=== PATIENT | male | born 1930 | race Caucasian/White ===

== ENCOUNTER → 2016-07-26 | Outpatient (CLI) | payer MEDICARE, BC ==
--- NOTE | 2016-07-26 15:14 | US ---
EXAMINATION TYPE: US thyroid st tissue head/neck DATE OF EXAM: 07/26/2016 2:44 PM COMPARISON: US on PACS May 31, 2015. CLINICAL HISTORY: E04.1 Thyroid nodule. GLAND SIZE: Right Lobe: 4.0 x 1.3 x 1.9 cm Overall Parenchyma: heterogenous Left Lobe: 2.7 x 0.9 x 0.8 cm Overall Parenchyma: homogeneous Isthmus Thickness: 0.3 cm NODULES RIGHT: # of nodules measured on right: 1 1. 1.4 X 1.3 x 1.2 cm hypoechoic mixed nodule at the mid pole with poorly defined margins. This no dule is wider than tall and shows intranodular vascularity. Prior size: 1.3 x 0.9 x 1.0 cm LEFT: # of nodules measured on left: 0 ISTHMUS: # of nodules measured in the isthmus: 0 There is redemonstration of small sized left thyroid lobe. There is stable 1.3 cm solid and cystic no dule mid pole level right thyroid lobe. No new nodules are evident. IMPRESSION: Stable 1.3 cm mixed right thyroid nodule. No new nodules identified.
== END | disposition home or self-care (01) ==
LOC: RADUSWWP 14:18
PROVIDERS: ATTEND Family Medicine
DX: E04.1 Nontoxic single thyroid nodule (principal)
CPT/HCPCS: 76536

== ENCOUNTER 2016-08-12 19:57 | Emergency (ER) | payer MEDICARE, BC ==
[2016-08-12 20:23] VITALS: TEMP 97.4
--- NOTE | 2016-08-12 20:50 | ED ---
General Adult HPI - General Chief complaint: Neuro Symptoms/Deficit Stated complaint: Poss Stroke Time Seen by Provider: 08/12/16 20:14 Source: patient, family Mode of arrival: wheelchair Limitations: no limitations - History of Present Illness Initial comments: 86-year-old male presents with weakness. He is been weaker over the last 2 days he has been leaning to the left side today. No acute onset no difficulty with vision no double vision blurry vision no slurring his words no facial weakness no nausea vomiting chest pain. History of [id number] diabetes hypertension hyperlipidemia. No previous history of stroke. - Related Data Allergies Allergy/AdvReac Type Severity Reaction Status Date / Time No Known Allergies Allergy Verified 08/12/16 20:59 Review of Systems ROS Statement: Those systems with pertinent positive or pertinent negative responses have been documented in the HPI. ROS Other: All systems not noted in ROS Statement are negative. Constitutional: Denies: fever, chills Eyes: Denies: eye pain, eye discharge ENT: Denies: ear pain, throat pain Respiratory: Denies: cough Cardiovascular: Denies: chest pain Gastrointestinal: Denies: abdominal pain, nausea, vomiting, diarrhea Skin: Denies: rash Neurological: Denies: headache Psychiatric: Denies: anxiety, depression Hematological/Lymphatic: Denies: easy bleeding, easy bruising Past Medical History Past Medical History: Dementia, Diabetes Mellitus, Hyperlipidemia, Hypertension Additional Past Medical History / Comment(s): CLL History of Any Multi-Drug Resistant Organisms: None Reported Additional Past Surgical History / Comment(s): cataract Past Psychological History: No Psychological Hx Reported Smoking Status: Former smoker Past Alcohol Use History: None Reported Past Drug Use History: None Reported General Exam Limitations: no limitations General appearance: alert, in no apparent distress Head exam: Present: atraumatic Eye exam: Present: normal appearance, PERRL, EOMI ENT exam: Present: normal oropharynx, mucous membranes moist Neck exam: Present: normal inspection Respiratory exam: Present: normal lung sounds bilaterally Cardiovascular Exam: Present: regular rate, normal heart sounds GI/Abdominal exam: Present: soft. Absent: tenderness Extremities exam: Present: normal inspection Back exam: Present: normal inspection Neurological exam: Present: alert, oriented X3, CN II-XII intact, other ( Masklike facies somewhat slow in movement questions whether there is some Parkinson's. His stroke scale was 0). Absent: motor sensory deficit, reflexes normal Skin exam: Present: warm, dry Course Vital Signs 08/12/16 08/12/16 20:18 23:59 Temperature 97.4 F L Pulse Rate 64 61 Respiratory 18 18 Rate Blood Pressure 169/66 151/79 O2 Sat by Pulse 98 96 Oximetry Medical Decision Making - Lab Data Result diagrams: 08/12/16 21:10 08/12/16 21:10 Lab Results 08/12/16 08/12/16 08/12/16 Range/Units 20:33 21:10 21:10 WBC 24.9 H (3.8-10.6) k/uL RBC 3.15 L (4.30-5.90) m/uL Hgb 10.2 L (13.0-17.5) gm/dL Hct 30.8 L (39.0-53.0) % MCV 97.8 (80.0-100.0) fL MCH 32.5 (25.0-35.0) pg MCHC 33.3 (31.0-37.0) g/dL RDW 13.2 (11.5-15.5) % Plt Count 109 L (150-450) k/uL Neutrophils % (Manual) 19.0 % Lymphocytes % (Manual) 80.0 % Monocytes % (Manual) 1.0 % Neutrophils # (Manual) 4.7 (1.3-7.7) k/uL Lymphocytes # (Manual) 19.9 H (1.0-4.8) k/uL Monocytes # (Manual) 0.2 (0-1.0) k/uL Nucleated RBCs 0 (0-0) /100 WBC Manual Slide Review Performed RBC Morphology Normal PT 11.5 (9.0-12.0) sec INR 1.1 (<1.1) APTT 25.1 (22.0-30.0) sec Sodium 141 (137-145) mmol/L Potassium 4.6 (3.5-5.1) mmol/L Chloride 103 (98-107) mmol/L Carbon Dioxide 25 (22-30) mmol/L Anion Gap 13 mmol/L BUN 37 H (9-20) mg/dL Creatinine 1.10 (0.66-1.25) mg/dL Est GFR (MDRD) Af Amer >60 (>60 ml/min/1.73 sqM) Est GFR (MDRD) Non-Af >60 (>60 ml/min/1.73 sqM) Glucose 172 H (74-99) mg/dL Calcium 9.4 (8.4-10.2) mg/dL Total Bilirubin 1.1 (0.2-1.3) mg/dL AST 26 (17-59) U/L ALT 22 (21-72) U/L Alkaline Phosphatase 46 (38-126) U/L Total Creatine Kinase (55-170) U/L CK-MB (CK-2) (0.0-2.4) ng/mL CK-MB (CK-2) Rel Index Troponin I Total Protein 6.6 (6.3-8.2) g/dL Albumin 4.4 (3.5-5.0) g/dL 08/12/16 08/12/16 Range/Units 21:10 21:10 WBC (3.8-10.6) k/uL RBC (4.30-5.90) m/uL Hgb (13.0-17.5) gm/dL Hct (39.0-53.0) % MCV (80.0-100.0) fL MCH (25.0-35.0) pg MCHC (31.0-37.0) g/dL RDW (11.5-15.5) % Plt Count (150-450) k/uL Neutrophils % (Manual) % Lymphocytes % (Manual) % Monocytes % (Manual) % Neutrophils # (Manual) (1.3-7.7) k/uL Lymphocytes # (Manual) (1.0-4.8) k/uL Monocytes # (Manual) (0-1.0) k/uL Nucleated RBCs (0-0) /100 WBC Manual Slide Review RBC Morphology PT (9.0-12.0) sec INR (<1.1) APTT (22.0-30.0) sec Sodium (137-145) mmol/L Potassium (3.5-5.1) mmol/L Chloride (98-107) mmol/L Carbon Dioxide (22-30) mmol/L Anion Gap mmol/L BUN (9-20) mg/dL Creatinine (0.66-1.25) mg/dL Est GFR (MDRD) Af Amer (>60 ml/min/1.73 sqM) Est GFR (MDRD) Non-Af (>60 ml/min/1.73 sqM) Glucose (74-99) mg/dL Calcium (8.4-10.2) mg/dL Total Bilirubin (0.2-1.3) mg/dL AST (17-59) U/L ALT (21-72) U/L Alkaline Phosphatase (38-126) U/L Total Creatine Kinase 65 (55-170) U/L CK-MB (CK-2) 1.4 (0.0-2.4) ng/mL CK-MB (CK-2) Rel Index 2.2 Troponin I Cancelled <0.012 Total Protein (6.3-8.2) g/dL Albumin (3.5-5.0) g/dL - EKG Data -: EKG Interpreted by Me 08/12/16 20:51 EKG 08/12/20162005 ventricular rate 60 bpm, [place] interval 202 ms, QRS duration 86 ms, QT interval 388 ms normal sinus rhythm borderline first-degree heart block no significant ST-T change Disposition Clinical Impression: Parkinsonian features Disposition: HOME SELF-CARE Condition: Fair Instructions: Parkinson Disease (ED) Referrals: Nikki Cisse III, MD [Primary Care Provider] - 1-2 days
[2016-08-12 20:52] LABS: INR 1.1 (<1.1); Partial Thromboplastin Time 25.1 sec (22.0-30.0); Prothrombin Time 11.5 sec (9.0-12.0)
[2016-08-12 21:16] LABS: CHCM 32.9; HCT 30.8 % (39.0-53.0); HDW 2.46; HGB 10.2 gm/dL (13.0-17.5); MCH 32.5 pg (25.0-35.0); MCHC 33.3 g/dL (31.0-37.0); MCV 97.8 fL (80.0-100.0); Mean Platelet Volume 7.8; RBC 3.15 m/uL (4.30-5.90); RDW 13.2 % (11.5-15.5); WBC 24.9 k/uL (3.8-10.6); WBC (Perox) 24.93
[2016-08-12 21:23] LABS: Add Differential Manual Differential
[2016-08-12 21:31] LABS: Manual Review Performed; Nucleated Red Blood Cells 0 /100 WBC (0-0); RBC Morphology Normal; Total Cells Counted 200
[2016-08-12 21:45] LABS: Anion Gap 13 mmol/L; Calcium 9.4 mg/dL (8.4-10.2); Carbon Dioxide 25 mmol/L (22-30); Chloride 103 mmol/L (98-107); Glucose 172 mg/dL (74-99); Non-African American GFR(MDRD) >60 (>60 ml/min/1.73 sqM); Sodium 141 mmol/L (137-145); Total Bilirubin 1.1 mg/dL (0.2-1.3); Total Protein 6.6 g/dL (6.3-8.2)
[2016-08-12 21:46] LABS: Blood Urea Nitrogen 37 mg/dL (9-20); Potassium 4.6 mmol/L (3.5-5.1)
[2016-08-12 21:47] LABS: ALT 22 U/L (21-72); AST 26 U/L (17-59); Alkaline Phosphatase 46 U/L (38-126)
--- NOTE | 2016-08-12 21:53 | CT ---
EXAMINATION TYPE: CT brain wo con DATE OF EXAM: 08/12/2016 9:21 PM COMPARISON: NONE INDICATION: Neural deficits DLP: 1167.7 mGycm, Automated exposure control for dose reduction was used. CONTRAST: None CT of the brain is performed utilizing 3 mm thick sections through the posterior fossa and 3 mm thick sections through the remaining calvarium. Study is performed within 24 hours of arrival to the hosp ital. No abnormal hyperdensity is present to suggest an acute intracranial hemorrhage. No mass lesion is evident. No acute infarcts are evident. Periventricular white matter hypodensity is present compatible with mi crovascular ischemic change Ventricles and sulci are prominent for the patient age. Paranasal sinuses and mastoid air cells within the [id number] are clear. IMPRESSIONS: 1. Atrophy with periventricular white matter ischemic type changes.
--- NOTE | 2016-08-12 21:55 | XR ---
EXAMINATION TYPE: XR chest 2V DATE OF EXAM: 08/12/2016 9:17 PM COMPARISON: None INDICATION: Altered mental status TECHNIQUE: Single frontal view of the chest is obtained. FINDINGS: The heart size is normal. The pulmonary vasculature is normal. The lungs are clear. IMPRESSION: 1. No acute pulmonary process.
[2016-08-12 22:03] LABS: Creatine Kinase MB 1.4 ng/mL (0.0-2.4)
[2016-08-13 00:27] VITALS: BP 165/65; PULSE 62; RESP 16
== END 2016-08-13 01:06 | disposition home or self-care (01) ==
LOC: EC 19:57
DX: R53.1 Weakness (principal); Z87.891 Personal history of nicotine dependence
CPT/HCPCS: 36415; 70450; 71020; 80053; 82550; 82553; 84484; 85025; 85610; 85730; 93005; 99284

== ENCOUNTER → 2016-09-12 | Outpatient (CLI) | payer MEDICARE, BC ==
--- NOTE | 2016-09-12 11:51 | MR ---
MRI of the brain with and without contrast HISTORY: Abnormal gait. TECHNIQUE: T1-weighted sagittal, T2, FLAIR, and diffusion axial, postcontrast T1 axial and coronal views of the brain are submitted. CONTRAST: 15 mL MultiHance COMPARISON: CT brain 08/12/2016, MRI IACs 07/25/2012 FINDINGS: There is no evidence of acute ischemia. Abnormal signal within the juventino is suggestive of remote ischemic change with metallic artifact is see n. 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 There is generalized degenerative change of the greater central component. No enhancing mass. Changes of chronic mastoiditis and sinusitis noted. Craniocervical junction maintained. Sella turcica has a normal appearance. No evidence of cerebellopo ntine angle mass. WHITE MATTER: Confluent and numerous multifocal areas of abnormal white matter signal are not specific. IMPRESSION: 1. No definite acute ischemia. Area of high signal on diffusion within the juventino is felt more likely a rtifactual but should be correlated clinically. 2. Degenerative change with a much greater central component raises the possibility of normal pressur e hydrocephalus. 3. Nonspecific white matter changes most typical remote microvascular ischemia.
== END | disposition home or self-care (01) ==
LOC: RADMRIMAIN 10:51
PROVIDERS: ATTEND Family Medicine
DX: G31.9 Degenerative disease of nervous system, unspecified (principal); R90.82 White matter disease, unspecified
CPT/HCPCS: 70553; A9577

== ENCOUNTER 2017-05-10 19:59 | Inpatient (IN) | payer MEDICARE, BC ==
[2017-05-10 20:04] LABS: Glucose,Whole Blood 341 mg/dL (75-99)
[2017-05-10] MEDS ORDERED: SODIUM CHLORIDE 0.9% 1,000 ML IV ONE (20:15)
--- NOTE | 2017-05-10 20:19 | ED ---
General Adult HPI - General Chief complaint: Altered Mental Status Stated complaint: Altered Time Seen by Provider: 05/10/17 20:02 Source: patient, family, EMS, RN notes reviewed Mode of arrival: EMS Limitations: altered mental status - History of Present Illness Initial comments: Patient is a pleasant 87-year-old male presenting to the emergency department with change in mental status. Patient has had a rapid decline in the mental status over the past 2 months. Patient has been evaluated for Parkinson's. Patient has had some rigidity of his hands and wrists. Patient is having difficulty performing activities of daily living. Patient is having difficulty with walking especially the last 2 days. Family is concerned for possible infection. No reported isolated area of weakness. Patient has had some leg swelling. 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 Patient states he did previously have discomfort with that however that has improved. Patient is a poor historian and majority of history comes from family. - Related Data Home Medications Medication Instructions Recorded Confirmed Atorvastatin [Lipitor] 20 mg PO DAILY 05/10/17 05/10/17 Finasteride [Proscar] 5 mg PO DAILY 05/10/17 05/10/17 Furosemide [Lasix] 20 mg PO Q48H 05/10/17 05/10/17 Lisinopril [Prinivil] 10 mg PO DAILY 05/10/17 05/10/17 Potassium Chloride ER [K-Dur 10] 10 meq PO Q48H 05/10/17 05/10/17 glipiZIDE [Glucotrol] 10 mg PO AC-BRKFST 05/10/17 05/10/17 Allergies Allergy/AdvReac Type Severity Reaction Status Date / Time No Known Allergies Allergy Verified 05/10/17 20:26 Review of Systems ROS Statement: Those systems with pertinent positive or pertinent negative responses have been documented in the HPI. ROS Other: All systems not noted in ROS Statement are negative. Constitutional: Denies: fever Eyes: Denies: eye pain ENT: Denies: ear pain Respiratory: Denies: cough Cardiovascular: Denies: chest pain Endocrine: Denies: fatigue Gastrointestinal: Denies: abdominal pain Genitourinary: Denies: dysuria Musculoskeletal: Denies: back pain Skin: Denies: rash Neurological: Reports: weakness, confusion. Denies: headache Past Medical History Past Medical History: Dementia, Diabetes Mellitus, Hyperlipidemia, Hypertension Additional Past Medical History / Comment(s): CLL History of Any Multi-Drug Resistant Organisms: None Reported Additional Past Surgical History / Comment(s): cataract Past Psychological History: No Psychological Hx Reported Smoking Status: Former smoker Past Alcohol Use History: None Reported Past Drug Use History: None Reported General Exam Limitations: altered mental status General appearance: alert, in no apparent distress Head exam: Present: atraumatic Eye exam: Present: normal appearance, PERRL, other (Left eye unable to move laterally.) ENT exam: Present: normal oropharynx Neck exam: Present: normal inspection Respiratory exam: Present: normal lung sounds bilaterally Cardiovascular Exam: Present: regular rate, normal rhythm GI/Abdominal exam: Present: soft. Absent: tenderness Extremities exam: Present: pedal edema. Absent: calf tenderness Neurological exam: Present: alert, altered Expanded Patient oriented to: Present: person. Absent: place, time Cranial nerves: EOM's Intact: Abnormal Left (Left eye unable to move laterally) , Facial Sensation: Normal Sensory exam: Upper Extremity Light Touch: Normal, Lower Extremity Light Touch: Normal Motor strength exam: RUE: 5, LUE: 5, RLE: 5, LLE: 5 Eye Response: (4) open spontaneously Motor Response: (6) obeys commands Verbal Response: (4) confused conversation Psychiatric exam: Present: normal affect, normal mood Skin exam: Present: normal color Course Vital Signs 05/10/17 05/10/17 05/10/17 20:00 20:06 21:36 Temperature 98.4 F Pulse Rate 75 76 71 Respiratory 16 18 16 Rate Blood Pressure 142/63 114/54 O2 Sat by Pulse 97 97 98 Oximetry EKG Findings - EKG Comments: EKG Findings:: Sinus rhythm 77. PVC present. CO 168. QRS 88. QT 364. QTC 411. Normal axis. Normal QRS. No acute ST change. Medical Decision Making - Medical Decision Making Patient reevaluated and resting comfortably in bed. Family states patient does have a history of CLL. Case was discussed in detail with Dr. Manning, who will admit for Dr. Cisse. - Lab Data Result diagrams: 05/10/17 20:43 05/10/17 20:43 Lab Results 05/10/17 05/10/17 05/10/17 Range/Units 20:02 20:30 20:43 WBC (3.8-10.6) k/uL RBC (4.30-5.90) m/uL Hgb (13.0-17.5) gm/dL Hct (39.0-53.0) % MCV (80.0-100.0) fL MCH (25.0-35.0) pg MCHC (31.0-37.0) g/dL RDW (11.5-15.5) % Plt Count (150-450) k/uL Neutrophils % % Lymphocytes % % Monocytes % % Eosinophils % % Basophils % % Neutrophils # (1.3-7.7) k/uL Lymphocytes # (1.0-4.8) k/uL Monocytes # (0-1.0) k/uL Eosinophils # (0-0.7) k/uL Basophils # (0-0.2) k/uL Manual Slide Review Hypochromasia PT (9.0-12.0) sec INR (<1.2) APTT (22.0-30.0) sec Sodium 136 L (137-145) mmol/L Potassium 4.4 (3.5-5.1) mmol/L Chloride 98 (98-107) mmol/L Carbon Dioxide 31 H (22-30) mmol/L Anion Gap 7 mmol/L BUN 36 H (9-20) mg/dL Creatinine 1.00 (0.66-1.25) mg/dL Est GFR (MDRD) Af Amer >60 (>60 ml/min/1.73 sqM) Est GFR (MDRD) Non-Af >60 (>60 ml/min/1.73 sqM) Glucose 321 H (74-99) mg/dL POC Glucose (mg/dL) 341 H (75-99) mg/dL POC Glu Business Operations Director ID Marianne Zhong Calcium 8.8 (8.4-10.2) mg/dL Total Bilirubin 0.8 (0.2-1.3) mg/dL AST 11 L (17-59) U/L ALT 32 (21-72) U/L Alkaline Phosphatase 77 (38-126) U/L Total Creatine Kinase (55-170) U/L CK-MB (CK-2) (0.0-2.4) ng/mL CK-MB (CK-2) Rel Index Troponin I (0.000-0.034) ng/mL Total Protein 4.8 L (6.3-8.2) g/dL Albumin 2.5 L (3.5-5.0) g/dL Urine Color Yellow Urine Appearance Clear (Clear) Urine pH 5.0 (5.0-8.0) Ur Specific Gerry 1.011 (1.001-1.035) Urine Protein Negative (Negative) Urine Glucose (UA) 4+ H (Negative) Urine Ketones Negative (Negative) Urine Blood Trace H (Negative) Urine Nitrite Negative (Negative) Urine Bilirubin Negative (Negative) Urine Urobilinogen <2.0 (<2.0) mg/dL Ur Leukocyte Esterase Negative (Negative) Urine RBC 1 (0-5) /hpf Urine WBC <1 (0-5) /hpf Hyaline Casts 8 H (0-2) /lpf Urine Mucus Rare H (None) /hpf Acetone, Qual Negative (Negative) 05/10/17 05/10/17 05/10/17 Range/Units 20:43 20:43 20:43 WBC 19.8 H (3.8-10.6) k/uL RBC 2.60 L (4.30-5.90) m/uL Hgb 7.4 L (13.0-17.5) gm/dL Hct 23.9 L (39.0-53.0) % MCV 91.9 (80.0-100.0) fL MCH 28.5 (25.0-35.0) pg MCHC 31.0 (31.0-37.0) g/dL RDW 13.5 (11.5-15.5) % Plt Count 283 (150-450) k/uL Neutrophils % 26 % Lymphocytes % 70 % Monocytes % 1 % Eosinophils % 0 % Basophils % 1 % Neutrophils # 5.1 (1.3-7.7) k/uL Lymphocytes # 13.8 H (1.0-4.8) k/uL Monocytes # 0.2 (0-1.0) k/uL Eosinophils # 0.0 (0-0.7) k/uL Basophils # 0.2 (0-0.2) k/uL Manual Slide Review Performed Hypochromasia Marked PT 10.9 (9.0-12.0) sec INR 1.1 (<1.2) APTT 23.4 (22.0-30.0) sec Sodium (137-145) mmol/L Potassium (3.5-5.1) mmol/L Chloride (98-107) mmol/L Carbon Dioxide (22-30) mmol/L Anion Gap mmol/L BUN (9-20) mg/dL Creatinine (0.66-1.25) mg/dL Est GFR (MDRD) Af Amer (>60 ml/min/1.73 sqM) Est GFR (MDRD) Non-Af (>60 ml/min/1.73 sqM) Glucose (74-99) mg/dL POC Glucose (mg/dL) (75-99) mg/dL POC Glu Business Operations Director ID Calcium (8.4-10.2) mg/dL Total Bilirubin (0.2-1.3) mg/dL AST (17-59) U/L ALT (21-72) U/L Alkaline Phosphatase (38-126) U/L Total Creatine Kinase <20 L (55-170) U/L CK-MB (CK-2) 0.5 (0.0-2.4) ng/mL CK-MB (CK-2) Rel Index Troponin I <0.012 (0.000-0.034) ng/mL Total Protein (6.3-8.2) g/dL Albumin (3.5-5.0) g/dL Urine Color Urine Appearance (Clear) Urine pH (5.0-8.0) Ur Specific Gerry (1.001-1.035) Urine Protein (Negative) Urine Glucose (UA) (Negative) Urine Ketones (Negative) Urine Blood (Negative) Urine Nitrite (Negative) Urine Bilirubin (Negative) Urine Urobilinogen (<2.0) mg/dL Ur Leukocyte Esterase (Negative) Urine RBC (0-5) /hpf Urine WBC (0-5) /hpf Hyaline Casts (0-2) /lpf Urine Mucus (None) /hpf Acetone, Qual (Negative) - Radiology Data Radiology results: report reviewed (Computed tomography scan of the brain shows atrophy and normal pressure hydrocephalus. No acute abnormality.), image reviewed (Two-view chest x-ray shows no acute process.) Disposition Clinical Impression: Altered mental status Disposition: ADMITTED IP TO THIS [facility] Referrals: Nikki Cisse III, MD [Primary Care Provider] - 1-2 days Decision Time: 21:45
[2017-05-10 20:50] LABS: Appearance,Urine Clear (Clear); Bilirubin,Urine Negative (Negative); Blood,Urine Trace (Negative); Color,Urine Yellow; Glucose,Urine (UA) 4+ (Negative); Hyaline Casts,Urine 8 /lpf (0-2); Ketones,Urine Negative (Negative); Leukocyte Esterase,Urine Negative (Negative); Mucus,Urine Rare /hpf; Nitrite,Urine Negative (Negative); Protein,Urine Negative (Negative); RBC,Urine 1 /hpf (0-5); Specific Gravity,Urine 1.011 (1.001-1.035); Urobilinogen,Urine <2.0 mg/dL (<2.0); WBC,Urine <1 /hpf (0-5)
[2017-05-10 21:03] LABS: INR 1.1 (<1.2); Partial Thromboplastin Time 23.4 sec (22.0-30.0); Prothrombin Time 10.9 sec (9.0-12.0)
[2017-05-10 21:08] LABS: ALT 32 U/L (21-72); AST 11 U/L (17-59); Albumin 2.5 g/dL (3.5-5.0); Alkaline Phosphatase 77 U/L (38-126); Anion Gap 7 mmol/L; Blood Urea Nitrogen 36 mg/dL (9-20); Calcium 8.8 mg/dL (8.4-10.2); Carbon Dioxide 31 mmol/L (22-30); Chloride 98 mmol/L (98-107); Glucose 321 mg/dL (74-99); Potassium 4.4 mmol/L (3.5-5.1); Sodium 136 mmol/L (137-145); Total Bilirubin 0.8 mg/dL (0.2-1.3); Total Protein 4.8 g/dL (6.3-8.2)
[2017-05-10 21:11] LABS: Basophils # (A) 0.2 k/uL (0-0.2); Basophils % (A) 1 %; Eosinophils % (A) 0 %; HCT 23.9 % (39.0-53.0); HGB 7.4 gm/dL (13.0-17.5); Hypochromasia Marked; MCH 28.5 pg (25.0-35.0); MCV 91.9 fL (80.0-100.0); Mean Platelet Volume 7.7; Monocytes # (A) 0.2 k/uL (0-1.0); Monocytes % (A) 1 %; Neutrophils # (A) 5.1 k/uL (1.3-7.7); Neutrophils % (A) 26 %; Platelet Count 283 k/uL (150-450); RDW 13.5 % (11.5-15.5); WBC 19.8 k/uL (3.8-10.6)
[2017-05-10 21:13] LABS: Creatine Kinase <20 U/L (55-170); Lymphocytes # (A) 13.8 k/uL (1.0-4.8)
--- NOTE | 2017-05-10 21:18 | CT ---
EXAMINATION TYPE: CT brain wo con DATE OF EXAM: 05/10/2017 COMPARISON: NONE HISTORY: Altered mental status. CT DLP: 1058 mGycm Automated exposure control for dose reduction was used. FINDINGS: THERE IS CEREBRAL CORTICAL ATROPHY. THERE IS NO MASS EFFECT NOR MIDLINE SHIFT. THERE IS NO SIGN OF IN TRACRANIAL HEMORRHAGE. THERE IS ENLARGEMENT OF THE VENTRICLES. CALVARIUM IS INTACT. 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 No acute intracranial abnormality.
--- NOTE | 2017-05-10 21:20 | XR ---
EXAMINATION TYPE: XR chest 2V DATE OF EXAM: 05/10/2017 COMPARISON: 08/12/2016 HISTORY: Altered mental status. Chest pain TECHNIQUE: Frontal and lateral views of the chest are obtained. FINDINGS: There is no heart failure nor confluent pneumonic infiltrate. There is calcified granuloma ta in the mediastinum. There are chest leads. Bony thorax is intact. IMPRESSION: No active cardiopulmonary disease. No change. Normal heart.
[2017-05-10 21:27] LABS: Creatine Kinase MB 0.5 ng/mL (0.0-2.4); Troponin I <0.012 ng/mL (0.000-0.034)
[2017-05-10 21:29] LABS: Lymphocytes % (A) 70 %
--- NOTE | 2017-05-10 22:25 | XR ---
EXAMINATION TYPE: XR pelvis AP view DATE OF EXAM: 05/10/2017 COMPARISON: NONE HISTORY: Pain TECHNIQUE: Single view FINDINGS: Pelvic ring appears intact. Proximal femurs are intact. I see no fracture. Sacroiliac joint s appear normal. Hip joint spaces are normal for age. IMPRESSION: Negative pelvis x-ray exam.
[2017-05-10 23:19] LABS: Glucose,Whole Blood 339 mg/dL (75-99)
[2017-05-10] MEDS ORDERED: INSULIN ASPART 100 UNIT/ML 1 ML 10 ML VIAL SQ STA ×2 (23:20→23:22)
[2017-05-11] MEDS: SODIUM CHLORIDE 0.9% 1,000 ML IV SCH ×3 (00:41→14:31)
[2017-05-11 01:13] LABS: Glucose,Whole Blood 269 mg/dL (75-99)
[2017-05-11 05:41] LABS: Glucose,Whole Blood 114 mg/dL (75-99)
[2017-05-11 06:25] LABS: HCT 21.3 % (39.0-53.0); Hypochromasia Moderate; MCH 27.8 pg (25.0-35.0); MCHC 29.6 g/dL (31.0-37.0); MCV 93.7 fL (80.0-100.0); Mean Platelet Volume 7.4; Platelet Count 236 k/uL (150-450); RBC 2.28 m/uL (4.30-5.90); RDW 14.3 % (11.5-15.5); WBC 18.2 k/uL (3.8-10.6)
[2017-05-11] MEDS: INSULIN ASPART 100 UNIT/ML 1 ML 10 ML VIAL SQ SCH ×4 (06:30→21:33)
[2017-05-11 06:39] LABS: HGB 6.3 gm/dL (13.0-17.5)
[2017-05-11 06:40] LABS: Anion Gap 7 mmol/L; Blood Urea Nitrogen 33 mg/dL (9-20); Calcium 8.4 mg/dL (8.4-10.2); Carbon Dioxide 31 mmol/L (22-30); Chloride 102 mmol/L (98-107); Cholesterol <50 mg/dL (<200); Glucose 99 mg/dL (74-99); HDL Cholesterol 24 mg/dL (40-60); LDL Cholesterol,Calculated 18 mg/dL (0-99); Potassium 4.2 mmol/L (3.5-5.1); Sodium 140 mmol/L (137-145); Triglycerides 41 mg/dL (<150)
[2017-05-11] MEDS: glipiZIDE 10 MG TAB PO SCH (07:01)
[2017-05-11 07:26] LABS: Basophils # (M) 0.18 k/uL (0-0.2); Lymphocytes # (M) 12.19 k/uL (1.0-4.8); Monocytes # (M) 0.18 k/uL (0-1.0); Neutrophils # (M) 5.64 k/uL (1.3-7.7); Neutrophils % (M) 31 %; Nucleated Red Blood Cells 0 /100 WBC (0-0); Total Cells Counted 100
--- NOTE | 2017-05-11 08:07 | HP ---
HISTORY AND PHYSICAL CHIEF COMPLAINT: Change in mental status. HISTORY OF PRESENT ILLNESS: This 87-year-old gentleman with a past history of dementia, diabetes, hypertension, hyperlipidemia, chronic lymphedema, being followed by Dr. Cisse in the outpatient setting was admitted with change in mental status. After Thanksgiving the patient had a problem with the left testicular area with hydrosus and as well as which was aspirated by Dr. Isabel. The patient had problems with difficulty in ambulation and change in mental status and Parkinson's was suspected. The patient has also seen Dr. Art Huff in the outpatient setting. Currently for the last 2 days patient took a turn for the worse and the patient has minimal responsiveness and the patient taken to [facility] and admitted for further evaluation and treatment. White count is elevated. There is no history of any fever, rigors or chills. No history of any headache, loss of consciousness or seizures. The patient unable to give coherent history. Most of the history taken from my discussion with the ER physician as well as the family at the bedside and review of the chart. PAST MEDICAL HISTORY: History of dementia, diabetes, hypertension, hyperlipidemia, pneumonia, chronic lymphoid leukemia. MEDICATIONS: Prior to admission include: Medications are: 1. Prinivil 10 mg b.i.d. 2. Lasix 20 mg. 3. Proscar 5 mg daily. 4. Lipitor 20 mg daily. 5. Glucotrol 10 mg a.c. breakfast. 6. K-Dur 10 mEq q.48h hours. ALLERGIES: Allergies are none. Family history, social history and review of systems could not be taken at length. Otherwise because of the patient's change in mental status. Previous history of smoking per chart. PHYSICAL EXAM: Patient is stuporous, but arousable. Pulse 71, blood pressure 140/54, respirations 16, temperature 98.4, pulse ox 98% on 2 L. HEENT is conjunctivae normal. Oral mucosa dry. Neck is no jugular venous distention. No carotid bruit. No lymph node enlargement. Cardiovascular system: S1, S2 muffled. Respirations: Breath sounds diminished in the bases. No rhonchi and no crackles. ABDOMEN: Soft, obese, nontender. No mass palpable. Legs: Bilateral leg edema and excoriation also present. Nervous system: Higher functions as mentioned earlier. Otherwise minimal movements and increased tone and tremors also present. Gait: The patient is not able to ambulate. Skin: Diffuse rash present. Lymphatics: No lymph nodes palpable in the neck, axillae or groin. Joints: The patient has some arthralgia of the shoulder, distended knee on the right side. LAB: Investigations at this time shows WBC 19.2, hemoglobin 7.4, sodium 136, glucose 341 and 321. ASSESSMENT: 1. Change in mental status and weakness, rule out acute transient ischemic attack or stroke. 2. Rule out sepsis. 3. Increased WBC. 4. Anemia normocytic. 5. Hyponatremia. 6. Diabetes type 2. 7. Rule out Parkinson's. 8. Dementia. 9. Hyperlipidemia. 10.Hypertension. 11.History of chronic lymphoid leukemia. RECOMMENDATIONS AND DISCUSSION: This 87-year-old gentleman who presented with multiple complex medical issues, we will monitor the patient closely continue the current management and treatment. At this time I recommend broad-spectrum IV antibiotics. I would also recommend empiric antibiotics. Follow the cultures. Hematology, Oncology, Neurology consulted. We will hold off the empiric antibiotics at this time awaiting cultures. Full neurovascular workup is also being ordered including 2D echo and carotid Doppler. The prognosis extremely guarded because of multiple complex medical issues. Discussed with family who understands and agrees. Copy of dictation being forwarded to Dr. Cisse, who is the primary physician. Continue the IV fluids. DVT prophylaxis. See orders. We will hold diuretics for now. Further recommendations to follow. MMODL / IJN: [id number] / JEFERSON
--- NOTE | 2017-05-11 09:54 | US ---
EXAMINATION TYPE: US carotid duplex BILAT DATE OF EXAM: 05/11/2017 COMPARISON: NONE CLINICAL HISTORY: Stenosis. Altered mental status, exam done portable. EXAM MEASUREMENTS: RIGHT: Peak Systolic Velocity (PSV) cm/sec ----- Right CCA: 61.5 ----- Right ICA: 93.9 ----- Right ECA: 97.9 ICA/CCA ratio: 1.5 RIGHT: End Diastole cm/sec ----- Right CCA: 9.5 ----- Right ICA: 17.8 ----- Right ECA: 0.0 LEFT: Peak Systolic Velocity (PSV) cm/sec ----- Left CCA: 80.1 ----- Left ICA: 111.3 ----- Left ECA: 98.8 ICA/CCA ratio: 1.4 LEFT: End Diastole cm/sec ----- Left CCA: 10.5 ----- Left ICA: 20.9 ----- Left ECA: 0.0 VERTEBRALS (direction of flow): Right Vertebral: Antegrade Left Vertebral: Antegrade Rhythm: Arrhythmia Bilateral intimal thickening, minimal plaque bilateral bulb, no elevated velocities, no significant s tenosis. IMPRESSION: I DO NOT SEE EVIDENCE OF A HEMODYNAMICALLY SIGNIFICANT STENOSIS IN EITHER CAROTID SYSTEM. Criteria for Assigning % of Stenosis / Diameter reduction (Estimation based on the indirect measurements of the internal carotid artery velocities (ICA PSV). 1. Normal (no stenosis)=ICA PSV < 125 cm/s: ratio < 2.0: ICA EDV<40 cm/s. 2. Less than 50% stenosis=ICA PSV < 125 cm/s: ratio < 2.0: ICA EDV<40 cm/s. 3. 50 to 69% stenosis=ICA PSV of 125 to 230 cm/s: ration 2.0 ? 4.0: ICA EDV 40-100 cm/s. 4. Greater than 70% stenosis to near occlusion= ICA PSV > 230 cm/s: ratio > 4.0: ICA EDV > 100 cm/s. 5. Near occlusion= ICA PSV velocities may be low or undetectable: variable ratio and ICA EDV. 6. Total occlusion=unable to detect flow.
[2017-05-11] MEDS: LISINOPRIL 10 MG TAB PO SCH (09:58)
[2017-05-11] MEDS: HEPARIN SODIUM,PORCINE 5,000 UNIT/ML 1 ML VIAL SQ SCH ×2 (09:59→21:35)
[2017-05-11] MEDS: ATORVASTATIN 20 MG TAB PO SCH (09:59)
[2017-05-11] MEDS: FINASTERIDE 5 MG TAB PO SCH (09:59)
[2017-05-11] MEDS: POTASSIUM CHLORIDE ER 10 MEQ TAB.ER.PRT PO SCH (10:02)
[2017-05-11] MEDS: ACETAMINOPHEN TAB 325 MG TAB PO PRN (11:20)
[2017-05-11] MEDS: MULTIVITAMINS, THERA 1 EACH TAB PO SCH (11:20)
[2017-05-11] MEDS: FOLIC ACID 1 MG TAB PO SCH (11:20)
[2017-05-11] MEDS: THIAMINE 100 MG TAB PO SCH (11:20)
[2017-05-11 12:00] LABS: Glucose,Whole Blood 244 mg/dL (75-99)
[2017-05-11] MEDS ORDERED: FUROSEMIDE 10 MG/ML 2 ML VIAL IV STA (13:06)
[2017-05-11] MEDS ORDERED: TAMSULOSIN 0.4 MG CAP.ER.24H PO STA (13:58)
[2017-05-11 14:10] LABS: Hemoglobin A1C 10.5 % (4.0-6.0)
--- NOTE | 2017-05-11 14:49 | P.PN ---
Progress Note - Text Consult dictated Impression: 1- Severe anemia : Acute on chronic > ? blood loss, ? 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 R/O Hemolytic anemia 2- Progressive weakness 3- Parkinson disease 4- Moderate lower ext edema Recommendations: 1- Agree with supportive transfusion 2- Evaluate for Hemolytic process 3- No Rx of CLL at present D/W patient/daughter
--- NOTE | 2017-05-11 15:37 | ECHOF ---
Referral Reason:Thrombus MEASUREMENTS -------- HEIGHT: 188.0 cm WEIGHT: 61.7 kg BP: 139/64 IVSd: 1.0 cm (0.6 - 1.1) LVIDd: 5.1 cm (3.9 - 5.3) LVPWd: 1.0 cm (0.6 - 1.1) IVSs: 1.3 cm LVIDs: 3.2 cm LVPWs: 1.3 cm LAESV Index (A-L): 15.17 ml/m Ao Diam: 4.0 cm (2.0 - 3.7) AV Cusp: 2.4 cm (1.5 - 2.6) LA Diam: 2.9 cm (2.7 - 3.8) EPSS: 1.9 cm MV E Kit: 1.00 m/s MV DecT: 571 ms MV A Kit: 1.39 m/s MV E/A Ratio: 0.72 RAP: 5.00 mmHg RVSP: 31.79 mmHg MV EF SLOPE: 132.12 mm/s (70 - 150) MV EXCURSION: 2.05 cm (> 18.000) FINDINGS -------- Sinus rhythm. This was a technically adequate study. The left ventricular size is normal. Left ventricular wall thickness is normal. Overall left vent ricular systolic function is normal with, an EF between 55 - 60 %. The right ventricle is normal in size and function. Normal LA size by volume 22+/-6 ml/m2. The right atrium is normal in size. Aortic valve is trileaflet and is mildly thickened. The mitral valve leaflets are mildly thickened. There is trace to mild mitral regurgitation. Trace tricuspid regurgitation present. Right ventricular systolic pressure is normal at < 35 mmHg. There is no evidence of pulmonary hypertension. The pulmonic valve was not well visualized. The aortic root size is normal. Normal inferior vena cava with normal inspiratory collapse consistent with estimated right atrial pre ssure of 5 mmHg. There is no pericardial effusion. CONCLUSIONS -------- 1. Sinus rhythm. 2. This was a technically adequate study. 3. Left ventricular wall thickness is normal. 4. Normal LA size by volume 22+/-6 ml/m2. 5. Aortic valve is trileaflet and is mildly thickened. 6. The mitral valve leaflets are mildly thickened. 7. There is trace to mild mitral regurgitation. 8. Trace tricuspid regurgitation present. 9. Right ventricular systolic pressure is normal at < 35 mmHg. 10. The pulmonic valve was not well visualized. 11. The aortic root size is normal. 12. There is no pericardial effusion. FASHION INTERN: Yair Butler RDCS
[2017-05-11 17:05] LABS: Glucose,Whole Blood 140 mg/dL (75-99)
--- NOTE | 2017-05-11 18:23 | P.CNNES ---
History of Present Illness Consult date: 05/11/17 Reason for Consult: Patient with Parkinson's Disease and possible NPH. History of Present Illness: This patient is a 87-year-old right-handed white male who was admitted to Hospital with symptoms of worsening changes in mental status since of last year. Patient had been recently treated for a left testicular hydrocele. Following that his decline in mental status as well as ambulation worsened. He has been seen in the outpatient neurology clinic in December and March of last year and was recommended to consider treatment for mild Parkinson's disease. His daughter at that time did not wish to start him on any new medication. He has been showing increasing symptoms of weakness in his legs and difficulty with ambulation in the last week at home. His daughter with whom he lives has become primary caregiver for him as he requires almost 24 -hour care. The patient was brought in as he was having increasing weakness more recently over the last 2-3 days. He was showing a decline in his responsiveness at home. He was not eating well and there was concern that he may have a urinary tract infection especially since he showed a decline in mental status. Patient was brought into the emergency room and was seen in the ER by Dr. Correa. He was sent for a computed tomography scan of the brain for further evaluation of his recent falls. He also underwent plain x-ray of the pelvis which was negative for any fracture. CAT scan of the brain was reported by the radiologist as showing atrophy and normal pressure-type hydrocephalus. No other acute abnormality was detected. His CAT scan films were actually reviewed today by myself and compared to the previous CAT scan he had done on and there does not appear to be any major changes on this CAT scan as well. His findings do suggest ventriculomegaly but not typical findings for NPH. We did discuss this finding today with Dr. Manning his admitting physician. We will proceed with a lumbar puncture however to see if there is any improvement in his overall condition. We would also suggest that he begin treatment for mild parkinsonism with low-dose Sinemet. Physical therapy has been consulted and he may require subacute rehab placement as well. Today the patient is doing better in terms of his mental status. He is more alert this afternoon and is able to answer simple questions. We did discuss other options for evaluation of NPH including cisternogram in neurosurgical consult however his daughter Aniyah who is his power of deputy county attorney does not wish to proceed with that aggressive treatment until we see how he does with the planned procedures here. We will have physical therapy work with him to assess him for possible inpatient rehab placement. As noted this case was discussed at length with his daughter Aniyah who was at bedside. She is his power of deputy county attorney. His other daughter Alyssa is home he lives with and we have spoken to her in the past on some of his office visits. Aniyah will update her on our current treatment options and plans. The patient is much more awake and alert as compared to this morning. He is answering questions. He was seen by oncology today and there is no evidence of any concern regarding his history of CLL. We have discussed our recommendations for lumbar puncture and trial of low-dose Sinemet with his daughter Aniyah at bedside and she is in full agreement. Neurology is now been consulted for further evaluation and recommendations. Review of Systems Constitutional: Denies chills, Denies fever Eyes: denies blurred vision, denies pain Ears, nose, mouth and throat: Denies headache, Denies sore throat Cardiovascular: Denies chest pain, Denies shortness of breath Respiratory: Denies cough Gastrointestinal: Denies abdominal pain, Denies diarrhea, Denies nausea, Denies vomiting Musculoskeletal: Denies myalgias Integumentary: Denies pruritus, Denies rash Neurological: Reports aphasia, Reports change in mentation, Reports change in speech, Reports confusion, Reports gait dysfunction, Reports lack of coordination, Reports memory loss, Reports motor disturbance, Reports tremors, Denies numbness, Denies weakness Psychiatric: Denies anxiety, Denies depression Endocrine: Denies fatigue, Denies weight change Past Medical History Past Medical History: Coronary Artery Disease (CAD), Diabetes Mellitus, GERD/ Reflux, Hyperlipidemia, Hypertension, Osteoarthritis (OA), Prostate Disorder, Skin Disorder Additional Past Medical History / Comment(s): CLL, early stages of Parkinsons, basal cell carcinoma History of Any Multi-Drug Resistant Organisms: None Reported Past Surgical History: Appendectomy, Heart Catheterization With Stent Additional Past Surgical History / Comment(s): cataract Past Anesthesia/Blood Transfusion Reactions: No Reported Reaction Date of Last Stent Placement:: 1994 Past Psychological History: No Psychological Hx Reported, Anxiety Smoking Status: Never smoker Past Alcohol Use History: None Reported Past Drug Use History: None Reported - Past Family History Mother Family Medical History: CVA/TIA Additional Family Medical History / Comment(s): Parkinsons Father Family Medical History: Coronary Artery Disease (CAD) Medications and Allergies Home Medications Medication Instructions Recorded Confirmed Type Atorvastatin [Lipitor] 20 mg PO DAILY 05/10/17 05/10/17 History Finasteride [Proscar] 5 mg PO DAILY 05/10/17 05/10/17 History Furosemide [Lasix] 20 mg PO Q48H 05/10/17 05/10/17 History Lisinopril [Prinivil] 10 mg PO DAILY 05/10/17 05/10/17 History Potassium Chloride ER [K-Dur 10] 10 meq PO Q48H 05/10/17 05/10/17 History glipiZIDE [Glucotrol] 10 mg PO AC-BRKFST 05/10/17 05/10/17 History Allergies Allergy/AdvReac Type Severity Reaction Status Date / Time No Known Allergies Allergy Verified 05/10/17 20:26 Physical Examination - Vital Signs Vital Signs: Vital Signs Temp Pulse Pulse Resp BP BP BP 05/11/17 16:00 79 16 05/11/17 15:59 97.0 F L 79 16 137/63 05/11/17 13:48 97.1 F L 82 16 146/67 05/11/17 12:00 97.3 F L 72 16 138/64 05/11/17 11:25 98.8 F 80 18 120/55 05/11/17 10:55 97.2 F L 82 18 127/60 05/11/17 10:45 98.1 F 81 16 111/53 05/11/17 08:00 98.2 F 90 18 160/64 05/11/17 04:00 97.8 F 77 18 139/64 05/11/17 00:00 77 16 05/10/17 23:33 70 16 125/68 05/10/17 23:18 98.3 F 77 16 141/66 141/66 05/10/17 22:47 71 20 134/61 05/10/17 22:46 98 F 70 16 134/61 05/10/17 22:00 70 18 125/59 05/10/17 21:46 98.3 F 67 16 118/62 05/10/17 21:36 71 16 114/54 05/10/17 20:06 76 18 05/10/17 20:00 98.4 F 75 16 142/63 Pulse Ox 05/11/17 16:00 05/11/17 15:59 98 05/11/17 13:48 98 05/11/17 12:00 98 05/11/17 11:25 98 05/11/17 10:55 100 05/11/17 10:45 100 05/11/17 08:00 100 05/11/17 04:00 98 05/11/17 00:00 05/10/17 23:33 98 05/10/17 23:18 05/10/17 22:47 97 05/10/17 22:46 97 05/10/17 22:00 97 05/10/17 21:46 05/10/17 21:36 98 05/10/17 20:06 97 05/10/17 20:00 97 Intake and Output 05/11/17 05/11/17 05/11/17 06:59 14:59 22:59 Intake Total 650 Output Total 550 Balance 650 -550 Intake: IV 220 Invasive Line 1 10 Invasive Line 2 10 Sodium Chloride 0.9% 1, 200 000 ml @ 100 mls/hr IV . Q10H ONE Rx#:[id number] Oral 120 Blood Product 310 Rc As-1 Unit 310 [id number] Output: Urine 550 Straight 300 Other: Voiding Method Urinal Urinal Diaper # Voids 1 0 Weight 61.9 kg - Constitutional General appearance: average body habitus, cooperative - EENT EENT: PERRL, mucous membranes moist - Respiratory Respiratory: lungs clear, normal breath sounds - Cardiovascular Cardiovascular: regular rate, normal S1, normal S2 Extremities: no peripheral edema bilaterally - Gastrointestinal Gastrointestinal: normoactive bowel sounds - Integumentary Integumentary: normal - Neurologic Cranial nerve examination: PERRL, EOMI, VFF, V1/V2/V3 grossly intact, face symmetric, tongue midline, intact gag reflex, intact corneal reflex, normal palatal elevation Speech examination: intact Sensorimotor examination: intact Motor examination - right side: 3/5: biceps, triceps, wrist flexion, wrist extension, de icer finisher, hip flexors, knee extensors, dorsiflexion, toe extension (EHL) , plantarflexion Motor examination - left side: 3/5: biceps, triceps, wrist flexion, wrist extension, de icer finisher, hip flexors, knee extensors, dorsiflexion, toe extension (EHL) , plantarflexion Detailed sensory examination: intact Reflex and gait examination: intact Reflexes: 1+: ankle, bicep, knee, tricep - Musculoskeletal Musculoskeletal: no pain - Psychiatric Psychiatric: mood/affect appropriate, cooperative Results - Laboratory Findings CBC and BMP: 05/11/17 05:43 05/11/17 05:43 Abnormal Lab Findings: Abnormal Labs 05/10/17 05/10/17 05/10/17 20:02 20:30 20:43 WBC RBC Hgb Hct MCHC Lymphocytes # Lymphocytes # (Manual) Sodium 136 L Carbon Dioxide 31 H BUN 36 H Glucose 321 H POC Glucose (mg/dL) 341 H AST 11 L Lactate Dehydrogenase Total Creatine Kinase Total Protein 4.8 L Albumin 2.5 L HDL Cholesterol Urine Glucose (UA) 4+ H Urine Blood Trace H Hyaline Casts 8 H Urine Mucus Rare H Crossmatch 05/10/17 05/10/17 05/10/17 20:43 20:43 23:15 WBC 19.8 H RBC 2.60 L Hgb 7.4 L Hct 23.9 L MCHC Lymphocytes # 13.8 H Lymphocytes # (Manual) Sodium Carbon Dioxide BUN Glucose POC Glucose (mg/dL) 339 H AST Lactate Dehydrogenase Total Creatine Kinase <20 L Total Protein Albumin HDL Cholesterol Urine Glucose (UA) Urine Blood Hyaline Casts Urine Mucus Crossmatch 05/11/17 05/11/17 05/11/17 00:53 05:39 05:43 WBC RBC Hgb Hct MCHC Lymphocytes # Lymphocytes # (Manual) Sodium Carbon Dioxide 31 H BUN 33 H Glucose POC Glucose (mg/dL) 269 H 114 H AST Lactate Dehydrogenase Total Creatine Kinase Total Protein Albumin HDL Cholesterol 24 L Urine Glucose (UA) Urine Blood Hyaline Casts Urine Mucus Crossmatch 05/11/17 05/11/17 05/11/17 05:43 05:43 07:14 WBC 18.2 H RBC 2.28 L Hgb 6.3 L* Hct 21.3 L MCHC 29.6 L Lymphocytes # Lymphocytes # (Manual) 12.19 H Sodium Carbon Dioxide BUN Glucose POC Glucose (mg/dL) AST Lactate Dehydrogenase 271 L Total Creatine Kinase Total Protein Albumin HDL Cholesterol Urine Glucose (UA) Urine Blood Hyaline Casts Urine Mucus Crossmatch See Detail 01/06/18 01/06/18 11:52 16:42 WBC RBC Hgb Hct MCHC Lymphocytes # Lymphocytes # (Manual) Sodium Carbon Dioxide BUN Glucose POC Glucose (mg/dL) 244 H 140 H AST Lactate Dehydrogenase Total Creatine Kinase Total Protein Albumin HDL Cholesterol Urine Glucose (UA) Urine Blood Hyaline Casts Urine Mucus Crossmatch Assessment and Plan (1) Parkinsons disease Current Visit: Yes Status: Acute Code(s): G20 - PARKINSON'S DISEASE SNOMED Code(s): 85166984 (2) Acute encephalopathy Current Visit: Yes Status: Acute Code(s): G93.40 - ENCEPHALOPATHY, UNSPECIFIED SNOMED Code(s): 2479500 (3) Normal pressure hydrocephalus Current Visit: Yes Status: Acute Code(s): G91.2 - (IDIOPATHIC) NORMAL PRESSURE HYDROCEPHALUS SNOMED Code(s): 30185008 (4) Dementia Current Visit: Yes Status: Acute Code(s): F03.90 - UNSPECIFIED DEMENTIA WITHOUT BEHAVIORAL DISTURBANCE SNOMED Code(s): 48872777 Plan: This patient is a 87-year-old right-handed white male who was admitted to hospital with worsening decline in functional status over the last week at home. He stays at home with his daughter who is his primary caregiver Ms. Shah. Apparently he showing increasing lethargy and weakness and inability to ambulate. He was evaluated last year in December for possibility of mild parkinsonism and Parkinson's disease. He had very mild findings at that time and we had recommended starting him on Sinemet. His daughter did not wish to start him on Sinemet at that time. He was brought into the emergency room yesterday and subsequent admitted to Hospital. He underwent a computed tomography scan of the brain which reveals atrophy and normal pressure hydrocephalus. Actual review of the CAT scan films however suggest only moderate degree of ventriculomegaly. We will proceed with a lumbar puncture for further evaluation however and this was discussed today at length with the patient's daughter Aniyah who is his power of deputy county attorney as well as with Dr. Manning. We will also begin him on low dose Sinemet to see how he responds. He will likely need ongoing physical therapy and subacute rehab placement during this admission. We will obtain his spinal fluid results and see if there is any significant improvement for him with a therapeutic LP. We will also check for other CSF abnormalities. His overall prognosis at this time appears to be very guarded. He does have evidence of significant cortical atrophy which is the likely cause for his ventriculomegaly. He has history of underlying dementia. At this time we will continue with our current treatment plans and the daughters have been updated on recommendations. Case was discussed today at bedside with Aniyah his daughter who is his POA. She will conveyed this information to her other sister is well and update her on our recommendations. We will continue to monitor his progress closely. We have discussed other treatment options such as cisternogram in neurosurgery consultation but this will be placed on hold as the daughter Aniyah wishes to proceed with our current plan of treatment rather than transfer the patient to an outside institution at this time unless absolutely necessary. We will continue to monitor his progress closely during this admission. His overall prognosis at this time remains very guarded. Time with Patient: Greater than 30
--- NOTE | 2017-05-11 18:41 | CONS ---
CONSULTATION Mr. Luis is an 87-year-old male who presented with change in mental status. I am not able to obtain a good history from him. Cardiology consultation was requested according to the nursing staff because of some swelling in the lower extremities. The patient has a history of dementia, history of diabetes and hypertension according to the notes as well as history of chronic lymphocytic leukemia. He was found to be severely anemic on presentation. According to the note, his mental status has been deteriorating since [place] and has been very limited. I am not able to obtain any history of any prior cardiac history from the patient. Reviewing the notes, the patient has a history of hypertension, but no documented history of myocardial infarction according to the notes available to me. MEDICATION: Prior to the admission included lisinopril 10 mg daily, furosemide 20 mg every 48 hours, finasteride, Lipitor 20 mg daily. Glipizide and potassium. REVIEW OF SYSTEMS: Could not be obtained. PHYSICAL EXAMINATION: 87-year-old male, confused, no apparent distress. Blood pressure 138/60 with a heart rate in the 70s. HEAD: Normocephalic. Eyes sclerae anicteric. Neck good carotid upstroke. No bruit. No jugular venous distention. LUNGS: Clear to auscultation. Heart regular rate and rhythm, S1, S2. No S3. No rub. ABDOMEN: Soft, nontender. Positive bowel sounds. No organomegaly. Extremities 1+ ankle edema. LAB DATA: Revealed a hemoglobin of 6.3, white blood cell of 11.2, platelets count of 236. BUN and creatinine 33 and 0.9. Potassium 4.2. His EKG was sinus mechanism with rare PVCs. The chest x-ray shows no acute changes. IMPRESSION: 1. Change in mental status. Workup in progress. 2. Ankle edema with no evidence to suggest any congestive heart failure. 3. Severe anemia with history of CLL. 4. History of hypertension. 5. Hyperlipidemia. 6. Diabetes mellitus. 7. History of dementia according to the notes. RECOMMENDATION: From the cardiac standpoint, I will obtain echocardiogram to evaluate left ventricular systolic function. I see no evidence for active cardiac disease and I would not recommend any aggressive cardiac workup. Thank you for this consult. We will follow with you. MMODL / IJN: [id number] /
[2017-05-11 20:51] LABS: Glucose,Whole Blood 134 mg/dL (75-99)
--- NOTE | 2017-05-11 22:17 | CONS ---
CONSULTATION DATE OF CONSULT: 05/11/17. ADMITTING PHYSICIAN: Dr. Manning. REASON FOR CONSULTATION: Chronic leukemia. HISTORY OF PRESENT ILLNESS: Mr. 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 He has been followed without intervention by Dr. Dumont in our office. His most recent followup was in February 27, 2017 and then felt to be doing well from a hematology standpoint. Hemoglobin then 9.0, WBC was 20.5, and platelet count 200,000. The patient presented to the hospital with a week history of progressive weakness and failure to thrive with decreased oral intake and mental changes. At time of arrival to the hospital last night he was found to have a WBC of 19.8, hemoglobin of 7.4, and platelet count of 283. This morning his hemoglobin decreased to , white blood cell count and platelets remain stable. He was given 1 unit of packed red blood cells. When seen today he was tired and drowsy but arousable from sleep. He denies any specific discomfort. PAST MEDICAL HISTORY: 1. Chronic lymphocytic leukemia since September of 2013. As stated above. Being monitored clinically without intervention. 2. Moderate dementia. 3. Parkinson disease. 4. Hypertension. 5. Hyperlipidemia. 6. Benign prostatic hypertrophy. CURRENT MEDICATIONS: Reviewed and listed in electronic medical record. SOCIAL HISTORY: The patient is a lifetime nonsmoker. Denies any excessive use of alcohol. He resides with his daughter. REVIEW OF SYSTEMS: Progressive weakness and failure to thrive. He had no fever, chills, or night sweats. No reports of chest pain or shortness of breath. Decreased solid and liquid oral intake. He has slight dysuria. No polyuria and has been constipated. EXAMINATION: The patient was drowsy but arousable. Skin is warm and dry. Pale but nonicteric. Hair distribution within normal for age and gender. His blood pressure was 146/67, pulse is 82 and regular, respiratory rate of 16, not labored. Temperature was 97.1, but no pathologic cervical supraclavicular or infraclavicular lymphadenopathy. Trachea was in midline. Chest was clear with good air exchange bilaterally. HEART: Sounds are normal S1 and S2. No S3. No murmurs or rubs auscultated. Abdomen was soft. Liver and spleen were not clinically palpable and no masses or tenderness. No inguinal lymphadenopathy. Moderate edema in the lower extremity. Right more than left. Neurologic examination showed no focal motor or sensory deficits. Cranial nerves 2-12 unremarkable. IMPRESSION: 1. Progressive failure to thrive. 2. Progressive anemia of unknown etiology, I am concerned about acute blood loss, anemia may or may not be related to CLL. We need to evaluate for potential autoimmune hemolytic anemia, a rather common complication in patient's with proliferative disorders. 3. Chronic lymphocytic leukemia, being monitored without intervention since diagnosis in September of 2013. RECOMMENDATION: 1. I reviewed the expected stable CLL with the patient and his daughter. 2. Evaluate hemolysis workup requested. 3. Agree with supportive transfusion. 4. No immediate intervention from hematology standpoint at the present time. 5. I agree with current management. Will follow the patient along with you in the hospital. Further recommendation to follow. I discussed the case and assessment and recommendation with the patient and daughter at the bedside. MMVANESSAL / IJN: [id number] /
[2017-05-11 23:00] LABS: Iron Saturation 5.88 (15.00-50.00)
[2017-05-12] MEDS: ACETAMINOPHEN TAB 325 MG TAB PO PRN ×3 (00:31→19:56)
[2017-05-12 06:15] LABS: Glucose,Whole Blood 209 mg/dL (75-99)
[2017-05-12 06:18] LABS: HGB 7.1 gm/dL (13.0-17.5); Hypochromasia Moderate; MCHC 30.7 g/dL (31.0-37.0); Mean Platelet Volume 7.7; Platelet Count 193 k/uL (150-450); RBC 2.53 m/uL (4.30-5.90); RDW 13.8 % (11.5-15.5); Reticulocyte % 1.2 % (0.5-2.0); WBC 10.4 k/uL (3.8-10.6)
[2017-05-12 06:26] LABS: Anion Gap 5 mmol/L; Blood Urea Nitrogen 29 mg/dL (9-20); Calcium 8.1 mg/dL (8.4-10.2); Carbon Dioxide 29 mmol/L (22-30); Chloride 102 mmol/L (98-107); Glucose 143 mg/dL (74-99); Sodium 136 mmol/L (137-145); Uric Acid 2.6 mg/dL (3.5-8.5)
[2017-05-12 06:28] LABS: Potassium 4.1 mmol/L (3.5-5.1)
[2017-05-12 06:38] LABS: Lymphocytes # (M) 6.24 k/uL (1.0-4.8); Neutrophils # (M) 4.06 k/uL (1.3-7.7); Neutrophils % (M) 39 %; Nucleated Red Blood Cells 0 /100 WBC (0-0); Total Cells Counted 100
[2017-05-12] MEDS: glipiZIDE 10 MG TAB PO SCH (07:01)
[2017-05-12] MEDS: INSULIN ASPART 100 UNIT/ML 1 ML 10 ML VIAL SQ SCH ×4 (07:05→21:36)
[2017-05-12] MEDS: FINASTERIDE 5 MG TAB PO SCH (07:38)
[2017-05-12] MEDS: TAMSULOSIN 0.4 MG CAP.ER.24H PO SCH (07:38)
[2017-05-12] MEDS: ATORVASTATIN 20 MG TAB PO SCH (07:38)
[2017-05-12] MEDS: CARBIDOPA-LEVODOPA 10-100 MG 1 EACH TAB PO SCH ×3 (07:38→21:36)
[2017-05-12] MEDS: HEPARIN SODIUM,PORCINE 5,000 UNIT/ML 1 ML VIAL SQ SCH ×2 (07:39→19:56)
[2017-05-12] MEDS: LISINOPRIL 10 MG TAB PO SCH (07:39)
--- NOTE | 2017-05-12 08:33 | PN ---
PROGRESS NOTE DATE OF SERVICE: 05/11/2017 This 87-year-old gentleman admitted with diffuse generalized weakness is being closely monitored at this time. The patient was evaluated by Dr. Hyun Huff in the outpatient setting and Parkinson's has been considered, but the patient is progressively declining at this time. Patient is barely responsive at this time even though the staff reports that patient is taking adequate food at this time. The possibility of sepsis is a consideration. White count is elevated but could be also because of the chronic lymphoid leukemia. Dr. Monsalve is following the patient closely and severe anemia was also noted and different etiologies is also considered, possibly related to chronic lymphoid leukemia also. No treatment for lymph is being planned by Hematology/Oncology at this time. Also neurovascular workup. Carotid Doppler showed no evidence of any hemodynamically significant stenosis. A 2D echo with Doppler was also done by Cardiology showed ejection fraction around 50 to 60% within with no significant valvular abnormalities. The patient has been transfused 1 unit of blood for hemoglobin 6.3. PAST MEDICAL HISTORY: Reviewed. REVIEW OF SYSTEMS: Could not be taken. The patient has change in mental status. The patient does have ankle edema, but as per Cardiology, there is no evidence of any CHF at this time. PHYSICAL EXAM: The patient is stuporous. Pulse 79, blood pressure 130/60, respirations 16, temperature 97 degrees, pulse ox 98% room air. HEENT: Conjunctivae normal. NECK: No jugular venous distention. No carotid bruit. No lymph node enlargement. CARDIOVASCULAR: S1, S2. RESPIRATORY: Breath sounds diminished in the bases. Scattered rhonchi and crackles. ABDOMEN: Soft and nontender. No mass palpable. LEGS: Ankle edema present otherwise. NERVOUS SYSTEM: Higher functions as mentioned earlier, diffuse tremors, increased tone suggestive of Parkinson's present. SKIN: No ulcer, rash, bleeding. LAB: WBC 18, hemoglobin 6.2, sodium 140, potassium 4.2, glucose 114. ASSESSMENT: 1. Change in mental status and weakness possible acute transient ischemic attack or stroke. 2. Rule out sepsis. 3. Parkinsonian syndrome. 4. Gait dysfunction. 5. Bilateral leg edema without any evidence of congestive heart failure. 6. Increased WBC. 7. Anemia normocytic. 8. Hyponatremia. h/o hydrocele/spermatocele 9. Diabetes mellitus type 2. 10.Dementia. 11.Hyperlipidemia. 12.Hypertension. 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 RECOMMENDATIONS AND DISCUSSION: I recommend to continue current management, monitoring and symptomatic treatment at this time. Monitor fluid and electrolyte balance closely. Discussed with Dr. Huff at length. A small dose of Sinemet and lumbar puncture to rule out an acute neurological problem. Guarded prognosis. Further recommendations to follow. MMODL / IJN: [id number] / MTDD
--- NOTE | 2017-05-12 10:51 | P.GSCN ---
History of Present Illness Consult date: 05/12/17 Reason for Consult: Groin pain History of present illness: The patient is an 87-year-old male admitted through the emergency room for evaluation of reduced responsiveness. He has a history of Parkinson's disease but had not been treated for this prior to admission. He has been seen by Dr. Huff and has been placed on low-dose Sinemet. He remains somewhat lethargic and it was very difficult to obtain any history from him. The majority of his history is from a conversation with his nurse. He had seen Dr. Isabel sometime in late March or early April and had aspiration of either a hydrocele or spermatocele. Unfortunately I am unable to access however office electronic medical records at the present time for review of this. The patient apparently has had episodic discomfort in the suprapubic or right groin region and the family requested urologic evaluation due to the previous aspiration procedure. At the present time the patient denies any pain in the suprapubic or groin regions. He did have some difficulty voiding yesterday and was in and out cathed on one occasion for proximally 400 mL. He was started on tamsulosin yesterday evening and has been voiding since then. He has been incontinent of urine last voided several hours ago. A bladder scan was performed following my examination and showed only approximately 100 mL. Review of Systems ROS unobtainable: due to mental status Past Medical History Past Medical History: Coronary Artery Disease (CAD), Diabetes Mellitus, GERD/ Reflux, Hyperlipidemia, Hypertension, Osteoarthritis (OA), Prostate Disorder, Skin Disorder Additional Past Medical History / Comment(s): CLL, early stages of Parkinsons, basal cell carcinoma History of Any Multi-Drug Resistant Organisms: None Reported Past Surgical History: Appendectomy, Heart Catheterization With Stent Additional Past Surgical History / Comment(s): cataract Past Anesthesia/Blood Transfusion Reactions: No Reported Reaction Date of Last Stent Placement:: 1994 Past Psychological History: No Psychological Hx Reported, Anxiety Smoking Status: Never smoker Past Alcohol Use History: None Reported Past Drug Use History: None Reported - Past Family History Mother Family Medical History: CVA/TIA Additional Family Medical History / Comment(s): Parkinsons Father Family Medical History: Coronary Artery Disease (CAD) Medications and Allergies Home Medications Medication Instructions Recorded Confirmed Type Atorvastatin [Lipitor] 20 mg PO DAILY 05/10/17 05/10/17 History Finasteride [Proscar] 5 mg PO DAILY 05/10/17 05/10/17 History Furosemide [Lasix] 20 mg PO Q48H 05/10/17 05/10/17 History Lisinopril [Prinivil] 10 mg PO DAILY 05/10/17 05/10/17 History Potassium Chloride ER [K-Dur 10] 10 meq PO Q48H 05/10/17 05/10/17 History glipiZIDE [Glucotrol] 10 mg PO AC-BRKFST 05/10/17 05/10/17 History Allergies Allergy/AdvReac Type Severity Reaction Status Date / Time No Known Allergies Allergy Verified 05/10/17 20:26 Surgical - Exam Vital Signs Temp Pulse Resp BP Pulse Ox 98.4 F 75 16 142/63 97 05/10/17 20:00 05/10/17 20:00 05/10/17 20:00 05/10/17 20:00 05/10/17 20:00 - General no pain, chronically ill - Neck no lymphadectomy - Respiratory normal respiratory effort - Abdomen Abdomen: soft, non tender, no organomegaly, no masses - Genitourinary normal penis with no external lesions, testicles present, testicles non-tender, other (No palpable hydrocele or spermatocele) Results - Labs 05/12/17 05:51 05/12/17 05:51 Abnormal Lab Results - Last 24 Hours (Table) 05/11/17 05/11/17 05/11/17 Range/Units 05:43 05:43 05:43 RBC (4.30-5.90) m/uL Hgb (13.0-17.5) gm/dL Hct (39.0-53.0) % MCHC (31.0-37.0) g/dL Lymphocytes # (Manual) (1.0-4.8) k/uL Sodium (137-145) mmol/L BUN (9-20) mg/dL Glucose (74-99) mg/dL POC Glucose (mg/dL) (75-99) mg/dL Hemoglobin A1c 10.5 H (4.0-6.0) % Uric Acid (3.5-8.5) mg/dL Calcium (8.4-10.2) mg/dL Iron 10 L (65-175) ug/dL TIBC 170 L (228-460) ug/dL Iron Saturation 5.88 L (15.00-50.00) Ferritin 540.0 H (22.0-322.0) ng/mL Lactate Dehydrogenase 271 L (313-618) U/L Crossmatch 05/11/17 05/11/17 05/11/17 Range/Units 07:14 11:52 16:42 RBC (4.30-5.90) m/uL Hgb (13.0-17.5) gm/dL Hct (39.0-53.0) % MCHC (31.0-37.0) g/dL Lymphocytes # (Manual) (1.0-4.8) k/uL Sodium (137-145) mmol/L BUN (9-20) mg/dL Glucose (74-99) mg/dL POC Glucose (mg/dL) 244 H 140 H (75-99) mg/dL Hemoglobin A1c (4.0-6.0) % Uric Acid (3.5-8.5) mg/dL Calcium (8.4-10.2) mg/dL Iron (65-175) ug/dL TIBC (228-460) ug/dL Iron Saturation (15.00-50.00) Ferritin (22.0-322.0) ng/mL Lactate Dehydrogenase (313-618) U/L Crossmatch See Detail 05/11/17 05/12/17 05/12/17 Range/Units 20:35 05:51 05:51 RBC 2.53 L (4.30-5.90) m/uL Hgb 7.1 L (13.0-17.5) gm/dL Hct 23.0 L (39.0-53.0) % MCHC 30.7 L (31.0-37.0) g/dL Lymphocytes # (Manual) 6.24 H (1.0-4.8) k/uL Sodium 136 L (137-145) mmol/L BUN 29 H (9-20) mg/dL Glucose 143 H (74-99) mg/dL POC Glucose (mg/dL) 134 H (75-99) mg/dL Hemoglobin A1c (4.0-6.0) % Uric Acid 2.6 L (3.5-8.5) mg/dL Calcium 8.1 L (8.4-10.2) mg/dL Iron (65-175) ug/dL TIBC (228-460) ug/dL Iron Saturation (15.00-50.00) Ferritin (22.0-322.0) ng/mL Lactate Dehydrogenase (313-618) U/L Crossmatch 05/12/17 Range/Units 06:11 RBC (4.30-5.90) m/uL Hgb (13.0-17.5) gm/dL Hct (39.0-53.0) % MCHC (31.0-37.0) g/dL Lymphocytes # (Manual) (1.0-4.8) k/uL Sodium (137-145) mmol/L BUN (9-20) mg/dL Glucose (74-99) mg/dL POC Glucose (mg/dL) 209 H (75-99) mg/dL Hemoglobin A1c (4.0-6.0) % Uric Acid (3.5-8.5) mg/dL Calcium (8.4-10.2) mg/dL Iron (65-175) ug/dL TIBC (228-460) ug/dL Iron Saturation (15.00-50.00) Ferritin (22.0-322.0) ng/mL Lactate Dehydrogenase (313-618) U/L Crossmatch Microbiology - Last 24 Hours (Table) 05/10/17 20:43 Blood Culture - Preliminary Blood No Growth after 24 hours 05/10/17 20:33 Urine Culture - Preliminary Urine,Catheterized Diabetes panel 05/11/17 05/12/17 Range/Units 05:43 05:51 Sodium 136 L (137-145) mmol/L Potassium 4.1 (3.5-5.1) mmol/L Chloride 102 (98-107) mmol/L Carbon Dioxide 29 (22-30) mmol/L BUN 29 H (9-20) mg/dL Creatinine 0.90 (0.66-1.25) mg/dL Glucose 143 H (74-99) mg/dL Hemoglobin A1c 10.5 H (4.0-6.0) % Calcium 8.1 L (8.4-10.2) mg/dL Calcium panel 05/12/17 Range/Units 05:51 Calcium 8.1 L (8.4-10.2) mg/dL Pituitary panel 05/12/17 Range/Units 05:51 Sodium 136 L (137-145) mmol/L Potassium 4.1 (3.5-5.1) mmol/L Chloride 102 (98-107) mmol/L Carbon Dioxide 29 (22-30) mmol/L BUN 29 H (9-20) mg/dL Creatinine 0.90 (0.66-1.25) mg/dL Glucose 143 H (74-99) mg/dL Calcium 8.1 L (8.4-10.2) mg/dL Adrenal panel 05/12/17 Range/Units 05:51 Sodium 136 L (137-145) mmol/L Potassium 4.1 (3.5-5.1) mmol/L Chloride 102 (98-107) mmol/L Carbon Dioxide 29 (22-30) mmol/L BUN 29 H (9-20) mg/dL Creatinine 0.90 (0.66-1.25) mg/dL Glucose 143 H (74-99) mg/dL Calcium 8.1 L (8.4-10.2) mg/dL Assessment and Plan (1) Right groin pain Narrative/Plan: The source of the patient's intermittent groin pain is not clear. The patient has no evidence of hernia, hydrocele, testicular or epididymal abnormality. He appears to be emptying his bladder adequately at this time. Unfortunately the patient's mental status does not allow optimal characterization of the pain that he apparently experienced one or 2 days ago. At least at this time I do not feel that further urologic evaluation is necessary. Current Visit: Yes Status: Acute Code(s): R10.31 - RIGHT LOWER QUADRANT PAIN SNOMED Code(s): 821133277
[2017-05-12] MEDS: MULTIVITAMINS, THERA 1 EACH TAB PO SCH (12:02)
[2017-05-12] MEDS: FOLIC ACID 1 MG TAB PO SCH (12:02)
[2017-05-12] MEDS: THIAMINE 100 MG TAB PO SCH (12:02)
[2017-05-12 12:11] LABS: Glucose,Whole Blood 223 mg/dL (75-99)
[2017-05-12 13:24] VITALS: BMI 18.5
[2017-05-12] MEDS: SODIUM CHLORIDE 0.9% 1,000 ML IV SCH (15:21)
--- NOTE | 2017-05-12 15:51 | PN ---
PROGRESS NOTE Mr. Luis is an 87-year-old male with a history of chronic lymphocytic leukemia, who presented with symptoms of progressive fatigue. He was seen for evaluation of peripheral edema. He is more awake and alert today. He denies any chest pain. His breathing has been stable. He received transfusion yesterday. He continues to be at this time on Sinemet, finasteride, glipizide, lisinopril 10 mg daily, and tamsulosin. He had an echocardiogram yesterday that showed a preserved left ventricular size and systolic function with no segmental wall motion abnormality and no significant valvular disease. PHYSICAL EXAMINATION: Blood pressure 139/60 with a heart in the 70s. LUNGS: Clear. HEART: Regular rate and rhythm, S1, S2. No S3 with a systolic murmur. No diastolic murmur. ABDOMEN: Soft, nontender. EXTREMITIES: No edema. LAB DATA: Revealed a hemoglobin of 7.1. BUN and creatinine 29 and 0.9. IMPRESSION: 1. Anemia related to chronic lymphocytic leukemia. 2. History of hypertension. 3. Mild peripheral edema with no evidence of congestive heart failure. 4. History of diabetes. RECOMMENDATION: From the cardiac standpoint, he is stable. I see no evidence of active cardiac abnormality at this time. No further cardiac workup will be needed. We will see him on an as-needed basis. Please feel free to call us for any questions. MMODL / IJN: [id number] /
[2017-05-12 17:14] LABS: Glucose,Whole Blood 227 mg/dL (75-99)
--- NOTE | 2017-05-12 17:26 | P.PN ---
Subjective Progress Note Date: 05/12/17 This patient is a 87-year-old male who was admitted to hospital with symptoms of increased unresponsiveness and Parkinson's disease. Patient was seen in neurology consultation yesterday and showed some improvement in his mental status. CAT scan of the brain revealed possible normal pressure hydrocephalus. Review of the actual CAT scan films reveals only moderate degree of ventriculomegaly. We did discuss the CAT scan findings at length with the patient's daughter who is power of managing attorney yesterday in detail. We have recommended a lumbar puncture as a therapeutic To see if there is any improvement in his overall condition. Once again CAT scan is more in favor of ventriculomegaly secondary to cortical atrophy and dementia. He continues to have mild symptoms of parkinsonism. He was started on low-dose Sinemet yesterday one tablet 3 times a day. Patient was seen by urology as he was complaining of groin pain. Dr. Murray did not find source of this patient's intermittent groin pain at this time. No evidence for hernia, hydrocele, testicular up and diagonal abnormalities. He is emptying his bladder adequately. He does not have evidence of urinary incontinence at this time. We will continue close neurological follow-up of this patient during this admission. Patient does seem to be slightly more awake and alert today as compared to yesterday. We will consult Dr. Rose for further evaluation for subacute rehab placement for this patient. He is to be scheduled for lumbar puncture by anesthesia hopefully to be done tomorrow to see if any changes in terms of his mental status and NPH. He was seen by urology today and we will await any further recommendations from them. We will have him continue on current low-dose of Sinemet. His daughters were not at bedside today to discuss his findings. We will try to update them tomorrow on rounds. We will have him work with physical therapy and most likely he will require subacute rehab placement at the time of discharge. Objective - Vital Signs Vital signs: Vital Signs Temp 98.1 F 05/12/17 11:59 Pulse 77 05/12/17 11:59 Resp 18 05/12/17 11:59 BP 139/65 05/12/17 11:59 Pulse Ox 99 05/12/17 11:59 Intake & Output 05/11/17 05/12/17 05/12/17 18:59 06:59 18:59 Intake Total 770 620 Output Total 550 700 200 Balance 220 -700 420 Weight 65.5 kg 65.5 kg Intake: IV 220 Invasive Line 1 10 Invasive Line 2 10 Sodium Chloride 0.9% 1, 200 000 ml @ 100 mls/hr IV . Q10H ONE Rx#:[id number] Oral 240 620 Blood Product 310 Rc As-1 Unit 310 [id number] Output: Urine 550 700 200 Straight 300 Other: Voiding Method Diaper Urinal Urinal Diaper Diaper # Voids 0 1 # Bowel Movements 1 - Exam Physical examination: PHYSICAL EXAMINATION: Patient is resting comfortably in bed. VITAL SIGNS: Blood pressure is [139/65]. Heart rate is [77]. Respiration is [16] . Temperature is [98.1]. HEENT: Head is atraumatic, neck is supple, there were no carotid bruits. CHEST: Lungs are clear to auscultation and percussion. CARDIAC: S1, S2 normal rate and rhythm. There is no murmur. ABDOMEN: Soft and nontender. Bowel sounds are present. EXTREMITIES: There is no pedal edema. Peripheral pulses are present. Neurological examination: Patient is more awake and alert today. He is oriented 2. Speech is slow but fluent. Cranial nerves II through XII are grossly intact motor examination reveals generalized weakness. Deep tendon reflexes are 1+ and symmetric. Plantar responses flexor bilaterally. - Labs CBC & Chem 7: 05/12/17 05:51 05/12/17 05:51 Labs: Abnormal Lab Results - Last 24 Hours (Table) 05/11/17 05/11/17 05/11/17 Range/Units 05:43 05:43 16:42 RBC (4.30-5.90) m/uL Hgb (13.0-17.5) gm/dL Hct (39.0-53.0) % MCHC (31.0-37.0) g/dL Lymphocytes # (Manual) (1.0-4.8) k/uL Sodium (137-145) mmol/L BUN (9-20) mg/dL Glucose (74-99) mg/dL POC Glucose (mg/dL) 140 H (75-99) mg/dL Hemoglobin A1c 10.5 H (4.0-6.0) % Uric Acid (3.5-8.5) mg/dL Calcium (8.4-10.2) mg/dL Iron 10 L (65-175) ug/dL TIBC 170 L (228-460) ug/dL Iron Saturation 5.88 L (15.00-50.00) Ferritin 540.0 H (22.0-322.0) ng/mL 05/11/17 05/12/17 05/12/17 Range/Units 20:35 05:51 05:51 RBC 2.53 L (4.30-5.90) m/uL Hgb 7.1 L (13.0-17.5) gm/dL Hct 23.0 L (39.0-53.0) % MCHC 30.7 L (31.0-37.0) g/dL Lymphocytes # (Manual) 6.24 H (1.0-4.8) k/uL Sodium 136 L (137-145) mmol/L BUN 29 H (9-20) mg/dL Glucose 143 H (74-99) mg/dL POC Glucose (mg/dL) 134 H (75-99) mg/dL Hemoglobin A1c (4.0-6.0) % Uric Acid 2.6 L (3.5-8.5) mg/dL Calcium 8.1 L (8.4-10.2) mg/dL Iron (65-175) ug/dL TIBC (228-460) ug/dL Iron Saturation (15.00-50.00) Ferritin (22.0-322.0) ng/mL 05/12/17 05/12/17 Range/Units 06:11 11:50 RBC (4.30-5.90) m/uL Hgb (13.0-17.5) gm/dL Hct (39.0-53.0) % MCHC (31.0-37.0) g/dL Lymphocytes # (Manual) (1.0-4.8) k/uL Sodium (137-145) mmol/L BUN (9-20) mg/dL Glucose (74-99) mg/dL POC Glucose (mg/dL) 209 H 223 H (75-99) mg/dL Hemoglobin A1c (4.0-6.0) % Uric Acid (3.5-8.5) mg/dL Calcium (8.4-10.2) mg/dL Iron (65-175) ug/dL TIBC (228-460) ug/dL Iron Saturation (15.00-50.00) Ferritin (22.0-322.0) ng/mL Microbiology - Last 24 Hours (Table) 05/10/17 20:33 Urine Culture - Final Urine,Catheterized 05/10/17 20:43 Blood Culture - Preliminary Blood No Growth after 24 hours Assessment and Plan (1) Parkinsons disease Current Visit: Yes Status: Acute Code(s): G20 - PARKINSON'S DISEASE SNOMED Code(s): 92959668 (2) Acute encephalopathy Current Visit: Yes Status: Acute Code(s): G93.40 - ENCEPHALOPATHY, UNSPECIFIED SNOMED Code(s): 6957708 (3) Normal pressure hydrocephalus Current Visit: Yes Status: Acute Code(s): G91.2 - (IDIOPATHIC) NORMAL PRESSURE HYDROCEPHALUS SNOMED Code(s): 15383603 (4) Dementia Current Visit: Yes Status: Acute Code(s): F03.90 - UNSPECIFIED DEMENTIA WITHOUT BEHAVIORAL DISTURBANCE SNOMED Code(s): 72017152 Plan: This patient is a 87-year-old male being evaluated for decreased responsiveness and parkinsonism. He was started on low-dose Sinemet yesterday and seems to show slight improvement in his overall mental status and general well-being. He is being scheduled for lumbar puncture for further assessment and evaluation for NPH. Review of his CAT scan reveals only moderate degree of ventriculomegaly and does not suggest highly NPH. We have started him on low dose Sinemet which seems to be of some benefit. We will continue working with physical therapy for him. Will consult Dr. Rose for possible inpatient rehab placement. He does have history of underlying dementia which remain stable at this time. His overall prognosis at this time remains guarded.
[2017-05-12 20:39] LABS: Glucose,Whole Blood 192 mg/dL (75-99)
[2017-05-12] MEDS: POTASSIUM CHLORIDE ER 10 MEQ TAB.ER.PRT PO SCH (21:36)
[2017-05-13 05:04] LABS: Basophils # (A) 0.1 k/uL (0-0.2); Basophils % (A) 1 %; Eosinophils % (A) 0 %; HCT 22.2 % (39.0-53.0); Hypochromasia Slight; Lymphocytes % (A) 68 %; MCH 28.1 pg (25.0-35.0); MCHC 30.7 g/dL (31.0-37.0); MCV 91.5 fL (80.0-100.0); Mean Platelet Volume 7.3; Monocytes # (A) 0.1 k/uL (0-1.0); Monocytes % (A) 1 %; Neutrophils # (A) 3.5 k/uL (1.3-7.7); Neutrophils % (A) 28 %; Platelet Count 194 k/uL (150-450); RBC 2.43 m/uL (4.30-5.90); RDW 12.8 % (11.5-15.5); WBC 12.4 k/uL (3.8-10.6)
[2017-05-13 05:06] LABS: Anion Gap 7 mmol/L; Blood Urea Nitrogen 26 mg/dL (9-20); Calcium 7.8 mg/dL (8.4-10.2); Carbon Dioxide 29 mmol/L (22-30); Chloride 102 mmol/L (98-107); Glucose 120 mg/dL (74-99); Potassium 4.2 mmol/L (3.5-5.1); Sodium 138 mmol/L (137-145)
[2017-05-13 05:13] LABS: HGB 6.8 gm/dL (13.0-17.5); Lymphocytes # (A) 8.4 k/uL (1.0-4.8)
[2017-05-13 05:52] LABS: Glucose,Whole Blood 130 mg/dL (75-99)
[2017-05-13] MEDS: INSULIN ASPART 100 UNIT/ML 1 ML 10 ML VIAL SQ SCH ×4 (05:55→21:16)
[2017-05-13] MEDS: glipiZIDE 10 MG TAB PO SCH (06:39)
[2017-05-13] MEDS ORDERED: FUROSEMIDE 10 MG/ML 2 ML VIAL IV ONE (07:08)
--- NOTE | 2017-05-13 08:08 | P.CONS ---
History of Present Illness - Chief Complaint Medical Debility - History of Present Illness Admitted 05/10 acute MS change. Negative test Dopler, Pelvis XR, CXR, HCT. PT, OT Rxd. Seen by Terri Estrada Alsawah. Note severe anemia. Previous function: lives with unemploeyd daughter who does advanced ADLs. Reports independent with standing shower, gait without device. Review of Systems Negative 12 pioint ROW except for noted confusion. Past Medical History Past Medical History: Coronary Artery Disease (CAD), Diabetes Mellitus, GERD/ Reflux, Hyperlipidemia, Hypertension, Osteoarthritis (OA), Prostate Disorder, Skin Disorder Additional Past Medical History / Comment(s): CLL, early stages of Parkinsons, basal cell carcinoma History of Any Multi-Drug Resistant Organisms: None Reported Past Surgical History: Appendectomy, Heart Catheterization With Stent Additional Past Surgical History / Comment(s): cataract Past Anesthesia/Blood Transfusion Reactions: No Reported Reaction Date of Last Stent Placement:: 1994 Past Psychological History: No Psychological Hx Reported, Anxiety Smoking Status: Never smoker Past Alcohol Use History: None Reported Past Drug Use History: None Reported - Past Family History Mother Family Medical History: CVA/TIA Additional Family Medical History / Comment(s): Parkinsons Father Family Medical History: Coronary Artery Disease (CAD) Medications and Allergies Home Medications Medication Instructions Recorded Confirmed Type Atorvastatin [Lipitor] 20 mg PO DAILY 05/10/17 05/10/17 History Finasteride [Proscar] 5 mg PO DAILY 05/10/17 05/10/17 History Furosemide [Lasix] 20 mg PO Q48H 05/10/17 05/10/17 History Lisinopril [Prinivil] 10 mg PO DAILY 05/10/17 05/10/17 History Potassium Chloride ER [K-Dur 10] 10 meq PO Q48H 05/10/17 05/10/17 History glipiZIDE [Glucotrol] 10 mg PO AC-BRKFST 05/10/17 05/10/17 History Allergies Allergy/AdvReac Type Severity Reaction Status Date / Time No Known Allergies Allergy Verified 05/10/17 20:26 Physical Exam Vitals: Vital Signs Temp Pulse Pulse Resp BP BP Pulse Ox 05/13/17 07:45 97.8 F 89 16 138/66 96 05/13/17 07:15 98.3 F 87 18 136/60 100 05/13/17 07:05 97.2 F L 86 16 143/74 98 05/13/17 03:25 98.8 F 78 18 124/60 96 05/13/17 00:00 98.0 F 86 18 171/77 97 05/12/17 20:00 98.9 F 90 18 166/69 95 05/12/17 16:00 98.1 F 81 16 159/67 96 05/12/17 11:59 98.1 F 77 16 139/65 99 Intake and Output 05/12/17 05/13/17 05/13/17 22:59 06:59 14:59 Intake Total 240 0 Output Total 100 100 Balance 140 -100 0 Intake: Oral 240 Blood Product 0 Rc As-1 Unit 0 [id number] Output: Urine 100 100 Other: # Voids 1 Weight 67 kg - Constitutional General appearance: cooperative, thin - EENT Eyes: EOMI ENT: other (hearing WNL.) - Neck Neck: normal ROM Carotids: bilateral: upstroke normal - Respiratory Respiratory: bilateral: CTA (symmetric) - Cardiovascular Rhythm: regular Heart sounds: normal: S1, S2 - Gastrointestinal General gastrointestinal: no organomegaly, soft, no tenderness - Integumentary Integumentary: normal, normal turgor - Neurologic Neurologic: CNII-XII intact (actively moves all limbs.) Results CBC & Chem 7: 05/13/17 04:29 05/13/17 04:29 Labs: Abnormal Lab Results - Last 24 Hours (Table) 05/11/17 05/11/17 05/12/17 Range/Units 05:43 07:14 05:51 WBC (3.8-10.6) k/uL RBC (4.30-5.90) m/uL Hgb (13.0-17.5) gm/dL Hct (39.0-53.0) % MCHC (31.0-37.0) g/dL Lymphocytes # (1.0-4.8) k/uL Haptoglobin 336.0 H (31.2-198.0) mg/dL BUN (9-20) mg/dL Glucose (74-99) mg/dL POC Glucose (mg/dL) (75-99) mg/dL Calcium (8.4-10.2) mg/dL RBC Folate 1,150 H (280 - 791) ng/mL Crossmatch See Detail 05/12/17 05/12/17 05/12/17 Range/Units 11:50 16:27 20:36 WBC (3.8-10.6) k/uL RBC (4.30-5.90) m/uL Hgb (13.0-17.5) gm/dL Hct (39.0-53.0) % MCHC (31.0-37.0) g/dL Lymphocytes # (1.0-4.8) k/uL Haptoglobin (31.2-198.0) mg/dL BUN (9-20) mg/dL Glucose (74-99) mg/dL POC Glucose (mg/dL) 223 H 227 H 192 H (75-99) mg/dL Calcium (8.4-10.2) mg/dL RBC Folate (280 - 791) ng/mL Crossmatch 05/13/17 05/13/17 05/13/17 Range/Units 04:29 04:29 05:45 WBC 12.4 H (3.8-10.6) k/uL RBC 2.43 L (4.30-5.90) m/uL Hgb 6.8 L* (13.0-17.5) gm/dL Hct 22.2 L (39.0-53.0) % MCHC 30.7 L (31.0-37.0) g/dL Lymphocytes # 8.4 H (1.0-4.8) k/uL Haptoglobin (31.2-198.0) mg/dL BUN 26 H (9-20) mg/dL Glucose 120 H (74-99) mg/dL POC Glucose (mg/dL) 130 H (75-99) mg/dL Calcium 7.8 L (8.4-10.2) mg/dL RBC Folate (280 - 791) ng/mL Crossmatch Microbiology - Last 24 Hours (Table) 05/10/17 20:43 Blood Culture - Preliminary Blood No Growth after 48 hours 05/10/17 20:33 Urine Culture - Final Urine,Catheterized Assessment and Plan (1) Altered mental status Current Visit: Yes Status: Acute Code(s): R41.82 - ALTERED MENTAL STATUS, UNSPECIFIED SNOMED Code(s): 784579177 (2) Normal pressure hydrocephalus Current Visit: Yes Status: Acute Code(s): G91.2 - (IDIOPATHIC) NORMAL PRESSURE HYDROCEPHALUS SNOMED Code(s): 20253022 Plan: Impression: 1. Gait Disturbnce 2. NPH 3. Parkinson. Plan: Await PT,OT. Add [employer].
[2017-05-13] MEDS: HEPARIN SODIUM,PORCINE 5,000 UNIT/ML 1 ML VIAL SQ SCH ×2 (08:39→19:56)
[2017-05-13] MEDS: ATORVASTATIN 20 MG TAB PO SCH (08:44)
[2017-05-13] MEDS: FINASTERIDE 5 MG TAB PO SCH (08:44)
[2017-05-13] MEDS: CARBIDOPA-LEVODOPA 10-100 MG 1 EACH TAB PO SCH ×3 (08:44→21:16)
[2017-05-13] MEDS: MULTIVITAMINS, THERA 1 EACH TAB PO SCH (08:44)
[2017-05-13] MEDS: LISINOPRIL 10 MG TAB PO SCH (08:44)
[2017-05-13] MEDS: THIAMINE 100 MG TAB PO SCH (08:44)
[2017-05-13] MEDS: TAMSULOSIN 0.4 MG CAP.ER.24H PO SCH (08:44)
[2017-05-13] MEDS: FOLIC ACID 1 MG TAB PO SCH (08:44)
--- NOTE | 2017-05-13 10:19 | PN ---
PROGRESS NOTE DATE OF SERVICE: 05/12/2017. INTERVAL HISTORY: This 87-year-old gentleman who was admitted with change in mental status and possibly TIA or stroke is being closely monitored at this time. The patient is seen by Neurological Surgery as well as review of the Dr. Huff. The white count is normal at this time. Sensorium is definitely improving at this time. The cultures are so far negative. Hemoglobin 7.1. Carotid Doppler is showing no hemodynamically significant stenosis. Dr. Monsalve is also following the patient closely. PAST MEDICAL HISTORY: Reviewed. REVIEW OF SYSTEMS: Could not be taken, the patient is confused. The sensorium is definitely improving. CURRENT MEDICATIONS: Reviewed include: 1. Tylenol 650 every 6 p.r.n. 2. Lipitor 20 mg daily. 3. Sinemet 10/100 one p.o. t.i.d. 4. Proscar 5 mg. 5. Folic acid 1 mg daily. 6. Glipizide 10 mg b.i.d. 7. NovoLog system. 8. Multivitamin. 9. K-Dur. 10.Flomax. PHYSICAL EXAM: Patient is arousable but confused. Pulse 81, blood pressure 159/69, respirations 16, temperature 98.1, pulse ox 96% on room air. HEENT: Conjunctivae pale. Oral mucosa moist. NECK: No jugular venous distention. No lymph node enlargement. CARDIOVASCULAR: S1 and S2. LUNGS: Breath sounds diminished at the bases. Scattered rhonchi and crackles. ABDOMEN: Soft, nontender. LEGS: No edema. NERVOUS SYSTEM: Diffusely weak. LABS: WBC 10.2, hemoglobin 7.1, glucose 143, 209, sodium 136. ASSESSMENT: 1. Change in mental status with weakness with possible acute transient ischemic attack or stroke. 2. Rule out sepsis. 3. Parkinsonism, acute on chronic. 4. Gait dysfunction. 5. Right leg edema without any evidence of congestive heart failure. 6. Increased WBC, possibly reactive, improved. 7. Anemia, normocytic. 8. Hyponatremia. 9. History of hydrocele/spermatocele on the right side, status post aspiration. 10.Diabetes type 2. 11.Dementia. 12.Hypertension. 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 RECOMMENDATIONS: This 87-year-old gentleman who presented with multiple complications, we will monitor the patient closely, continue the current management and treatment. Otherwise as mentioned earlier the cultures are negative so far. I would recommend continue PT and OT evaluation. Follow closely with multiple consultants. Dr. Rose has been consulted. CSF studies have been ordered. We will continue to monitor. Discussed with Dr. Huff. Further recommendation to follow. MMODL / IJN: [id number] /
--- NOTE | 2017-05-13 10:44 | P.PCN ---
Date of Procedure: 05/13/17 Surgeon: Imer Ruvalcaba Pathology: none sent Condition: stable Disposition: floor Description of Procedure: PREOPERATIVE DIAGNOSIS: 1-rule out normal pressure hydrocephalus POSTOPERATIVE DIAGNOSIS: same PROCEDURE 1. Diagnostic lumbar puncture ANESTHESIA: Local with 1% lidocaine EBL: Minimal PROCEDURE INDICATION: The patient admitted as inpatient with concern for normal pressure hydrocephalus, who presents for diagnostic LP as ordered by Dr. Huff. No use of blood thinners at home and subcutaneous heparin held this morning. PROCEDURE DESCRIPTION / TECHNIQUE: The patient was seen and identified in the preoperative area. Risks, benefits, complications, and alternatives were discussed with the patient, including but not limited to bleeding, infection, nerve damage, allergic reactions to medications, and spinal headache. The patient agreed to proceed with the procedure and signed the consent after all questions were answered. Vital signs were stable. Patient was taken to the procedure room and time out was completed to confirm patient position, procedure, area of pain, and allergies. The patient was placed in the sitting position on procedure table with help from nursing staff. The lumbosacral area was prepped and draped in the usual sterile fashion. Vital signs were closely monitored during the procedure. After localization with 1% lidocaine, a 20-gauge 3.5-inch spinal needle was placed in the L3-L4 interspace on the first attempt. Stylet was removed and clear cerebrospinal fluid was obtained. Opening pressure was approximately 27 cm H20 and closing pressure approximately 20 cm H2O. A total of 16 ml CSF was removed and put into four tubes and sent for laboratory testing per neurology. COMPLICATIONS: None COMMENTS: None DISPOSITION / PLANS: The patient was placed in a supine position and transferred to the recovery area in a stable condition for observation. There was no evidence of lower extremity motor or sensory deficit after the procedure. Patient was discharged from the recovery room after meeting discharge criteria. Home discharge instructions were given to the patient by the staff. The patient was reexamined prior to discharge and there were no issues. The patient will return to the care of the hospitalists. Recommend increasing IV fluid rate and having patient lie flat for several hours if possible to avert potential postdural puncture headache.
[2017-05-13 12:10] LABS: Glucose,Whole Blood 120 mg/dL (75-99)
[2017-05-13] MEDS: SODIUM CHLORIDE 0.9% 1,000 ML IV SCH (14:16)
[2017-05-13 15:46] LABS: Appearance,CSF Clear; CSF Tube Number 4; CSF Tube Volume 4; Nucleated Cells, CSF 0 u/L (0-5); Red Blood Cell,CSF 0 u/L (0-10)
[2017-05-13 17:24] LABS: Glucose,Whole Blood 163 mg/dL (75-99)
--- NOTE | 2017-05-13 19:35 | P.PN ---
Subjective Progress Note Date: 05/13/17 This patient is a 87-year-old male who was admitted to hospital with symptoms of increased unresponsiveness and Parkinson's disease. Patient was seen in neurology consultation yesterday and showed some improvement in his mental status. CAT scan of the brain revealed possible normal pressure hydrocephalus. Review of the actual CAT scan films reveals only moderate degree of ventriculomegaly. We did discuss the CAT scan findings at length with the patient's daughter who is power of energy attorney yesterday in detail. We have recommended a lumbar puncture as a therapeutic To see if there is any improvement in his overall condition. Once again CAT scan is more in favor of ventriculomegaly secondary to cortical atrophy and dementia. He continues to have mild symptoms of parkinsonism. He was started on low-dose Sinemet yesterday 10/ one tablet 3 times a day. Patient was seen by urology as he was complaining of groin pain. Dr. Murray did not find source of this patient's intermittent groin pain at this time. No evidence for hernia, hydrocele, testicular up and diagonal abnormalities. He is emptying his bladder adequately. He does not have evidence of urinary incontinence at this time. We will continue close neurological follow-up of this patient during this admission. Patient does seem to be slightly more awake and alert today as compared to yesterday. We will consult Dr. Rose for further evaluation for subacute rehab placement for this patient. He is to be scheduled for lumbar puncture by anesthesia hopefully to be done today to see if any changes in terms of his mental status and NPH. Patient did complete lumbar puncture today. We will need to see how the patient responds to the therapeutic. Case was discussed at length today with the patient's daughter Alyssa over the phone. She was updated on all of his test results. He is being considered for possible inpatient rehab placement at [facility]. We will await further recommendations from Dr. Ascencio. We will need to evaluate his spinal fluid results tomorrow and may consider further options. His daughter Alyssa this at this time has a 10 to proceed with more aggressive evaluation for NPH. We will continue to monitor his condition closely. He is to continue on his current dose of Sinemet. He was seen by urology today and we will await any further recommendations from them. We will have him continue on current low- dose of Sinemet. His daughters were not at bedside today to discuss his findings. We will try to update them tomorrow on rounds. We will have him work with physical therapy and most likely he will require subacute rehab placement at the time of discharge. Objective - Vital Signs Vital signs: Vital Signs Temp 97.8 F 05/13/17 11:18 Pulse 80 05/13/17 11:18 Resp 16 05/13/17 11:18 BP 148/69 05/13/17 11:18 Pulse Ox 97 05/13/17 11:18 Intake & Output 05/12/17 05/13/17 05/13/17 18:59 06:59 18:59 Intake Total 860 430 Output Total 300 100 900 Balance 560 -100 -470 Weight 65.5 kg 67 kg Intake: Oral 860 120 Blood Product 310 Rc As-1 Unit 310 [id number] Output: Urine 300 100 900 Other: Voiding Method Urinal Urinal Diaper Diaper # Voids 1 2 # Bowel Movements 1 1 - Exam Physical examination: PHYSICAL EXAMINATION: Patient is resting comfortably in bed. VITAL SIGNS: Blood pressure is [148/69]. Heart rate is [80]. Respiration is [16] . Temperature is [97.8]. HEENT: Head is atraumatic, neck is supple, there were no carotid bruits. CHEST: Lungs are clear to auscultation and percussion. CARDIAC: S1, S2 normal rate and rhythm. There is no murmur. ABDOMEN: Soft and nontender. Bowel sounds are present. EXTREMITIES: There is no pedal edema. Peripheral pulses are present. Neurological examination: Patient is more awake and alert today. He is oriented 2. Speech is slow but fluent. Cranial nerves II through XII are grossly intact motor examination reveals generalized weakness. Deep tendon reflexes are 1+ and symmetric. Plantar responses flexor bilaterally. - Labs CBC & Chem 7: 05/13/17 04:29 05/13/17 04:29 Labs: Abnormal Lab Results - Last 24 Hours (Table) 05/11/17 05/11/17 05/12/17 Range/Units 05:43 07:14 05:51 WBC (3.8-10.6) k/uL RBC (4.30-5.90) m/uL Hgb (13.0-17.5) gm/dL Hct (39.0-53.0) % MCHC (31.0-37.0) g/dL Lymphocytes # (1.0-4.8) k/uL Haptoglobin 336.0 H (31.2-198.0) mg/dL BUN (9-20) mg/dL Glucose (74-99) mg/dL POC Glucose (mg/dL) (75-99) mg/dL Calcium (8.4-10.2) mg/dL RBC Folate 1,150 H (280 - 791) ng/mL Crossmatch See Detail 05/12/17 05/13/17 05/13/17 Range/Units 20:36 04:29 04:29 WBC 12.4 H (3.8-10.6) k/uL RBC 2.43 L (4.30-5.90) m/uL Hgb 6.8 L* (13.0-17.5) gm/dL Hct 22.2 L (39.0-53.0) % MCHC 30.7 L (31.0-37.0) g/dL Lymphocytes # 8.4 H (1.0-4.8) k/uL Haptoglobin (31.2-198.0) mg/dL BUN 26 H (9-20) mg/dL Glucose 120 H (74-99) mg/dL POC Glucose (mg/dL) 192 H (75-99) mg/dL Calcium 7.8 L (8.4-10.2) mg/dL RBC Folate (280 - 791) ng/mL Crossmatch 05/13/17 05/13/17 05/13/17 Range/Units 05:45 12:03 17:00 WBC (3.8-10.6) k/uL RBC (4.30-5.90) m/uL Hgb (13.0-17.5) gm/dL Hct (39.0-53.0) % MCHC (31.0-37.0) g/dL Lymphocytes # (1.0-4.8) k/uL Haptoglobin (31.2-198.0) mg/dL BUN (9-20) mg/dL Glucose (74-99) mg/dL POC Glucose (mg/dL) 130 H 120 H 163 H (75-99) mg/dL Calcium (8.4-10.2) mg/dL RBC Folate (280 - 791) ng/mL Crossmatch Microbiology - Last 24 Hours (Table) 05/10/17 20:43 Blood Culture - Preliminary Blood No Growth after 48 hours 05/10/17 20:33 Urine Culture - Final Urine,Catheterized Assessment and Plan (1) Parkinsons disease Current Visit: Yes Status: Acute Code(s): G20 - PARKINSON'S DISEASE SNOMED Code(s): 69669697 (2) Acute encephalopathy Current Visit: Yes Status: Acute Code(s): G93.40 - ENCEPHALOPATHY, UNSPECIFIED SNOMED Code(s): 2385310 (3) Normal pressure hydrocephalus Current Visit: Yes Status: Acute Code(s): G91.2 - (IDIOPATHIC) NORMAL PRESSURE HYDROCEPHALUS SNOMED Code(s): 64558126 (4) Dementia Current Visit: Yes Status: Acute Code(s): F03.90 - UNSPECIFIED DEMENTIA WITHOUT BEHAVIORAL DISTURBANCE SNOMED Code(s): 33202917 Plan: This patient is a 87-year-old male with multiple complex medical issues. He was admitted to the hospital due to decline in his general medical condition over the past week. He was sent for computed tomography scan of the brain on admission which reveals question of ventriculomegaly versus NPH. He underwent a lumbar puncture today for further evaluation. We will need to evaluate those test results. Patient was started on low dose Sinemet as he has a history of underlying parkinsonism. He was seen by Dr. Rose today for possible inpatient rehab placement as well. Most likely he will require rehab at the time of discharge. We will await further recommendations from discharge planning. Patient is able to answer some simple questions today. He still remains weak. This may be a combination of this complex multiple medical issues. We will continue to follow with Dr. Manning in terms of further treatment options. Case was discussed at length today with his daughter group over the phone. She was updated on all of his current test results. We will continue to monitor his progress closely during this admission.
[2017-05-13 20:55] LABS: Glucose,Whole Blood 293 mg/dL (75-99)
[2017-05-13 21:11] LABS: Glucose,CSF 73 mg/dL (40-70); Total Protein,CSF 40 mg/dL (12-60)
[2017-05-13 21:40] LABS: Appearance,CSF Clear; CSF Tube Number 1; CSF Tube Volume 4; Nucleated Cells, CSF 0 u/L (0-5)
[2017-05-13 21:41] LABS: Red Blood Cell,CSF 0 u/L (0-10)
--- NOTE | 2017-05-13 22:14 | P.PN ---
Subjective Progress Note Date: 05/13/17 Principal diagnosis: AMS Pt seen in follow up, he was confused, he did not know what I was there to talk to him about, he thought he was at home in bed. He was pleasant. Objective - Vital Signs Vital signs: Vital Signs Temp 98.7 F 05/13/17 20:00 Pulse 86 05/13/17 20:00 Resp 18 05/13/17 20:00 BP 113/50 05/13/17 20:00 Pulse Ox 97 05/13/17 20:00 Intake & Output 05/13/17 05/13/17 05/14/17 06:59 18:59 06:59 Intake Total 430 Output Total 100 900 Balance -100 -470 Weight 67 kg Intake: Oral 120 Blood Product 310 Rc As-1 Unit 310 [id number] Output: Urine 100 900 Other: Voiding Method Urinal Diaper # Voids 1 300 # Bowel Movements 1 - Constitutional General appearance: Present: cooperative, thin - Respiratory Respiratory: bilateral: CTA (weak inspiratory effort) - Cardiovascular Heart sounds: normal: S1, S2 - Gastrointestinal General gastrointestinal: Present: normal bowel sounds, soft - Musculoskeletal Musculoskeletal: Present: generalized weakness - Psychiatric Psychiatric Comment(s): alert only Psychiatric: Absent: appropriate affect, intact judgment & insight - Labs CBC & Chem 7: 05/13/17 04:29 05/13/17 04:29 Labs: Abnormal Lab Results - Last 24 Hours (Table) 05/11/17 05/11/17 05/12/17 Range/Units 05:43 07:14 05:51 WBC (3.8-10.6) k/uL RBC (4.30-5.90) m/uL Hgb (13.0-17.5) gm/dL Hct (39.0-53.0) % MCHC (31.0-37.0) g/dL Lymphocytes # (1.0-4.8) k/uL Haptoglobin 336.0 H (31.2-198.0) mg/dL BUN (9-20) mg/dL Glucose (74-99) mg/dL POC Glucose (mg/dL) (75-99) mg/dL Calcium (8.4-10.2) mg/dL RBC Folate 1,150 H (280 - 791) ng/mL CSF Glucose (40-70) mg/dL Crossmatch See Detail 05/13/17 05/13/17 05/13/17 Range/Units 04:29 04:29 05:45 WBC 12.4 H (3.8-10.6) k/uL RBC 2.43 L (4.30-5.90) m/uL Hgb 6.8 L* (13.0-17.5) gm/dL Hct 22.2 L (39.0-53.0) % MCHC 30.7 L (31.0-37.0) g/dL Lymphocytes # 8.4 H (1.0-4.8) k/uL Haptoglobin (31.2-198.0) mg/dL BUN 26 H (9-20) mg/dL Glucose 120 H (74-99) mg/dL POC Glucose (mg/dL) 130 H (75-99) mg/dL Calcium 7.8 L (8.4-10.2) mg/dL RBC Folate (280 - 791) ng/mL CSF Glucose (40-70) mg/dL Crossmatch 05/13/17 05/13/17 05/13/17 Range/Units 12:03 17:00 18:55 WBC (3.8-10.6) k/uL RBC (4.30-5.90) m/uL Hgb (13.0-17.5) gm/dL Hct (39.0-53.0) % MCHC (31.0-37.0) g/dL Lymphocytes # (1.0-4.8) k/uL Haptoglobin (31.2-198.0) mg/dL BUN (9-20) mg/dL Glucose (74-99) mg/dL POC Glucose (mg/dL) 120 H 163 H (75-99) mg/dL Calcium (8.4-10.2) mg/dL RBC Folate (280 - 791) ng/mL CSF Glucose 73 H (40-70) mg/dL Crossmatch 05/13/17 Range/Units 20:52 WBC (3.8-10.6) k/uL RBC (4.30-5.90) m/uL Hgb (13.0-17.5) gm/dL Hct (39.0-53.0) % MCHC (31.0-37.0) g/dL Lymphocytes # (1.0-4.8) k/uL Haptoglobin (31.2-198.0) mg/dL BUN (9-20) mg/dL Glucose (74-99) mg/dL POC Glucose (mg/dL) 293 H (75-99) mg/dL Calcium (8.4-10.2) mg/dL RBC Folate (280 - 791) ng/mL CSF Glucose (40-70) mg/dL Crossmatch Microbiology - Last 24 Hours (Table) 05/10/17 20:43 Blood Culture - Preliminary Blood No Growth after 48 hours Assessment and Plan (1) Anemia Narrative/Plan: Work up for hemolysis negative, continue with conservative transfusions to keep Hgb 7 or greater. No further plans for work up (ie bone marrow) until pt other acute medical conditions have been treated Current Visit: Yes Status: Acute Priority: High Code(s): D64.9 - ANEMIA, UNSPECIFIED SNOMED Code(s): 113347144 (2) CLL (chronic lymphocytic leukemia) Narrative/Plan: No evidence of progressive disease, no treatment planned Current Visit: No Status: Chronic Priority: Low Code(s): C91.10 - CHRONIC LYMPHOCYTIC LEUK OF B-CELL TYPE NOT ACHIEVE REMIS SNOMED Code(s): 16419401 Plan: Pt is being worked up aggressively for AMS
[2017-05-13] MEDS: ACETAMINOPHEN TAB 325 MG TAB PO PRN (23:32)
[2017-05-14 06:30] LABS: Glucose,Whole Blood 203 mg/dL (75-99)
[2017-05-14 06:36] LABS: HCT 27.3 % (39.0-53.0); Hypochromasia Slight; MCH 29.2 pg (25.0-35.0); MCHC 32.4 g/dL (31.0-37.0); MCV 90.2 fL (80.0-100.0); Mean Platelet Volume 7.9; Platelet Count 209 k/uL (150-450); RBC 3.02 m/uL (4.30-5.90); RDW 13.8 % (11.5-15.5); WBC 14.8 k/uL (3.8-10.6)
[2017-05-14 06:50] LABS: HGB 8.8 gm/dL (13.0-17.5)
[2017-05-14] MEDS: SODIUM CHLORIDE 0.9% 1,000 ML IV SCH ×2 (06:51→23:12)
[2017-05-14] MEDS: glipiZIDE 10 MG TAB PO SCH (06:52)
[2017-05-14] MEDS: INSULIN ASPART 100 UNIT/ML 1 ML 10 ML VIAL SQ SCH ×4 (06:52→21:42)
[2017-05-14 06:54] LABS: Anion Gap 7 mmol/L; Blood Urea Nitrogen 31 mg/dL (9-20); Calcium 8.1 mg/dL (8.4-10.2); Carbon Dioxide 29 mmol/L (22-30); Chloride 101 mmol/L (98-107); Glucose 177 mg/dL (74-99); Potassium 4.1 mmol/L (3.5-5.1); Sodium 137 mmol/L (137-145)
[2017-05-14 07:19] LABS: Lymphocytes # (M) 10.36 k/uL (1.0-4.8); Neutrophils # (M) 4.14 k/uL (1.3-7.7); Neutrophils % (M) 28 %; Nucleated Red Blood Cells 0 /100 WBC (0-0); Total Cells Counted 100
[2017-05-14] MEDS: CARBIDOPA-LEVODOPA 10-100 MG 1 EACH TAB PO SCH ×3 (08:53→19:43)
[2017-05-14] MEDS: TAMSULOSIN 0.4 MG CAP.ER.24H PO SCH (08:53)
[2017-05-14] MEDS: FOLIC ACID 1 MG TAB PO SCH (08:53)
[2017-05-14] MEDS: FINASTERIDE 5 MG TAB PO SCH (08:53)
[2017-05-14] MEDS: MULTIVITAMINS, THERA 1 EACH TAB PO SCH (08:53)
[2017-05-14] MEDS: HEPARIN SODIUM,PORCINE 5,000 UNIT/ML 1 ML VIAL SQ SCH ×2 (08:54→19:43)
[2017-05-14] MEDS: LISINOPRIL 10 MG TAB PO SCH (08:54)
[2017-05-14] MEDS: THIAMINE 100 MG TAB PO SCH (08:54)
[2017-05-14] MEDS: ATORVASTATIN 20 MG TAB PO SCH (08:54)
--- NOTE | 2017-05-14 11:46 | US ---
EXAMINATION TYPE: US kidneys/renal and bladder DATE OF EXAM: 05/14/2017 COMPARISON: CT abdomen 10/28/2014 CLINICAL HISTORY: Microhematuria. EXAM MEASUREMENTS: Right Kidney: 11.0 x 5.3 x 4.5 cm Left Kidney: 10.3 x 5.1 x 5.1 cm Technically difficult and somewhat limited study, patient unable to cooperate with examiner by moving or holding his breath. Gallstones noted Right Kidney: No hydronephrosis or masses seen Left Kidney: No hydronephrosis or masses seen, scanned posterior, cyst seen on CT 2015 not seen on to day's scan, may be due to limited visualization Bladder: Not fully distended, prostate appears large IMPRESSION: No acute process. Prostate hypertrophy. Correlate for cholelithiasis.
[2017-05-14 12:11] LABS: Glucose,Whole Blood 177 mg/dL (75-99)
[2017-05-14 17:17] LABS: Glucose,Whole Blood 320 mg/dL (75-99)
--- NOTE | 2017-05-14 17:20 | P.PN ---
Subjective Progress Note Date: 05/13/17 Progress note being dictated from Dr. Manning Interval history: This is an 87-year-old gentleman admitted with change in mental status, weakness, possible acute TIA or CVA, possible sepsis, acute on chronic parkinsonism, recently aspirated hydrocele/spermatocele in a patient with history of CLL and multiple other medical issues. More alert today. Pleasantly confused. Telemetry reports a 30 beat run of V. tach last night, asymptomatic, spontaneously resolved with further recommendations from cardiology pending. Telemetry currently sinus rhythm. Complaining of suprapubic pain. Voiding adequately. Evaluated by urology; No evidence of hernia , hydrocele, testicular or epididymal abnormality as per urology. Hemoglobin 6.8 , receiving one unit of packed RBCs. CAT scan reported possible normal pressure hydrocephalus versus ventriculomegaly, underwent diagnostic LP as requested by neurology. Tolerated well. Cytology pending.PT evaluation pending. Denies chest pain, palpitations or increasing shortness of breath. Afebrile, urine culture negative, preliminary blood cultures negative. Objective - Vital Signs Vital signs: Vital Signs Temp 97.6 F 05/14/17 16:00 Pulse 85 05/14/17 16:00 Resp 16 05/14/17 16:00 BP 140/64 05/14/17 16:00 Pulse Ox 98 05/14/17 16:00 Intake & Output 05/13/17 05/14/17 05/14/17 18:59 06:59 18:59 Intake Total 430 1180 Output Total 900 300 Balance -470 880 Weight 66 kg Intake: Intake, IV Titration 600 Amount Sodium Chloride 0.9% 1, 600 000 ml @ 50 mls/hr IV . Q20H HOLLI Rx#:[id number] Oral 120 580 Blood Product 310 Rc As-1 Unit 310 [id number] Output: Urine 900 300 Other: Voiding Method Urinal Urinal Diaper Diaper # Voids 300 1 1 # Bowel Movements 1 - Exam PHYSICAL EXAM: VITAL SIGNS: [T.96.7 (o), heart rate 69, rest rate 18, blood pressure 150/77, O2 sat 95% on room air] GENERAL: Sitting up in bed, no acute distress, pleasantly confused HEENT: Conjunctivae normal. eyes normal. Oral mucosa moist NECK: No JVD. No thyroid enlargement. No LNs CARDIOVASCULAR: S1, S2 muffled. No murmur RESPIRATION: Breath sounds diminished in the bases. Scattered rhonchi or crackles. ABDOMEN: Soft, nontender . No guarding. no masses palpable.Bowel sounds heard. LEGS: No edema. no swelling PSYCHIATRY: Alert and oriented -2, pleasantly confused, cooperative NERVOUS SYSTEM: Cranial N 2-12 grossly normal. Speech fluent, slow.Moves all 4 limbs. Diffuse weakness. Skin: no ulcer no rash Joints: No active swelling. No inflammation. - Labs CBC & Chem 7: 05/14/17 06:12 05/14/17 06:12 Labs: Abnormal Lab Results - Last 24 Hours (Table) 05/13/17 05/13/17 05/13/17 Range/Units 17:00 18:55 20:52 WBC (3.8-10.6) k/uL RBC (4.30-5.90) m/uL Hgb (13.0-17.5) gm/dL Hct (39.0-53.0) % Lymphocytes # (Manual) (1.0-4.8) k/uL BUN (9-20) mg/dL Glucose (74-99) mg/dL POC Glucose (mg/dL) 163 H 293 H (75-99) mg/dL Calcium (8.4-10.2) mg/dL CSF Glucose 73 H (40-70) mg/dL 05/14/17 05/14/17 05/14/17 Range/Units 06:12 06:12 06:24 WBC 14.8 H (3.8-10.6) k/uL RBC 3.02 L (4.30-5.90) m/uL Hgb 8.8 L D (13.0-17.5) gm/dL Hct 27.3 L (39.0-53.0) % Lymphocytes # (Manual) 10.36 H (1.0-4.8) k/uL BUN 31 H (9-20) mg/dL Glucose 177 H (74-99) mg/dL POC Glucose (mg/dL) 203 H (75-99) mg/dL Calcium 8.1 L (8.4-10.2) mg/dL CSF Glucose (40-70) mg/dL 05/14/17 Range/Units 12:08 WBC (3.8-10.6) k/uL RBC (4.30-5.90) m/uL Hgb (13.0-17.5) gm/dL Hct (39.0-53.0) % Lymphocytes # (Manual) (1.0-4.8) k/uL BUN (9-20) mg/dL Glucose (74-99) mg/dL POC Glucose (mg/dL) 177 H (75-99) mg/dL Calcium (8.4-10.2) mg/dL CSF Glucose (40-70) mg/dL Microbiology - Last 24 Hours (Table) 05/13/17 18:55 CSF Gram Stain - Preliminary Cerebral Spinal Fluid CSF Culture - Preliminary 05/10/17 20:43 Blood Culture - Preliminary Blood No Growth after 72 hours Assessment and Plan Assessment: 1. Change in mental status with weakness, possible acute TIA or CVA 2. Rule out sepsis 3. 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 Gait dysfunction 5. Right leg edema without evidence of CHF 6. Leukocytosis, possibly reactive 7. Hyponatremia, resolved 8. History of hydrocele/spermatocele on the right side, status post recent aspiration 9. Diabetes mellitus type 2 10. Chronic lymphoid leukemia 11. Possible normal pressure hydrocephalus, or ventriculomegaly, status post LP Plan: Continue on current medication regime ,monitoring and symptomatic treatment.CSF studies in progress. Receive 1 unit of packed RBCs earlier this morning , with parameters of maintaining hemoglobin greater than or equal to 7 as per oncology.close monitoring of CBC, electrolyte's with repeat labs ordered for a.m. Possible subacute rehab at discharge, PT/OT evaluation pending. Dr. Rose evaluation in progress. LP cytology pending. The impression and plan of care has been dictated as directed. : I performed a history and examination of this patient, discussed the same with the dictator. I agree with the dictator's note ,documented as a scribe. Any additional findings or plans will be noted.
[2017-05-14] MEDS ORDERED: Magnesium Replacement Protocol 1 EACH MISC MISCELLANE PRN (17:26)
--- NOTE | 2017-05-14 17:32 | P.PN ---
Subjective Progress Note Date: 05/14/17 Progress note being dictated from Dr. 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 More alert today. Pleasantly confused. Telemetry reports a 30 beat run of V. tach last night, asymptomatic, spontaneously resolved with further recommendations from cardiology pending. Telemetry currently sinus rhythm. Complaining of suprapubic pain. Voiding adequately. Evaluated by urology; No evidence of hernia , hydrocele, testicular or epididymal abnormality as per urology. Hemoglobin 6.8 , receiving one unit of packed RBCs. CAT scan reported possible normal pressure hydrocephalus versus ventriculomegaly, underwent diagnostic LP as requested by neurology. Tolerated well. Cytology pending.PT evaluation pending. Denies chest pain, palpitations or increasing shortness of breath. Afebrile, urine culture negative, preliminary blood cultures negative. 05/14/2017 no overnight events .Status post one unit of packed RBCs yesterday with hemoglobin stable at 8.8. No further ectopy reported. Magnesium level pending.Afebrile, WBC. Objective - Vital Signs Vital signs: Vital Signs Temp 97.6 F 05/14/17 16:00 Pulse 85 05/14/17 16:00 Resp 16 05/14/17 16:00 BP 140/64 05/14/17 16:00 Pulse Ox 98 05/14/17 16:00 Intake & Output 05/13/17 05/14/17 05/14/17 18:59 06:59 18:59 Intake Total 430 1180 Output Total 900 300 Balance -470 880 Weight 66 kg Intake: Intake, IV Titration 600 Amount Sodium Chloride 0.9% 1, 600 000 ml @ 50 mls/hr IV . Q20H HOLLI Rx#:[id number] Oral 120 580 Blood Product 310 Rc As-1 Unit 310 [id number] Output: Urine 900 300 Other: Voiding Method Urinal Urinal Diaper Diaper # Voids 300 1 1 # Bowel Movements 1 - Exam PHYSICAL EXAM: VITAL SIGNS: As above GENERAL: Sitting up in bed, no acute distress HEENT: Conjunctivae normal. eyes normal. Oral mucosa moist NECK: No JVD. No thyroid enlargement. No LNs CARDIOVASCULAR: S1, S2 muffled. No murmur RESPIRATION: Breath sounds diminished in the bases. Scattered rhonchi or crackles. ABDOMEN: Soft, nontender . No guarding. no masses palpable.Bowel sounds heard. LEGS: No edema. no swelling PSYCHIATRY: Alert and oriented -2, pleasantly confused, cooperative NERVOUS SYSTEM: Cranial N 2-12 grossly normal. Speech fluent, slow.Moves all 4 limbs. Diffuse weakness. Skin: no ulcer no rash Joints: No active swelling. No inflammation. - Labs CBC & Chem 7: 05/14/17 06:12 05/14/17 06:12 Labs: Abnormal Lab Results - Last 24 Hours (Table) 05/13/17 05/13/17 05/13/17 Range/Units 17:00 18:55 20:52 WBC (3.8-10.6) k/uL RBC (4.30-5.90) m/uL Hgb (13.0-17.5) gm/dL Hct (39.0-53.0) % Lymphocytes # (Manual) (1.0-4.8) k/uL BUN (9-20) mg/dL Glucose (74-99) mg/dL POC Glucose (mg/dL) 163 H 293 H (75-99) mg/dL Calcium (8.4-10.2) mg/dL CSF Glucose 73 H (40-70) mg/dL 05/14/17 05/14/17 05/14/17 Range/Units 06:12 06:12 06:24 WBC 14.8 H (3.8-10.6) k/uL RBC 3.02 L (4.30-5.90) m/uL Hgb 8.8 L D (13.0-17.5) gm/dL Hct 27.3 L (39.0-53.0) % Lymphocytes # (Manual) 10.36 H (1.0-4.8) k/uL BUN 31 H (9-20) mg/dL Glucose 177 H (74-99) mg/dL POC Glucose (mg/dL) 203 H (75-99) mg/dL Calcium 8.1 L (8.4-10.2) mg/dL CSF Glucose (40-70) mg/dL 05/14/17 05/14/17 Range/Units 12:08 17:07 WBC (3.8-10.6) k/uL RBC (4.30-5.90) m/uL Hgb (13.0-17.5) gm/dL Hct (39.0-53.0) % Lymphocytes # (Manual) (1.0-4.8) k/uL BUN (9-20) mg/dL Glucose (74-99) mg/dL POC Glucose (mg/dL) 177 H 320 H (75-99) mg/dL Calcium (8.4-10.2) mg/dL CSF Glucose (40-70) mg/dL Microbiology - Last 24 Hours (Table) 05/13/17 18:55 CSF Gram Stain - Preliminary Cerebral Spinal Fluid CSF Culture - Preliminary 05/10/17 20:43 Blood Culture - Preliminary Blood No Growth after 72 hours Assessment and Plan Assessment: 1. Change in mental status with weakness, possible acute TIA or CVA 2. Rule out sepsis 3. 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 Gait dysfunction 5. Right leg edema without evidence of CHF 6. Leukocytosis, possibly reactive 7. Hyponatremia, resolved 8. History of hydrocele/spermatocele on the right side, status post recent aspiration 9. Diabetes mellitus type 2 10. Chronic lymphoid leukemia 11. Possible normal pressure hydrocephalus, or ventriculomegaly, status post LP , cytology pending Plan: Continue on current medication regime ,monitoring and symptomatic treatment.CSF studies in progress. LP cytology pending,.close monitoring of CBC , electrolyte's with repeat labs ordered for a.m. evaluated by PT with subacute rehab recommended at discharge .Discharge planning in progress for subacute rehab tomorrow, pending neurology clearance. The impression and plan of care has been dictated as directed. : I performed a history and examination of this patient, discussed the same with the dictator. I agree with the dictator's note ,documented as a scribe. Any additional findings or plans will be noted.
[2017-05-14] MEDS: POTASSIUM CHLORIDE ER 10 MEQ TAB.ER.PRT PO SCH (19:43)
--- NOTE | 2017-05-14 19:56 | P.PN ---
Subjective Progress Note Date: 05/14/17 This patient is a 87-year-old male who was admitted to hospital with symptoms of increased unresponsiveness and Parkinson's disease. Patient was seen in neurology consultation yesterday and showed some improvement in his mental status. CAT scan of the brain revealed possible normal pressure hydrocephalus. Review of the actual CAT scan films reveals only moderate degree of ventriculomegaly. We did discuss the CAT scan findings at length with the patient's daughter who is power of research attorney yesterday in detail. We have recommended a lumbar puncture as a therapeutic To see if there is any improvement in his overall condition. Once again CAT scan is more in favor of ventriculomegaly secondary to cortical atrophy and dementia. He continues to have mild symptoms of parkinsonism. He was started on low-dose Sinemet yesterday one tablet 3 times a day. Patient was seen by urology as he was complaining of groin pain. Dr. Murray did not find source of this patient's intermittent groin pain at this time. No evidence for hernia, hydrocele, testicular up and diagonal abnormalities. He is emptying his bladder adequately. He does not have evidence of urinary incontinence at this time. The patient has been evaluated by Dr. Rose for possible inpatient rehab. We are waiting final assessment of this patient for either inpatient rehab for ECF placement. The patient has undergone lumbar puncture yesterday. We reviewed the results of the spinal tap today with the patient's daughter that the bedside. The patient has shown some improvement after being started on Sinemet. She noted today he was more conversive with her in the morning hours. We have discussed the spinal fluid results with our colleague at [facility] neurosurgery. They're recommending that the patient would be a good candidate to follow-up in the NPH clinic at [facility]. We have conveyed this information to the patient's daughter who is now considering possibly having him follow-up as outpatient therapy. At this time we would recommend to continue with all inpatient therapies. Would recommend to stabilize this patient and get him to a subacute rehab or inpatient rehab with Dr. Rose and subsequently follow-up in the outpatient setting for the NPH clinic at [facility]. This case was discussed at length today with the patient's daughter Alyssa and all of her questions were answered. She is aware of our recommendations. We will have the patient continue on low-dose Sinemet at this time. We will continue to monitor his progress closely. He will most likely require some form of rehabilitation at the time of discharge. His overall prognosis at this time remains guarded. Objective - Vital Signs Vital signs: Vital Signs Temp 97.6 F 05/14/17 16:00 Pulse 85 05/14/17 16:00 Resp 16 05/14/17 16:00 BP 140/64 05/14/17 16:00 Pulse Ox 98 05/14/17 16:00 Intake & Output 05/14/17 05/14/17 05/15/17 06:59 18:59 06:59 Intake Total 1410 Output Total 300 Balance 1110 Weight 66 kg Intake: Intake, IV Titration 600 Amount Sodium Chloride 0.9% 1, 600 000 ml @ 50 mls/hr IV . Q20H HOLLI Rx#:[id number] Oral 810 Output: Urine 300 Other: Voiding Method Urinal Diaper # Voids 1 1 - Exam Physical examination: PHYSICAL EXAMINATION: Patient is resting comfortably in bed. VITAL SIGNS: Blood pressure is [140/64]. Heart rate is [85]. Respiration is [16] . Temperature is [97.7]. HEENT: Head is atraumatic, neck is supple, there were no carotid bruits. CHEST: Lungs are clear to auscultation and percussion. CARDIAC: S1, S2 normal rate and rhythm. There is no murmur. ABDOMEN: Soft and nontender. Bowel sounds are present. EXTREMITIES: There is no pedal edema. Peripheral pulses are present. Neurological examination: Patient is more awake and alert today. He is oriented 2. Speech is slow but fluent. Cranial nerves II through XII are grossly intact motor examination reveals generalized weakness. Deep tendon reflexes are 1+ and symmetric. Plantar responses flexor bilaterally. - Labs CBC & Chem 7: 05/14/17 06:12 05/14/17 06:12 Labs: Abnormal Lab Results - Last 24 Hours (Table) 05/13/17 05/13/17 05/14/17 Range/Units 18:55 20:52 06:12 WBC 14.8 H (3.8-10.6) k/uL RBC 3.02 L (4.30-5.90) m/uL Hgb 8.8 L D (13.0-17.5) gm/dL Hct 27.3 L (39.0-53.0) % Lymphocytes # (Manual) 10.36 H (1.0-4.8) k/uL BUN (9-20) mg/dL Glucose (74-99) mg/dL POC Glucose (mg/dL) 293 H (75-99) mg/dL Calcium (8.4-10.2) mg/dL CSF Glucose 73 H (40-70) mg/dL 05/14/17 05/14/17 05/14/17 Range/Units 06:12 06:24 12:08 WBC (3.8-10.6) k/uL RBC (4.30-5.90) m/uL Hgb (13.0-17.5) gm/dL Hct (39.0-53.0) % Lymphocytes # (Manual) (1.0-4.8) k/uL BUN 31 H (9-20) mg/dL Glucose 177 H (74-99) mg/dL POC Glucose (mg/dL) 203 H 177 H (75-99) mg/dL Calcium 8.1 L (8.4-10.2) mg/dL CSF Glucose (40-70) mg/dL 05/14/17 Range/Units 17:07 WBC (3.8-10.6) k/uL RBC (4.30-5.90) m/uL Hgb (13.0-17.5) gm/dL Hct (39.0-53.0) % Lymphocytes # (Manual) (1.0-4.8) k/uL BUN (9-20) mg/dL Glucose (74-99) mg/dL POC Glucose (mg/dL) 320 H (75-99) mg/dL Calcium (8.4-10.2) mg/dL CSF Glucose (40-70) mg/dL Microbiology - Last 24 Hours (Table) 05/13/17 18:55 CSF Gram Stain - Preliminary Cerebral Spinal Fluid CSF Culture - Preliminary 05/10/17 20:43 Blood Culture - Preliminary Blood No Growth after 72 hours Assessment and Plan (1) Parkinsons disease Current Visit: Yes Status: Acute Code(s): G20 - PARKINSON'S DISEASE SNOMED Code(s): 99565459 (2) Acute encephalopathy Current Visit: Yes Status: Acute Code(s): G93.40 - ENCEPHALOPATHY, UNSPECIFIED SNOMED Code(s): 2051042 (3) Normal pressure hydrocephalus Current Visit: Yes Status: Acute Code(s): G91.2 - (IDIOPATHIC) NORMAL PRESSURE HYDROCEPHALUS SNOMED Code(s): 08028665 (4) Dementia Current Visit: Yes Status: Acute Code(s): F03.90 - UNSPECIFIED DEMENTIA WITHOUT BEHAVIORAL DISTURBANCE SNOMED Code(s): 43622245 Plan: This patient is a 87-year-old male with multiple complex medical issues. He was admitted to the hospital due to decline in his general medical condition over the past week. He was sent for computed tomography scan of the brain on admission which reveals question of ventriculomegaly versus NPH. He underwent a lumbar puncture today for further evaluation. We will need to evaluate those test results. Patient was started on low dose Sinemet as he has a history of underlying parkinsonism. He was seen by Dr. Rose today for possible inpatient rehab placement as well. Most likely he will require rehab at the time of discharge. We will await further recommendations from discharge planning. Patient is able to answer some simple questions today. He still remains weak. According to his daughter this morning he was more responsive to her. He was able to converse fairly easily. We are going to continue him on low-dose Sinemet at this time. He has been evaluated by Dr. Rose for possible inpatient rehab. We will await his final decision. Patient underwent lumbar puncture yesterday the results which were discussed today with the patient daughter Alyssa at bedside in detail. We did discuss his spinal fluid results with our colleague at [facility] neurosurgery today. They're recommending the patient would be a good candidate to follow-up in the NPH clinic at [facility] for further assessment. At this time we will are recommending that the patient be stabilized and sent to either inpatient rehab or half-way for a short period of time and then may follow- up as an outpatient in the NPH clinic at [facility]. This was discussed at length today with the patient's daughter Alyssa at bedside. She is in full agreement. At this time we will continue ongoing therapies for the patient. We may consider increasing his Sinemet after week of trial. We will continue close follow-up and monitoring of this patient is overall prognosis due to his complex medical history and issues remains very guarded. Patient's daughter is aware of his very guarded condition at this time.
[2017-05-14 21:17] LABS: Glucose,Whole Blood 291 mg/dL (75-99)
[2017-05-14] MEDS: ACETAMINOPHEN TAB 325 MG TAB PO PRN (23:09)
[2017-05-15 06:59] LABS: Glucose,Whole Blood 119 mg/dL (75-99)
[2017-05-15 07:14] LABS: Basophils % (A) 0 %; Eosinophils % (A) 0 %; HGB 8.4 gm/dL (13.0-17.5); Hypochromasia Slight; Lymphocytes % (A) 59 %; MCH 28.5 pg (25.0-35.0); MCHC 30.9 g/dL (31.0-37.0); MCV 92.2 fL (80.0-100.0); Mean Platelet Volume 7.6; Monocytes # (A) 0.2 k/uL (0-1.0); Monocytes % (A) 2 %; Neutrophils # (A) 3.8 k/uL (1.3-7.7); Neutrophils % (A) 37 %; Platelet Count 196 k/uL (150-450); RBC 2.93 m/uL (4.30-5.90); RDW 14.3 % (11.5-15.5); WBC 10.1 k/uL (3.8-10.6)
[2017-05-15 07:19] LABS: Lymphocytes # (A) 5.9 k/uL (1.0-4.8)
[2017-05-15 07:24] LABS: Anion Gap 5 mmol/L; Blood Urea Nitrogen 24 mg/dL (9-20); Carbon Dioxide 28 mmol/L (22-30); Chloride 103 mmol/L (98-107); Glucose 111 mg/dL (74-99); Magnesium 1.9 mg/dL (1.6-2.3); Potassium 4.3 mmol/L (3.5-5.1); Sodium 136 mmol/L (137-145)
[2017-05-15] MEDS: INSULIN ASPART 100 UNIT/ML 1 ML 10 ML VIAL SQ SCH ×4 (07:48→21:13)
[2017-05-15 08:23] LABS: Poikilocytosis (M) Present
[2017-05-15] MEDS: ATORVASTATIN 20 MG TAB PO SCH (08:30)
[2017-05-15] MEDS: TAMSULOSIN 0.4 MG CAP.ER.24H PO SCH (08:30)
[2017-05-15] MEDS: FINASTERIDE 5 MG TAB PO SCH (08:30)
[2017-05-15] MEDS: HEPARIN SODIUM,PORCINE 5,000 UNIT/ML 1 ML VIAL SQ SCH ×2 (08:30→21:12)
[2017-05-15] MEDS: glipiZIDE 10 MG TAB PO SCH (08:30)
[2017-05-15] MEDS: CARBIDOPA-LEVODOPA 10-100 MG 1 EACH TAB PO SCH ×3 (08:30→21:13)
[2017-05-15] MEDS: LISINOPRIL 10 MG TAB PO SCH (08:30)
[2017-05-15 11:36] LABS: Glucose,Whole Blood 195 mg/dL (75-99)
[2017-05-15] MEDS: FOLIC ACID 1 MG TAB PO SCH (12:40)
[2017-05-15] MEDS: THIAMINE 100 MG TAB PO SCH (12:40)
[2017-05-15] MEDS: MULTIVITAMINS, THERA 1 EACH TAB PO SCH (12:40)
[2017-05-15 14:41] VITALS: RESP 16
--- NOTE | 2017-05-15 15:28 | P.PN ---
Subjective Progress Note Date: 05/15/17 This patient is a 87-year-old male who was admitted to hospital with symptoms of increased unresponsiveness and Parkinson's disease. Patient was seen in neurology consultation yesterday and showed some improvement in his mental status. CAT scan of the brain revealed possible normal pressure hydrocephalus. Review of the actual CAT scan films reveals only moderate degree of ventriculomegaly. We did discuss the CAT scan findings at length with the patient's daughter who is power of claims attorney yesterday in detail. We have recommended a lumbar puncture as a therapeutic To see if there is any improvement in his overall condition. Once again CAT scan is more in favor of ventriculomegaly secondary to cortical atrophy and dementia. He continues to have mild symptoms of parkinsonism. He was started on low-dose Sinemet yesterday one tablet 3 times a day. Patient was seen by urology as he was complaining of groin pain. Dr. Murray did not find source of this patient's intermittent groin pain at this time. No evidence for hernia, hydrocele, testicular up and diagonal abnormalities. He is emptying his bladder adequately. He does not have evidence of urinary incontinence at this time. The patient has been evaluated by Dr. Rose for possible inpatient rehab. We are waiting final assessment of this patient for either inpatient rehab for ECF placement. The patient has undergone lumbar puncture yesterday. We reviewed the results of the spinal tap today with the patient's daughter that the bedside. The patient has shown some improvement after being started on Sinemet. She noted today he was more conversive with her in the morning hours. We have discussed the spinal fluid results with our colleague at [facility] neurosurgery. They're recommending that the patient would be a good candidate to follow-up in the NPH clinic at [facility]. We have conveyed this information to the patient's daughter who is now considering possibly having him follow-up as outpatient therapy. At this time we would recommend to continue with all inpatient therapies. Would recommend to stabilize this patient and get him to a subacute rehab or inpatient rehab with Dr. Rose and subsequently follow-up in the outpatient setting for the NPH clinic at [facility]. This case was discussed at length yesterday with the patient's daughter Alyssa and all of her questions were answered. She is aware of our recommendations. We will have the patient continue on low-dose Sinemet at this time. Patient was transferred to the third floor today. He continues to do very well terms of his mental status and is much more awake and alert. He is currently sitting up in the chair where he has been for the past 2 hours. He is complaining of some pain in the buttocks area otherwise he is been doing much more with his physical therapy evaluation today. Patient is awaiting possible discharge to [facility] in the next 24 hours. As mentioned he may follow-up in the NPH clinic at [facility] as outpatient. Patient is doing much better today in terms of his alertness. His speech is clear and he is much more cognizant. He is to continue on current dose of Sinemet at this time. We will continue to monitor his progress closely. He will most likely require some form of rehabilitation at the time of discharge. His overall prognosis at this time remains guarded. Objective - Vital Signs Vital signs: Vital Signs Temp 97.9 F 05/15/17 14:40 Pulse 77 05/15/17 14:40 Resp 16 05/15/17 14:40 BP 150/74 05/15/17 14:40 Pulse Ox 96 05/15/17 14:40 Intake & Output 05/14/17 05/15/17 05/15/17 18:59 06:59 18:59 Intake Total 1410 450 Output Total 300 525 Balance 1110 -75 Intake: IV 300 Sodium Chloride 0.9% 1, 300 000 ml @ 50 mls/hr IV . Q20H HOLLI Rx#:[id number] Intake, IV Titration 600 150 Amount Sodium Chloride 0.9% 1, 600 150 000 ml @ 50 mls/hr IV . Q20H HOLLI Rx#:[id number] Oral 810 Output: Urine 300 525 Other: Voiding Method Urinal Urinal Urinal Diaper Diaper Diaper Incontinent Incontinent # Voids 1 # Bowel Movements 1 - Exam Physical examination: PHYSICAL EXAMINATION: Patient is resting comfortably in bed. VITAL SIGNS: Blood pressure is [150/74]. Heart rate is [77]. Respiration is [16] . Temperature is [97.9]. HEENT: Head is atraumatic, neck is supple, there were no carotid bruits. CHEST: Lungs are clear to auscultation and percussion. CARDIAC: S1, S2 normal rate and rhythm. There is no murmur. ABDOMEN: Soft and nontender. Bowel sounds are present. EXTREMITIES: There is no pedal edema. Peripheral pulses are present. Neurological examination: Patient is more awake and alert today. He is oriented 2. Speech is slow but fluent. Cranial nerves II through XII are grossly intact motor examination reveals generalized weakness. Deep tendon reflexes are 1+ and symmetric. Plantar responses flexor bilaterally. - Labs CBC & Chem 7: 05/15/17 06:32 05/15/17 06:32 Labs: Abnormal Lab Results - Last 24 Hours (Table) 05/14/17 05/14/17 05/15/17 Range/Units 17:07 21:12 06:32 RBC 2.93 L (4.30-5.90) m/uL Hgb 8.4 L (13.0-17.5) gm/dL Hct 27.0 L (39.0-53.0) % MCHC 30.9 L (31.0-37.0) g/dL Lymphocytes # 5.9 H (1.0-4.8) k/uL Sodium (137-145) mmol/L BUN (9-20) mg/dL Glucose (74-99) mg/dL POC Glucose (mg/dL) 320 H 291 H (75-99) mg/dL Calcium (8.4-10.2) mg/dL 05/15/17 05/15/17 05/15/17 Range/Units 06:32 06:53 11:21 RBC (4.30-5.90) m/uL Hgb (13.0-17.5) gm/dL Hct (39.0-53.0) % MCHC (31.0-37.0) g/dL Lymphocytes # (1.0-4.8) k/uL Sodium 136 L (137-145) mmol/L BUN 24 H (9-20) mg/dL Glucose 111 H (74-99) mg/dL POC Glucose (mg/dL) 119 H 195 H (75-99) mg/dL Calcium 8.0 L (8.4-10.2) mg/dL Microbiology - Last 24 Hours (Table) 05/10/17 20:43 Blood Culture - Preliminary Blood No Growth after 96 hours 05/13/17 18:55 CSF Gram Stain - Preliminary Cerebral Spinal Fluid CSF Culture - Preliminary Assessment and Plan (1) Parkinsons disease Current Visit: Yes Status: Acute Code(s): G20 - PARKINSON'S DISEASE SNOMED Code(s): 39540378 (2) Acute encephalopathy Current Visit: Yes Status: Acute Code(s): G93.40 - ENCEPHALOPATHY, UNSPECIFIED SNOMED Code(s): 4799084 (3) Normal pressure hydrocephalus Current Visit: Yes Status: Acute Code(s): G91.2 - (IDIOPATHIC) NORMAL PRESSURE HYDROCEPHALUS SNOMED Code(s): 97792493 (4) Dementia Current Visit: Yes Status: Acute Code(s): F03.90 - UNSPECIFIED DEMENTIA WITHOUT BEHAVIORAL DISTURBANCE SNOMED Code(s): 52523368 Plan: This patient is a 87-year-old male who is being evaluated for altered mental status and parkinsonism. He was started on low-dose Sinemet on admission and has continued to show gradual improvement over the last several days. She was transferred to the surgical floor today and continues to do very well. He is more awake and alert today and is sitting up in the chair at bedside. He is able to answer all questions appropriately. He is awaiting possible discharge to [facility] for short-term subacute rehab. He is to continue on his current dose of Sinemet. We have discussed at length the possibility of having the patient evaluated in the NPH clinic at [facility] as an outpatient soon after discharge from nursing facility. We're waiting for the recommendations from Dr. Rose and discharge planning. We will continue to monitor his progress very closely during this admission. Patient continues to show improvement in his overall neurological status.
[2017-05-15 16:51] LABS: Glucose,Whole Blood 233 mg/dL (75-99)
[2017-05-15 20:40] LABS: Glucose,Whole Blood 283 mg/dL (75-99)
[2017-05-15] MEDS: SODIUM CHLORIDE 0.9% 1,000 ML IV SCH (22:21)
[2017-05-16 07:19] VITALS: BP 128/64; PULSE 78; TEMP 97.8
[2017-05-16 09:04] LABS: Glucose,Whole Blood 193 mg/dL (75-99)
[2017-05-16] MEDS: FOLIC ACID 1 MG TAB PO SCH (09:21)
[2017-05-16] MEDS: INSULIN ASPART 100 UNIT/ML 1 ML 10 ML VIAL SQ SCH ×2 (09:21→13:22)
[2017-05-16] MEDS: MULTIVITAMINS, THERA 1 EACH TAB PO SCH (09:21)
[2017-05-16] MEDS: ACETAMINOPHEN TAB 325 MG TAB PO PRN (09:21)
[2017-05-16] MEDS: TAMSULOSIN 0.4 MG CAP.ER.24H PO SCH (09:21)
[2017-05-16] MEDS: CARBIDOPA-LEVODOPA 10-100 MG 1 EACH TAB PO SCH (09:22)
[2017-05-16] MEDS: FINASTERIDE 5 MG TAB PO SCH (09:22)
[2017-05-16] MEDS: glipiZIDE 10 MG TAB PO SCH (09:22)
[2017-05-16] MEDS: LISINOPRIL 10 MG TAB PO SCH (09:22)
[2017-05-16] MEDS: ATORVASTATIN 20 MG TAB PO SCH (09:22)
[2017-05-16] MEDS: THIAMINE 100 MG TAB PO SCH (09:22)
--- NOTE | 2017-05-16 09:45 | P.PN ---
Subjective Progress Note Date: 05/15/17 Progress note being dictated from Dr. 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 More alert today. Pleasantly confused. Telemetry reports a 30 beat run of V. tach last night, asymptomatic, spontaneously resolved with further recommendations from cardiology pending. Telemetry currently sinus rhythm. Complaining of suprapubic pain. Voiding adequately. Evaluated by urology; No evidence of hernia , hydrocele, testicular or epididymal abnormality as per urology. Hemoglobin 6.8 , receiving one unit of packed RBCs. CAT scan reported possible normal pressure hydrocephalus versus ventriculomegaly, underwent diagnostic LP as requested by neurology. Tolerated well. Cytology pending.PT evaluation pending. Denies chest pain, palpitations or increasing shortness of breath. Afebrile, urine culture negative, preliminary blood cultures negative. 05/14/2017 no overnight events .Status post one unit of packed RBCs yesterday with hemoglobin stable at 8.8. No further ectopy reported. Magnesium level pending.Afebrile, WBC. 05/15/2017 No overnight events. Maintained on Sinemet, initiated this admission, with improvement. More alert today.No CP, palpitations, no increased shortness of breath.Afebrile,normal WBC, preliminaryCSF negative. Objective - Vital Signs Vital signs: Vital Signs Temp 97.9 F 05/15/17 14:40 Pulse 77 05/15/17 14:40 Resp 16 05/15/17 14:40 BP 150/74 05/15/17 14:40 Pulse Ox 96 05/15/17 14:40 Intake & Output 05/15/17 05/15/17 05/16/17 06:59 18:59 06:59 Intake Total 450 400 Output Total 525 Balance -75 400 Intake: IV 300 400 Sodium Chloride 0.9% 1, 300 400 000 ml @ 50 mls/hr IV . Q20H HOLLI Rx#:[id number] Intake, IV Titration 150 Amount Sodium Chloride 0.9% 1, 150 000 ml @ 50 mls/hr IV . Q20H HOLLI Rx#:[id number] Output: Urine 525 Other: Voiding Method Urinal Urinal Diaper Diaper Incontinent Incontinent # Voids 1 # Bowel Movements 1 - Exam PHYSICAL EXAM: VITAL SIGNS: As above GENERAL: Sitting up in chair,more alert, no acute distress HEENT: Conjunctivae normal. eyes normal. Oral mucosa moist NECK: No JVD. No thyroid enlargement. No LNs CARDIOVASCULAR: S1, S2 muffled. No murmur RESPIRATION: Breath sounds diminished in the bases. Scattered rhonchi or crackles. ABDOMEN: Soft, nontender . No guarding. no masses palpable.Bowel sounds heard. LEGS: No edema. no swelling PSYCHIATRY: Alert and oriented -2, pleasantly confused, cooperative NERVOUS SYSTEM: Cranial N 2-12 grossly normal. Speech fluent, slow.Moves all 4 limbs. Diffuse weakness. Skin: no ulcer no rash Joints: No active swelling. No inflammation. - Labs CBC & Chem 7: 05/15/17 06:32 05/15/17 06:32 Labs: Abnormal Lab Results - Last 24 Hours (Table) 05/14/17 05/15/17 05/15/17 Range/Units 21:12 06:32 06:32 RBC 2.93 L (4.30-5.90) m/uL Hgb 8.4 L (13.0-17.5) gm/dL Hct 27.0 L (39.0-53.0) % MCHC 30.9 L (31.0-37.0) g/dL Lymphocytes # 5.9 H (1.0-4.8) k/uL Sodium 136 L (137-145) mmol/L BUN 24 H (9-20) mg/dL Glucose 111 H (74-99) mg/dL POC Glucose (mg/dL) 291 H (75-99) mg/dL Calcium 8.0 L (8.4-10.2) mg/dL 05/15/17 05/15/17 05/15/17 Range/Units 06:53 11:21 16:49 RBC (4.30-5.90) m/uL Hgb (13.0-17.5) gm/dL Hct (39.0-53.0) % MCHC (31.0-37.0) g/dL Lymphocytes # (1.0-4.8) k/uL Sodium (137-145) mmol/L BUN (9-20) mg/dL Glucose (74-99) mg/dL POC Glucose (mg/dL) 119 H 195 H 233 H (75-99) mg/dL Calcium (8.4-10.2) mg/dL Microbiology - Last 24 Hours (Table) 05/10/17 20:43 Blood Culture - Preliminary Blood No Growth after 96 hours 05/13/17 18:55 CSF Gram Stain - Preliminary Cerebral Spinal Fluid CSF Culture - Preliminary Assessment and Plan Assessment: 1. Change in mental status with weakness, possible acute TIA or CVA 2. Rule out sepsis 3. 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 Gait dysfunction 5. Right leg edema without evidence of CHF 6. Leukocytosis, possibly reactive 7. Hyponatremia, resolved 8. History of hydrocele/spermatocele on the right side, status post recent aspiration 9. Diabetes mellitus type 2 10. Chronic lymphoid leukemia 11. Possible normal pressure hydrocephalus, or ventriculomegaly, status post LP , CSF prelim. negative, further eval. OP Plan: Continue on current medication regime ,monitoring and symptomatic treatment.CSF currently negative, continue to follow closely. Neurology recommending further evaluation OP at [facility] clinic at [facility].Discharge planning in progress for [facility] IP rehab. The impression and plan of care has been dictated as directed. : I performed a history and examination of this patient, discussed the same with the dictator. I agree with the dictator's note ,documented as a scribe. Any additional findings or plans will be noted.
[2017-05-16] MEDS: HEPARIN SODIUM,PORCINE 5,000 UNIT/ML 1 ML VIAL SQ SCH (09:56)
--- NOTE | 2017-05-16 10:12 | P.DS ---
Providers Date of admission: 05/10/17 21:46 Expected date of discharge: 05/16/17 Attending physician: Silvano Mansfield Consults: 05/10/17 21:46 Consult Physician Urgent Consulting Provider: Golden Monsalve Consult Reason/Comments: cll Do you want consulting provider notified?: Yes Consult Physician Urgent Consulting Provider: Ivon Huff Consult Reason/Comments: Altered mental status, normal pressure hydrocephalus Do you want consulting provider notified?: Yes 05/11/17 11:06 Consult Physician Urgent Consulting Provider: Jorge Isabel Consult Reason/Comments: known to patient, right groin pain Do you want consulting provider notified?: Yes 05/11/17 13:06 Consult Physician Routine Consulting Provider: Vashti Montenegro Consult Reason/Comments: edema Do you want consulting provider notified?: Yes 05/12/17 08:00 Consult to Anesthesia Urgent Consulting Provider: Anesthesia,Services Consult Reason/Comments: Possible Normal Pressure Hydrocephalus and confusion. Need open/close press 05/13/17 08:00 Consult Physician Urgent Consulting Provider: Oneil Rose Consult Reason/Comments: Parkinson's disease and generalized weakness. Do you want consulting provider notified?: Yes Primary care physician: Nikki Garcia [facility] Course: Final Diagnoses: 1. Change in mental status with weakness, possible acute TIA or CVA 2. Rule out sepsis 3. 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 Gait dysfunction 5. Right leg edema without evidence of CHF 6. Leukocytosis, possibly reactive 7. Hyponatremia, resolved 8. History of hydrocele/spermatocele on the right side, status post recent aspiration 9. Diabetes mellitus type 2 10. Chronic lymphoid leukemia 11. Possible normal pressure hydrocephalus, or ventriculomegaly, status post LP , CSF prelim. negative, further eval. OP 12. V. tach 13. Anemia of unknown etiology in a patient with history of CLL, status post packed RBC transfusion, being followed by oncology. 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 More alert today. Pleasantly confused initially on admission. Evaluated by neurology, cardiology , urology. Isolated event of V. tach, spontaneously converted. Telemetry currently sinus rhythm. Complained of suprapubic pain. Voiding adequately. Evaluated by urology with no evidence of hernia, hydrocele, testicular or epididymal abnormality as per urology. CAT scan reported possible normal pressure hydrocephalus versus ventriculomegaly, underwent diagnostic LP as requested by neurology.preliminaryCSF negative.Afebrile, urine culture negative , preliminary blood cultures negative.Maintained on Sinemet, initiated this admission, with improvement. Significant clinical improvement. Patient has been cleared by all consults for discharge. Patient is being discharged to the [facility] inpatient rehab in a stable condition with her prognosis. Physical exam: VSS,CARDIOVASCULAR: Regular S1 and S2, no edema.RESPIRATION: Breath sounds diminished in the bases. Scattered rhonchi. ABDOMEN: Soft, nontender . No guarding. no masses palpable.Bowel sounds heard. PSYCHIATRY: Alert and oriented -2, minimally confused, cooperative. The impression and plan of care has been dictated as directed. : I performed a history and examination of this patient, discussed the same with the dictator. I agree with the dictator's note ,documented as a scribe. Any additional findings or plans will be noted. Time taken: 35 minutes Patient Condition at Discharge: Stable Plan - Discharge Summary Discharge Rx Participant: No New Discharge Prescriptions: New Acetaminophen Tab [Tylenol] 650 mg PO Q6HR PRN tab PRN Reason: Fever and/ or Mild Pain Carbidopa-Levodopa 10-100 mg [Sinemet 10-100 mg] 1 each PO TID tab Folic Acid 1 mg PO DAILY@1200 tab INSULIN LISPRO (HumaLOG) [humaLOG] 0 unit SQ ACHS #1 vial Multivitamins, Thera [Multivitamin (formulary)] 1 each PO DAILY@1200 tab Tamsulosin [Flomax] 0.4 mg PO PC-BRKFST cap.er.24h Thiamine [Vitamin B-1] 100 mg PO DAILY@1200 tab Continue glipiZIDE [Glucotrol] 10 mg PO AC-BRKFST Potassium Chloride ER [K-Dur 10] 10 meq PO Q48H Furosemide [Lasix] 20 mg PO Q48H Lisinopril [Prinivil] 10 mg PO DAILY Finasteride [Proscar] 5 mg PO DAILY Atorvastatin [Lipitor] 20 mg PO DAILY Discharge Medication List Atorvastatin [Lipitor] 20 mg PO DAILY 05/10/17 [History] Finasteride [Proscar] 5 mg PO DAILY 05/10/17 [History] Furosemide [Lasix] 20 mg PO Q48H 05/10/17 [History] Lisinopril [Prinivil] 10 mg PO DAILY 05/10/17 [History] Potassium Chloride ER [K-Dur 10] 10 meq PO Q48H 05/10/17 [History] glipiZIDE [Glucotrol] 10 mg PO AC-BRKFST 05/10/17 [History] Acetaminophen Tab [Tylenol] 650 mg PO Q6HR PRN tab 05/16/17 [Rx] Carbidopa-Levodopa 10-100 mg [Sinemet 10-100 mg] 1 each PO TID tab 05/16/17 [Rx ] Folic Acid 1 mg PO DAILY@1200 tab 05/16/17 [Rx] INSULIN LISPRO (HumaLOG) [humaLOG] 0 unit SQ ACHS #1 vial 05/16/17 [Rx] Multivitamins, Thera [Multivitamin (formulary)] 1 each PO DAILY@1200 tab [Rx] Tamsulosin [Flomax] 0.4 mg PO PC-BRKFST cap.er.24h 05/16/17 [Rx] Thiamine [Vitamin B-1] 100 mg PO DAILY@1200 tab 05/16/17 [Rx] Follow up Appointment(s)/Referral(s): Ivon Huff MD [STAFF PHYSICIAN] - 2 Weeks Jorge Isabel MD [STAFF PHYSICIAN] - As Needed Nikki Cisse III, MD [Primary Care Provider] - 1 Week (after dc from IP Rehab) Oneil Rose MD [STAFF PHYSICIAN] - 3 Days (at IP Rehab) Golden Monsalve MD [STAFF PHYSICIAN] - 1 Week Activity/Diet/Wound Care/Special Instructions: [facility] IP Rehab DIet: Dysphagia, level 3, chopped soft, Cardiac, consist. carb Activity: as tolerated cbc,bmp in 3 days Discharge Disposition: TRANSFER TO SNF/ECF
[2017-05-16 11:59] LABS: Glucose,Whole Blood 314 mg/dL (75-99)
== END 2017-05-16 14:20 | DRG 69 ==
LOC: EC 19:59 → 6SEL 21:46 → 3SUR 05-14 22:17
PROVIDERS: ADMIT Hospitalist; ATTEND Hospitalist
PROC: 009U3ZX Drainage of Spinal Canal, Percutaneous Approach, Diagnostic (ICD-10-PCS; principal; 2017-05-13)
DX: G45.9 Transient cerebral ischemic attack, unspecified (principal); I63.9 Cerebral infarction, unspecified; G93.40 Encephalopathy, unspecified; I47.2 Ventricular tachycardia; C91.10 Chronic lymphocytic leukemia of B-cell type not having achieved remission; E87.1 Hypo-osmolality and hyponatremia; G91.2 (Idiopathic) normal pressure hydrocephalus; D63.0 Anemia in neoplastic disease; E11.9 Type 2 diabetes mellitus without complications; G20 Parkinson's disease; E78.5 Hyperlipidemia, unspecified; F03.90 Unspecified dementia, unspecified severity, without behavioral disturbance, psychotic disturbance, mood disturbance, and anxiety; I10 Essential (primary) hypertension; I25.10 Atherosclerotic heart disease of native coronary artery without angina pectoris; I89.0 Lymphedema, not elsewhere classified; K21.9 Gastro-esophageal reflux disease without esophagitis; N40.0 Benign prostatic hyperplasia without lower urinary tract symptoms; R62.7 Adult failure to thrive; Z79.899 Other long term (current) drug therapy; Z82.0 Family history of epilepsy and other diseases of the nervous system; Z82.49 Family history of ischemic heart disease and other diseases of the circulatory system; Z85.828 Personal history of other malignant neoplasm of skin; Z87.891 Personal history of nicotine dependence; Z79.84 Long term (current) use of oral hypoglycemic drugs
CPT/HCPCS: 36415; 70450; 71046; 72170; 76770; 80048; 80053; 80061; 81001; 82009; 82550; 82553; 82607; 82728; 82747; 82945; 83010; 83036; 83540; 83550; 83615; 83735; 84157; 84484; 84550; 85025; 85045; 85610; 85730; 86695; 86696; 86735; 86765; 86787; 86788; 86789; 86850; 86900; 86901; 86920; 87040; 87070; 87086; 87205; 87220; 87502; 87529; 88108; 89050; 93005; 93306; 93880; 96360; 96361; 99285

== ENCOUNTER 2017-06-07 14:59 | Inpatient (IN) | payer MEDICARE, BC ==
[2017-06-07] MEDS ORDERED: SODIUM CHLORIDE 0.9% 500 ML IV STA (15:25)
--- NOTE | 2017-06-07 15:29 | ED ---
General Adult HPI - General Chief complaint: Altered Mental Status Stated complaint: Altered Mental Time Seen by Provider: 06/07/17 15:00 Source: EMS, RN notes reviewed Mode of arrival: EMS Limitations: no limitations - History of Present Illness Initial comments: This is an 87-year-old male who comes from a correction. I got a call from Dr. Driver earlier that the patient was unresponsive at the correction however when EMS arrived he was alert and had no complaints at that time. According to EMS he was alert when they got there. According to family members he always had his eyes open but was not responding at all and that lasted about 5 minutes. Patient again has no complaint at this time. Patient has had no recent fever chills. Patient has had no vomiting or diarrhea. Patient said no respiratory distress. Dr. Driver callback and thought maybe the patient aspirated. - Related Data Home Medications Medication Instructions Recorded Confirmed Atorvastatin [Lipitor] 20 mg PO DAILY 05/10/17 06/07/17 Finasteride [Proscar] 5 mg PO DAILY 05/10/17 06/07/17 Furosemide [Lasix] 20 mg PO Q48H 05/10/17 06/07/17 Lisinopril [Prinivil] 10 mg PO DAILY 05/10/17 06/07/17 Carbidopa-Levodopa 10-100 mg 1 each PO TID@0900,1300,2100 06/07/17 06/07/17 [Sinemet 10-100 mg] Folic Acid 1 mg PO DAILY@0900 06/07/17 06/07/17 INSULIN LISPRO (HumaLOG) [HumaLOG] See Protocol SQ ACHS 06/07/17 06/07/17 Insulin Glargine,Hum.rec.anlog 6 unit SQ DAILY 06/07/17 06/07/17 [Basaglar Kwikpen U-100] Insulin Glargine,Hum.rec.anlog 12 unit SQ HS 06/07/17 06/07/17 [Basaglar Kwikpen U-100] Insulin Lispro [humaLOG Kwikpen] 2 unit SQ TID@0800,1200,1700 06/07/17 06/07/17 Levothyroxine Sodium [Synthroid] 50 mcg PO QAM 06/07/17 06/07/17 Melatonin 3 mg PO HS 06/07/17 06/07/17 Sennosides [Senokot] 8.6 mg PO DAILY 06/07/17 06/07/17 Thiamine [Vitamin B-1] 100 mg PO DAILY@0900 06/07/17 06/07/17 rOPINIRole HCL [Requip] 0.25 mg PO DAILY 06/07/17 06/07/17 Previous Rx's Medication Instructions Recorded Acetaminophen Tab [Tylenol] 650 mg PO Q6HR PRN tab 05/16/17 Tamsulosin [Flomax] 0.4 mg PO PC-BRKFST cap.er.24h 05/16/17 Allergies Allergy/AdvReac Type Severity Reaction Status Date / Time No Known Allergies Allergy Verified 06/07/17 15:17 Review of Systems ROS Statement: Those systems with pertinent positive or pertinent negative responses have been documented in the HPI. ROS Other: All systems not noted in ROS Statement are negative. Past Medical History Past Medical History: Coronary Artery Disease (CAD), Diabetes Mellitus, GERD/ Reflux, Hyperlipidemia, Hypertension, Osteoarthritis (OA), Prostate Disorder, Skin Disorder Additional Past Medical History / Comment(s): CLL, early stages of Parkinsons, basal cell carcinoma History of Any Multi-Drug Resistant Organisms: None Reported Past Surgical History: Appendectomy, Heart Catheterization With Stent Additional Past Surgical History / Comment(s): cataract Past Anesthesia/Blood Transfusion Reactions: No Reported Reaction Date of Last Stent Placement:: 1994 Past Psychological History: No Psychological Hx Reported, Anxiety Smoking Status: Never smoker Past Alcohol Use History: None Reported Past Drug Use History: None Reported - Past Family History Mother Family Medical History: CVA/TIA Additional Family Medical History / Comment(s): Parkinsons Father Family Medical History: Coronary Artery Disease (CAD) General Exam - General Exam Comments Initial Comments: GENERAL: Patient is well-developed and well-nourished. Patient is nontoxic and well- hydrated and is in no acute distress. ENT: Neck is soft and supple. No significant lymphadenopathy is noted. Oropharynx is clear. Moist mucous membranes. Neck has full range of motion without eliciting any pain. EYES: The sclera were anicteric and conjunctiva were pink and moist. Extraocular movements were intact and pupils were equal round and reactive to light. Eyelids were unremarkable. PULMONARY: Unlabored respirations. Good breath sounds bilaterally. No audible rales rhonchi or wheezing was noted. CARDIOVASCULAR: There is a regular rate and rhythm without any murmurs gallops or rubs. ABDOMEN: Soft and nontender with normal bowel sounds. No palpable organomegaly was noted. There is no palpable pulsatile mass. SKIN: Skin is clear with no lesions or rashes and otherwise unremarkable. NEUROLOGIC: Patient is alert and oriented 2. Cranial nerves II through XII are grossly intact. Motor and sensory are also intact. Normal speech, volume and content. Symmetrical smile. MUSCULOSKELETAL: Normal extremities with adequate strength and full range of motion. No lower extremity swelling or edema. No calf tenderness. LYMPHATICS: No significant lymphadenopathy is noted PSYCHIATRIC: Normal psychiatric evaluation. Limitations: no limitations Course Vital Signs 06/07/17 14:59 Temperature 96.8 F L Pulse Rate 96 Respiratory 12 Rate Blood Pressure 87/54 O2 Sat by Pulse 98 Oximetry Medical Decision Making - Medical Decision Making EKG shows normal sinus rhythm at 91 bpm AR interval 236 QRS is 90 QT interval 356 QTC is 437. Patient's EKG shows no ST segment elevation or depression or T wave abnormalities are noted Chest x-ray showed no acute abnormality. Daughter states the patient did complain of some headaches so I'm going to do a CAT scan. Spoke with Dr. Mansfield he agreed to admit the patient admitted the patient I consult to Dr. Mclaughlin knows the patient. - Lab Data Result diagrams: 06/07/17 15:13 06/07/17 15:13 Lab Results 06/07/17 06/07/17 06/07/17 Range/Units 15:13 15:13 15:13 WBC 15.1 H (3.8-10.6) k/uL RBC 2.52 L (4.30-5.90) m/uL Hgb 7.1 L (13.0-17.5) gm/dL Hct 22.8 L (39.0-53.0) % MCV 90.7 (80.0-100.0) fL MCH 28.1 (25.0-35.0) pg MCHC 31.0 (31.0-37.0) g/dL RDW 15.2 (11.5-15.5) % Plt Count 262 (150-450) k/uL Neutrophils % (Manual) 30 % Lymphocytes % (Manual) 67 % Monocytes % (Manual) 3 % Neutrophils # (Manual) 4.53 (1.3-7.7) k/uL Lymphocytes # (Manual) 10.12 H (1.0-4.8) k/uL Monocytes # (Manual) 0.45 (0-1.0) k/uL Nucleated RBCs 0 (0-0) /100 WBC Manual Slide Review Performed Polychromasia Present Hypochromasia Slight Anisocytosis (manual) Present PT (9.0-12.0) sec INR (<1.2) APTT (22.0-30.0) sec Sodium 135 L (137-145) mmol/L Potassium 4.0 (3.5-5.1) mmol/L Chloride 101 (98-107) mmol/L Carbon Dioxide 25 (22-30) mmol/L Anion Gap 9 mmol/L BUN 33 H (9-20) mg/dL Creatinine 0.80 (0.66-1.25) mg/dL Est GFR (MDRD) Af Amer >60 (>60 ml/min/1.73 sqM) Est GFR (MDRD) Non-Af >60 (>60 ml/min/1.73 sqM) Glucose 151 H (74-99) mg/dL Calcium 8.2 L (8.4-10.2) mg/dL Magnesium 1.9 (1.6-2.3) mg/dL Total Bilirubin 0.6 (0.2-1.3) mg/dL AST 12 L (17-59) U/L ALT 11 L (21-72) U/L Alkaline Phosphatase 70 (38-126) U/L Total Creatine Kinase <20 L (55-170) U/L CK-MB (CK-2) 0.6 (0.0-2.4) ng/mL CK-MB (CK-2) Rel Index Troponin I <0.012 (0.000-0.034) ng/mL Total Protein 4.5 L (6.3-8.2) g/dL Albumin 2.3 L (3.5-5.0) g/dL 06/07/17 Range/Units 15:13 WBC (3.8-10.6) k/uL RBC (4.30-5.90) m/uL Hgb (13.0-17.5) gm/dL Hct (39.0-53.0) % MCV (80.0-100.0) fL MCH (25.0-35.0) pg MCHC (31.0-37.0) g/dL RDW (11.5-15.5) % Plt Count (150-450) k/uL Neutrophils % (Manual) % Lymphocytes % (Manual) % Monocytes % (Manual) % Neutrophils # (Manual) (1.3-7.7) k/uL Lymphocytes # (Manual) (1.0-4.8) k/uL Monocytes # (Manual) (0-1.0) k/uL Nucleated RBCs (0-0) /100 WBC Manual Slide Review Polychromasia Hypochromasia Anisocytosis (manual) PT 11.4 (9.0-12.0) sec INR 1.2 H (<1.2) APTT 25.5 (22.0-30.0) sec Sodium (137-145) mmol/L Potassium (3.5-5.1) mmol/L Chloride (98-107) mmol/L Carbon Dioxide (22-30) mmol/L Anion Gap mmol/L BUN (9-20) mg/dL Creatinine (0.66-1.25) mg/dL Est GFR (MDRD) Af Amer (>60 ml/min/1.73 sqM) Est GFR (MDRD) Non-Af (>60 ml/min/1.73 sqM) Glucose (74-99) mg/dL Calcium (8.4-10.2) mg/dL Magnesium (1.6-2.3) mg/dL Total Bilirubin (0.2-1.3) mg/dL AST (17-59) U/L ALT (21-72) U/L Alkaline Phosphatase (38-126) U/L Total Creatine Kinase (55-170) U/L CK-MB (CK-2) (0.0-2.4) ng/mL CK-MB (CK-2) Rel Index Troponin I (0.000-0.034) ng/mL Total Protein (6.3-8.2) g/dL Albumin (3.5-5.0) g/dL Disposition Clinical Impression: Unresponsiveness, Leukocytosis, Anemia Disposition: ADMITTED IP TO THIS HOSP Referrals: Laura Rock MD [STAFF PHYSICIAN] - 1-2 days Time of Disposition: 16:47
[2017-06-07 15:37] LABS: HCT 22.8 % (39.0-53.0); HGB 7.1 gm/dL (13.0-17.5); Hypochromasia Slight; MCH 28.1 pg (25.0-35.0); MCV 90.7 fL (80.0-100.0); Mean Platelet Volume 7.3; Platelet Count 262 k/uL (150-450); RBC 2.52 m/uL (4.30-5.90); RDW 15.2 % (11.5-15.5); WBC 15.1 k/uL (3.8-10.6)
[2017-06-07 15:48] LABS: ALT 11 U/L (21-72); AST 12 U/L (17-59); Albumin 2.3 g/dL (3.5-5.0); Alkaline Phosphatase 70 U/L (38-126); Anion Gap 9 mmol/L; Blood Urea Nitrogen 33 mg/dL (9-20); Calcium 8.2 mg/dL (8.4-10.2); Carbon Dioxide 25 mmol/L (22-30); Chloride 101 mmol/L (98-107); Glucose 151 mg/dL (74-99); Magnesium 1.9 mg/dL (1.6-2.3); Sodium 135 mmol/L (137-145); Total Bilirubin 0.6 mg/dL (0.2-1.3); Total Protein 4.5 g/dL (6.3-8.2)
[2017-06-07 15:50] LABS: INR 1.2 (<1.2); Partial Thromboplastin Time 25.5 sec (22.0-30.0); Prothrombin Time 11.4 sec (9.0-12.0)
[2017-06-07 15:52] LABS: Anisocytosis (M) Present; Lymphocytes # (M) 10.12 k/uL (1.0-4.8); Monocytes # (M) 0.45 k/uL (0-1.0); Neutrophils # (M) 4.53 k/uL (1.3-7.7); Neutrophils % (M) 30 %; Nucleated Red Blood Cells 0 /100 WBC (0-0); Polychromasia Present; Total Cells Counted 100
[2017-06-07 16:01] LABS: Creatine Kinase <20 U/L (55-170)
--- NOTE | 2017-06-07 16:04 | XR ---
EXAMINATION TYPE: XR chest 2V DATE OF EXAM: 06/07/2017 COMPARISON: 05/10/2017 HISTORY: Concern for aspiration. Shortness of breath. TECHNIQUE: Frontal and lateral views of the chest are obtained. FINDINGS: There are trace layering pleural effusion seen on the lateral image. Pulmonary hyperinflat ion compatible with underlying COPD. There is diffuse osseous demineralization and moderate multileve l degenerative changes of the thoracic spine. No focal consolidation or pneumothorax is seen. Moderat e acromioclavicular joint arthropathy. IMPRESSION: Trace bilateral pleural effusions and radiographic sequela of COPD. No focal consolidati on to suggest pneumonia.
[2017-06-07 16:13] LABS: Creatine Kinase MB 0.6 ng/mL (0.0-2.4); Troponin I <0.012 ng/mL (0.000-0.034)
[2017-06-07] MEDS ORDERED: SODIUM CHLORIDE 0.9% 1,000 ML IV ONE (16:50)
--- NOTE | 2017-06-07 17:40 | CT ---
EXAMINATION TYPE: CT brain wo con DATE OF EXAM: 06/07/2017 COMPARISON: 05/10/2017 HISTORY: Altered mental status. CT DLP: 1005.8 mGycm Automated exposure control for dose reduction was used. FINDINGS: There is moderate diffuse cerebral atrophy. There is no mass effect nor midline shift. There is no si gn of intracranial hemorrhage. The calvarium is intact. There is enlargement of the ventricles. IMPRESSION: CEREBRAL ATROPHY. NO ACUTE INTRACRANIAL ABNORMALITY. NO CHANGE.
[2017-06-07 21:08] LABS: Glucose,Whole Blood 232 mg/dL (75-99)
[2017-06-07] MEDS ORDERED: ACETAMINOPHEN TAB 325 MG TAB PO PRN (21:48)
[2017-06-07 21:52] LABS: HCT 20.4 % (39.0-53.0); Hypochromasia Slight; MCH 28.3 pg (25.0-35.0); MCHC 31.3 g/dL (31.0-37.0); MCV 90.2 fL (80.0-100.0); Mean Platelet Volume 8.3; Platelet Count 186 k/uL (150-450); RBC 2.26 m/uL (4.30-5.90); RDW 15.1 % (11.5-15.5); WBC 15.2 k/uL (3.8-10.6)
[2017-06-07] MEDS ORDERED: INSULIN DETEMIR 100 UNIT/ML 10 ML VIAL SQ SCH (22:00)
[2017-06-07] MEDS ORDERED: MELATONIN 3 MG TABLET PO SCH (22:00)
[2017-06-07 22:14] LABS: HGB 6.4 gm/dL (13.0-17.5)
[2017-06-07 22:42] LABS: Lymphocytes # (M) 10.49 k/uL (1.0-4.8); Neutrophils # (M) 4.41 k/uL (1.3-7.7); Neutrophils % (M) 29 %; Nucleated Red Blood Cells 0 /100 WBC (0-0); Total Cells Counted 100
[2017-06-07] MEDS: FINASTERIDE 5 MG TAB PO SCH (22:54)
[2017-06-07] MEDS: CARBIDOPA-LEVODOPA 10-100 MG 1 EACH TAB PO SCH (22:55)
[2017-06-07] MEDS: ATORVASTATIN 20 MG TAB PO SCH (22:55)
[2017-06-08 00:17] VITALS: RESP 16
[2017-06-08] MEDS ORDERED: FUROSEMIDE 10 MG/ML 2 ML VIAL IV ONE ×2 (03:00→07:00)
[2017-06-08 03:48] LABS: Appearance,Urine Clear (Clear); Bilirubin,Urine Negative (Negative); Blood,Urine Negative (Negative); Color,Urine Light Yellow; Glucose,Urine (UA) Negative (Negative); Ketones,Urine Negative (Negative); Leukocyte Esterase,Urine Negative (Negative); Nitrite,Urine Negative (Negative); Protein,Urine Negative (Negative); Specific Gravity,Urine 1.006 (1.001-1.035); Urobilinogen,Urine <2.0 mg/dL (<2.0)
[2017-06-08 06:16] LABS: Glucose,Whole Blood 98 mg/dL (75-99)
[2017-06-08] MEDS: INSULIN ASPART 100 UNIT/ML 1 ML 10 ML VIAL SQ SCH ×4 (06:17→11:55)
[2017-06-08 07:08] LABS: HCT 29.8 % (39.0-53.0); Hypochromasia Slight; MCH 27.9 pg (25.0-35.0); MCHC 31.6 g/dL (31.0-37.0); MCV 88.3 fL (80.0-100.0); Mean Platelet Volume 6.7; Platelet Count 228 k/uL (150-450); RBC 3.37 m/uL (4.30-5.90); RDW 15.6 % (11.5-15.5); WBC 21.7 k/uL (3.8-10.6)
[2017-06-08 07:15] LABS: ALT 18 U/L (21-72); AST 10 U/L (17-59); Albumin 2.3 g/dL (3.5-5.0); Alkaline Phosphatase 69 U/L (38-126); Anion Gap 6 mmol/L; Blood Urea Nitrogen 31 mg/dL (9-20); Calcium 8.4 mg/dL (8.4-10.2); Carbon Dioxide 29 mmol/L (22-30); Chloride 102 mmol/L (98-107); Glucose 70 mg/dL (74-99); Sodium 137 mmol/L (137-145); Total Bilirubin 1.4 mg/dL (0.2-1.3); Total Protein 4.6 g/dL (6.3-8.2)
[2017-06-08 07:45] LABS: Lymphocytes # (M) 16.06 k/uL (1.0-4.8); Monocytes # (M) 0.22 k/uL (0-1.0); Neutrophils # (M) 5.43 k/uL (1.3-7.7); Neutrophils % (M) 25 %; Nucleated Red Blood Cells 0 /100 WBC (0-0); Polychromasia Present; Total Cells Counted 100
[2017-06-08] MEDS: ATORVASTATIN 20 MG TAB PO SCH (08:54)
[2017-06-08] MEDS: FINASTERIDE 5 MG TAB PO SCH (08:54)
[2017-06-08] MEDS: CARBIDOPA-LEVODOPA 10-100 MG 1 EACH TAB PO SCH ×2 (08:54→13:03)
--- NOTE | 2017-06-08 10:02 | P.CONS ---
History of Present Illness - Reason for Consult Consult date: 06/08/17 CLL. Anemia - History of Present Illness The patient is an 87-year-old white male, well known to our practice. He is followed by Dr. Dumont in the outpatient setting. He was diagnosed with CLL via flow cytometry in 2013. Since then he has been followed with observation, without any need for treatment. He was seen in consultation on 05/10/17, when he had been admitted with progressive weakness, failure to thrive as well as mental status changes. He was noted to have a drop in hemoglobin into the 6-7 range and required blood transfusions. Workup for hemolysis or other deficiency states was negative. (Iron deficiency was difficult to evaluate as iron studies were drawn after blood transfusion. No obvious bleeding was noted however) no significant change in his WBC, indicating progression of CLL was noted. The patient also had significant mental status changes, with brain imaging as well as CSF analysis being negative. There was concern for UTI/ pneumonia during this admission though cultures remained negative. The patient did improve, and was discharged to rehab. He was brought back to the hospital, as he had another episode of unresponsiveness. However this had improved by the time the patient was assessed in the ER. Hemoglobin was again noted to be low, at 7.1 and received 2 units of blood with appropriate increase in hemoglobin. WBC level showed a minor increase compared to his baseline, not suggestive of any significant progression of CLL. Consult was placed for further evaluation and recommendations Review of Systems Constitutional: Reports poor appetite, Reports weakness, Reports weight loss Eyes: denies blurred vision, denies pain Ears: deny: decreased hearing, ear discharge, earache, tinnitus Ears, nose, mouth and throat: Denies headache, Denies sore throat Cardiovascular: Reports dyspnea on exertion Respiratory: Denies cough Gastrointestinal: Denies abdominal pain, Denies diarrhea, Denies nausea, Denies vomiting Genitourinary: Reports incontinence Musculoskeletal: Reports atrophy, Reports muscle weakness Integumentary: Denies pruritus, Denies rash Neurological: Reports change in mentation, Reports confusion, Reports weakness Psychiatric: Reports confusion Endocrine: Reports fatigue, Reports weight change Hematologic/Lymphatic: Reports as per HPI Past Medical History Past Medical History: Coronary Artery Disease (CAD), Diabetes Mellitus, GERD/ Reflux, Hyperlipidemia, Hypertension, Osteoarthritis (OA), Prostate Disorder, Skin Disorder, Thyroid Disorder Additional Past Medical History / Comment(s): CLL, early stages of Parkinsons, basal cell carcinoma,per [facility] paperwork- "normal pressure hydrocephalus", difficulty walking/working with pt at [facility](walker and assist short distance) History of Any Multi-Drug Resistant Organisms: None Reported Past Surgical History: Appendectomy, Heart Catheterization With Stent Additional Past Surgical History / Comment(s): cataract, LP Past Anesthesia/Blood Transfusion Reactions: No Reported Reaction Additional Past Anesthesia/Blood Transfusion Reaction / Comm: PAST BLOOD TRANSFUSION NO KNOWN REACTION Date of Last Stent Placement:: 1994 Smoking Status: Never smoker - Past Family History Mother Family Medical History: CVA/TIA Additional Family Medical History / Comment(s): Parkinsons Father Family Medical History: Coronary Artery Disease (CAD) Medications and Allergies Home Medications Medication Instructions Recorded Confirmed Type Atorvastatin [Lipitor] 20 mg PO DAILY 05/10/17 06/07/17 History Finasteride [Proscar] 5 mg PO DAILY 05/10/17 06/07/17 History Furosemide [Lasix] 20 mg PO Q48H 05/10/17 06/07/17 History Lisinopril [Prinivil] 10 mg PO DAILY 05/10/17 06/07/17 History Acetaminophen Tab [Tylenol] 650 mg PO Q6HR PRN tab 05/16/17 06/07/17 Rx Tamsulosin [Flomax] 0.4 mg PO PC-BRKFST cap.er.24h 05/16/17 06/07/17 Rx Carbidopa-Levodopa 10-100 mg 1 each PO TID@0900,1300,2100 06/07/17 06/07/17 History [Sinemet 10-100 mg] Folic Acid 1 mg PO DAILY@0900 06/07/17 06/07/17 History INSULIN LISPRO (HumaLOG) [HumaLOG] See Protocol SQ ACHS 06/07/17 06/07/17 History Insulin Glargine,Hum.rec.anlog 6 unit SQ DAILY 06/07/17 06/07/17 History [Basaglar Kwikpen U-100] Insulin Glargine,Hum.rec.anlog 12 unit SQ HS 06/07/17 06/07/17 History [Basaglar Kwikpen U-100] Insulin Lispro [humaLOG Kwikpen] 2 unit SQ TID@0800,1200,1700 06/07/17 06/07/17 History Levothyroxine Sodium [Synthroid] 50 mcg PO QAM 06/07/17 06/07/17 History Melatonin 3 mg PO HS 06/07/17 06/07/17 History Sennosides [Senokot] 8.6 mg PO DAILY 06/07/17 06/07/17 History Thiamine [Vitamin B-1] 100 mg PO DAILY@0900 06/07/17 06/07/17 History rOPINIRole HCL [Requip] 0.25 mg PO DAILY 06/07/17 06/07/17 History Allergies Allergy/AdvReac Type Severity Reaction Status Date / Time No Known Allergies Allergy Verified 06/07/17 15:17 Physical Exam Vitals: Vital Signs Temp Pulse Pulse Resp BP BP Pulse Ox 06/08/17 08:00 96.5 F L 81 16 124/57 98 06/08/17 06:06 97.1 F L 76 16 132/71 06/08/17 04:15 97.3 F L 76 16 133/69 99 06/08/17 04:00 97.1 F L 75 16 123/68 98 06/08/17 03:45 97.1 F L 751 H 16 123/68 06/08/17 03:35 97.3 F L 76 16 143/64 98 06/08/17 02:48 97.3 F L 70 16 131/84 97 06/08/17 00:56 97.2 F L 76 16 123/61 100 06/08/17 00:26 97.2 F L 76 16 115/62 100 06/08/17 00:16 97.3 F L 74 16 131/66 100 06/08/17 00:00 97.2 F L 82 16 130/62 100 06/07/17 20:00 97.8 F 85 16 120/60 100 06/07/17 18:12 74 18 143/63 100 06/07/17 17:08 71 18 120/57 100 06/07/17 16:08 65 18 105/64 98 06/07/17 14:59 96.8 F L 96 12 87/54 98 Intake and Output 06/07/17 06/08/17 06/08/17 22:59 06:59 14:59 Intake Total 620 Output Total 475 Balance 145 Intake: Blood Product 620 Rc As-1 Unit 310 [id number] As-1 Unit 310 [id number] Output: Urine 475 Other: Weight 64 kg - Constitutional Marked generalized weakness General appearance: disheveled, no acute distress - EENT Eyes: PERRLA ENT: hearing grossly normal, normal oropharynx - Neck Neck: no lymphadenopathy Thyroid: bilateral: normal size - Respiratory Respiratory: bilateral: diminished - Cardiovascular Rhythm: regular Heart sounds: normal: S1, S2 - Gastrointestinal General gastrointestinal: normal bowel sounds, soft - Integumentary Skin is quite thin and dry, with scattered minor bruises - Neurologic Patient was drowsy, lethargic and difficult to arouse. On awakening, he appeared to be confused and was unable to state where he was, or the month. He was able to move all extremities. Neurologic: CNII-XII intact - Musculoskeletal Musculoskeletal: generalized weakness, strength equal bilaterally - Psychiatric Confused Results CBC & Chem 7: 06/08/17 06:46 06/08/17 06:46 Labs: Abnormal Lab Results - Last 24 Hours (Table) 06/07/17 06/07/17 06/07/17 Range/Units 15:13 15:13 15:13 WBC 15.1 H (3.8-10.6) k/uL RBC 2.52 L (4.30-5.90) m/uL Hgb 7.1 L (13.0-17.5) gm/dL Hct 22.8 L (39.0-53.0) % RDW (11.5-15.5) % Lymphocytes # (Manual) 10.12 H (1.0-4.8) k/uL INR (<1.2) Sodium 135 L (137-145) mmol/L BUN 33 H (9-20) mg/dL Glucose 151 H (74-99) mg/dL POC Glucose (mg/dL) (75-99) mg/dL Calcium 8.2 L (8.4-10.2) mg/dL Total Bilirubin (0.2-1.3) mg/dL AST 12 L (17-59) U/L ALT 11 L (21-72) U/L Total Creatine Kinase <20 L (55-170) U/L Total Protein 4.5 L (6.3-8.2) g/dL Albumin 2.3 L (3.5-5.0) g/dL Crossmatch 06/07/17 06/07/17 06/07/17 Range/Units 15:13 21:06 21:43 WBC 15.2 H (3.8-10.6) k/uL RBC 2.26 L (4.30-5.90) m/uL Hgb 6.4 L* (13.0-17.5) gm/dL Hct 20.4 L (39.0-53.0) % RDW (11.5-15.5) % Lymphocytes # (Manual) 10.49 H (1.0-4.8) k/uL INR 1.2 H (<1.2) Sodium (137-145) mmol/L BUN (9-20) mg/dL Glucose (74-99) mg/dL POC Glucose (mg/dL) 232 H (75-99) mg/dL Calcium (8.4-10.2) mg/dL Total Bilirubin (0.2-1.3) mg/dL AST (17-59) U/L ALT (21-72) U/L Total Creatine Kinase (55-170) U/L Total Protein (6.3-8.2) g/dL Albumin (3.5-5.0) g/dL Crossmatch 06/07/17 06/08/17 06/08/17 Range/Units 22:36 06:46 06:46 WBC 21.7 H (3.8-10.6) k/uL RBC 3.37 L (4.30-5.90) m/uL Hgb 9.4 L D (13.0-17.5) gm/dL Hct 29.8 L (39.0-53.0) % RDW 15.6 H (11.5-15.5) % Lymphocytes # (Manual) 16.06 H (1.0-4.8) k/uL INR (<1.2) Sodium (137-145) mmol/L BUN 31 H (9-20) mg/dL Glucose 70 L (74-99) mg/dL POC Glucose (mg/dL) (75-99) mg/dL Calcium (8.4-10.2) mg/dL Total Bilirubin 1.4 H (0.2-1.3) mg/dL AST 10 L (17-59) U/L ALT 18 L (21-72) U/L Total Creatine Kinase (55-170) U/L Total Protein 4.6 L (6.3-8.2) g/dL Albumin 2.3 L (3.5-5.0) g/dL Crossmatch See Detail Chest x-ray: report reviewed CT Scan - head: report reviewed Assessment and Plan (1) Anemia Narrative/Plan: The patient has had a slow drop in hemoglobin noted during follow-up in the office, opted late last year. However hemoglobin was still in the 9-10 range. The anemia noted during his previous hospitalization was therefore new and represented a significant change. As noted workup was negative. He is again persistently anemic, to the same degree. Hemoglobin is improved appropriately with blood transfusion. - Workup for anemia during his previous hospitalization was negative as noted. Blood loss cannot be totally ruled out, as iron studies may not have been accurate due to recent blood transfusion. I will repeat those again, hopefully on his blood that was drawn prior to his transfusion. If these indicate evidence of blood loss, then this would need to be investigated. Otherwise the next step in his workup would be a bone marrow to try to determine the etiology. There is no evidence of any significant progression of his CLL , based on his blood counts, to explain the anemia at this time. Current Visit: Yes Status: Acute Priority: High Code(s): D64.9 - ANEMIA, UNSPECIFIED SNOMED Code(s): 167431188 (2) Altered mental status Narrative/Plan: This has been an ongoing issue since his previous admission. The patient had improved at the time of discharge. As noted he had an extensive workup, including CSF analysis that was negative. The patient is to be seen by neurology. Await their input. Current Visit: No Status: Acute Code(s): R41.82 - ALTERED MENTAL STATUS, UNSPECIFIED SNOMED Code(s): 174169139 (3) CLL (chronic lymphocytic leukemia) Narrative/Plan: A review of his CBC is does not show any significant progression. An acute increase is seen since his blood transfusion is likely reactive. CSF cytology, as well as hemolysis workup during his previous admission was negative. Therefore, based on the available evidence, his current presentation does not appear to be related to his CLL, so far. Current Visit: No Status: Chronic Priority: Low Code(s): C91.10 - CHRONIC LYMPHOCYTIC LEUK OF B-CELL TYPE NOT ACHIEVE REMIS SNOMED Code(s): 27161730
[2017-06-08] MEDS ORDERED: FOLIC ACID 1 MG TAB PO SCH (12:00)
[2017-06-08 12:34] LABS: Glucose,Whole Blood 56 mg/dL (75-99)
[2017-06-08 12:35] LABS: Glucose,Whole Blood 76 mg/dL (75-99)
[2017-06-08 13:32] VITALS: TEMP 97.1
[2017-06-08 15:24] LABS: Glucose,Whole Blood 142 mg/dL (75-99)
[2017-06-08 15:33] LABS: Hemoglobin A1C 7.3 % (4.0-6.0)
[2017-06-08 15:34] VITALS: BP 131/75; PULSE 68
--- NOTE | 2017-06-08 16:24 | P.HPIM ---
History of Present Illness 87-year-old male known to me from previous hospitalization was brought from long-term as he was found unresponsive although by the time family and EMS arrived patient was unresponsive. Patient the was transferred to ER here with concerns of aspiration on the chest x-ray did not show any aspiration pneumonitis patient's chest x-ray did not show any pneumonic process is essentially negative patient denied any symptoms mental status is at his baseline patient does have from history of liver dementia Parkinson's a normal pressure hydrocephalus had evaluation in the past in [facility] no further intervention is recommended at that time patient was basically admitted for neurological evaluation neurology valid the patient no further recommendations from them no signs or symptoms were appreciated blood glucose is essentially within normal limits. There is no much further workup that can be done here patient will be discharged back to long-term. 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 There was a concern about shingles examine his skin and did not appreciate any singles Review of Systems REVIEW OF SYSTEMS: CONSTITUTIONAL: No fever, no malaise, no fatigue. HEENT: No recent visual problems or hearing problems. Denied any sore throat. CARDIOVASCULAR: No chest pain, orthopnea, PND, no palpitations, no syncope. PULMONARY: No shortness of breath, no cough, no hemoptysis. GASTROINTESTINAL: No diarrhea, no nausea, no vomiting, no abdominal pain. Normoactive bowel sounds. NEUROLOGICAL: No headaches, no weakness, no numbness. HEMATOLOGICAL: Denies any bleeding or petechiae. GENITOURINARY: Denies any burning micturition, frequency, or urgency. MUSCULOSKELETAL/RHEUMATOLOGICAL: Denies any joint pain, swelling, or any muscle pain. ENDOCRINE: Denies any polyuria or polydipsia. The rest of the 14-point review of systems is negative. Past Medical History Past Medical History: Coronary Artery Disease (CAD), Diabetes Mellitus, GERD/ Reflux, Hyperlipidemia, Hypertension, Osteoarthritis (OA), Prostate Disorder, Skin Disorder, Thyroid Disorder Additional Past Medical History / Comment(s): CLL, early stages of Parkinsons, basal cell carcinoma,per [facility] paperwork- "normal pressure hydrocephalus", difficulty walking/working with pt at [facility](walker and assist short distance) History of Any Multi-Drug Resistant Organisms: None Reported Past Surgical History: Appendectomy, Heart Catheterization With Stent Additional Past Surgical History / Comment(s): cataract, LP Past Anesthesia/Blood Transfusion Reactions: No Reported Reaction Additional Past Anesthesia/Blood Transfusion Reaction / Comment(s): PAST BLOOD TRANSFUSION NO KNOWN REACTION Date of Last Stent Placement:: 1994 Smoking Status: Never smoker - Past Family History Mother Family Medical History: CVA/TIA Additional Family Medical History / Comment(s): Parkinsons Father Family Medical History: Coronary Artery Disease (CAD) Medications and Allergies Home Medications Medication Instructions Recorded Confirmed Type Atorvastatin [Lipitor] 20 mg PO DAILY 05/10/17 06/07/17 History Finasteride [Proscar] 5 mg PO DAILY 05/10/17 06/07/17 History Furosemide [Lasix] 20 mg PO Q48H 05/10/17 06/07/17 History Lisinopril [Prinivil] 10 mg PO DAILY 05/10/17 06/07/17 History Acetaminophen Tab [Tylenol] 650 mg PO Q6HR PRN tab 05/16/17 06/07/17 Rx Tamsulosin [Flomax] 0.4 mg PO PC-BRKFST cap.er.24h 05/16/17 06/07/17 Rx Carbidopa-Levodopa 10-100 mg 1 each PO TID@0900,1300,2100 06/07/17 06/07/17 History [Sinemet 10-100 mg] Folic Acid 1 mg PO DAILY@0900 06/07/17 06/07/17 History INSULIN LISPRO (HumaLOG) [HumaLOG] See Protocol SQ ACHS 06/07/17 06/07/17 History Insulin Glargine,Hum.rec.anlog 6 unit SQ DAILY 06/07/17 06/07/17 History [Basaglar Kwikpen U-100] Insulin Glargine,Hum.rec.anlog 12 unit SQ HS 06/07/17 06/07/17 History [Basaglar Kwikpen U-100] Insulin Lispro [humaLOG Kwikpen] 2 unit SQ TID@0800,1200,1700 06/07/17 06/07/17 History Levothyroxine Sodium [Synthroid] 50 mcg PO QAM 06/07/17 06/07/17 History Melatonin 3 mg PO HS 06/07/17 06/07/17 History Sennosides [Senokot] 8.6 mg PO DAILY 06/07/17 06/07/17 History Thiamine [Vitamin B-1] 100 mg PO DAILY@0900 06/07/17 06/07/17 History rOPINIRole HCL [Requip] 0.25 mg PO DAILY 06/07/17 06/07/17 History Allergies Allergy/AdvReac Type Severity Reaction Status Date / Time No Known Allergies Allergy Verified 06/07/17 15:17 Physical Exam Vitals: Vital Signs Temp Pulse Pulse Resp BP BP Pulse Ox 06/08/17 15:23 97.1 F L 68 16 131/75 97 06/08/17 12:00 97.1 F L 73 16 132/63 98 06/08/17 08:00 96.5 F L 81 16 124/57 98 06/08/17 06:06 97.1 F L 76 16 132/71 06/08/17 04:15 97.3 F L 76 16 133/69 99 06/08/17 04:00 97.1 F L 75 16 123/68 98 06/08/17 03:45 97.1 F L 751 H 16 123/68 06/08/17 03:35 97.3 F L 76 16 143/64 98 06/08/17 02:48 97.3 F L 70 16 131/84 97 06/08/17 00:56 97.2 F L 76 16 123/61 100 06/08/17 00:26 97.2 F L 76 16 115/62 100 06/08/17 00:16 97.3 F L 74 16 131/66 100 06/08/17 00:00 97.2 F L 82 16 130/62 100 06/07/17 20:00 97.8 F 85 16 120/60 100 06/07/17 18:12 74 18 143/63 100 06/07/17 17:08 71 18 120/57 100 Intake and Output 06/08/17 06/08/17 06/08/17 06:59 14:59 22:59 Intake Total 620 1236 Output Total 475 300 Balance 145 936 Intake: IV 1000 Sodium Chloride 0.9% 1, 1000 000 ml @ 75 mls/hr IV . [id number] Rx#:[id number] Oral 236 Blood Product 620 Rc As-1 Unit 310 [id number] Rc As-1 Unit 310 [id number] Output: Urine 475 300 Other: Voiding Method Urinal # Voids 1 Weight 64 kg PHYSICAL EXAMINATION: GENERAL: The patient is alert and oriented x2, not in any acute distress. Well developed, well nourished. HEENT: Pupils are round and equally reacting to light. EOMI. No scleral icterus. No conjunctival pallor. Normocephalic, atraumatic. No pharyngeal erythema. No thyromegaly. CARDIOVASCULAR: S1 and S2 present. No murmurs, rubs, or gallops. PULMONARY: Chest is clear to auscultation, no wheezing or crackles. ABDOMEN: Soft, nontender, nondistended, normoactive bowel sounds. No palpable organomegaly. MUSCULOSKELETAL: No joint swelling or deformity. EXTREMITIES: No cyanosis, clubbing, or pedal edema. NEUROLOGICAL: Patient does have bilateral lower limb muscle atrophy no new focal neurological deficits were appreciated mental status at his baseline SKIN: No rashes. Results CBC & Chem 7: 06/08/17 06:46 06/08/17 06:46 Labs: Abnormal Lab Results - Last 24 Hours (Table) 06/07/17 06/07/17 06/07/17 Range/Units 15:13 21:06 21:43 WBC 15.2 H (3.8-10.6) k/uL RBC 2.26 L (4.30-5.90) m/uL Hgb 6.4 L* (13.0-17.5) gm/dL Hct 20.4 L (39.0-53.0) % RDW (11.5-15.5) % Lymphocytes # (Manual) 10.49 H (1.0-4.8) k/uL BUN (9-20) mg/dL Glucose (74-99) mg/dL POC Glucose (mg/dL) 232 H (75-99) mg/dL Total Bilirubin (0.2-1.3) mg/dL AST (17-59) U/L ALT (21-72) U/L Total Creatine Kinase <20 L (55-170) U/L Total Protein (6.3-8.2) g/dL Albumin (3.5-5.0) g/dL Crossmatch 06/07/17 06/08/17 06/08/17 Range/Units 22:36 06:46 06:46 WBC 21.7 H (3.8-10.6) k/uL RBC 3.37 L (4.30-5.90) m/uL Hgb 9.4 L D (13.0-17.5) gm/dL Hct 29.8 L (39.0-53.0) % RDW 15.6 H (11.5-15.5) % Lymphocytes # (Manual) 16.06 H (1.0-4.8) k/uL BUN 31 H (9-20) mg/dL Glucose 70 L (74-99) mg/dL POC Glucose (mg/dL) (75-99) mg/dL Total Bilirubin 1.4 H (0.2-1.3) mg/dL AST 10 L (17-59) U/L ALT 18 L (21-72) U/L Total Creatine Kinase (55-170) U/L Total Protein 4.6 L (6.3-8.2) g/dL Albumin 2.3 L (3.5-5.0) g/dL Crossmatch See Detail 18 06/08/17 Range/Units 11:37 15:07 WBC (3.8-10.6) k/uL RBC (4.30-5.90) m/uL Hgb (13.0-17.5) gm/dL Hct (39.0-53.0) % RDW (11.5-15.5) % Lymphocytes # (Manual) (1.0-4.8) k/uL BUN (9-20) mg/dL Glucose (74-99) mg/dL POC Glucose (mg/dL) 56 L 142 H (75-99) mg/dL Total Bilirubin (0.2-1.3) mg/dL AST (17-59) U/L ALT (21-72) U/L Total Creatine Kinase (55-170) U/L Total Protein (6.3-8.2) g/dL Albumin (3.5-5.0) g/dL Crossmatch Assessment and Plan Plan: -Possibility of altered mental status: Patient mental status he is at his baseline all the workup is negative this may be related to his baseline dementia rather than delirium I do not believe patient has indicated of encephalopathy at this time. -Type 2 diabetes mellitus: Well controlled blood sugars continue with present insulin regimen -history of Parkinson's with lobar dementia -Hyperlipidemia -Hypertension -Restless leg syndrome: Can continue carbidopa levodopa metoprolol which can also help with restless leg -Hypothyroidism Patient will be discharged back to long-term today no further intervention no further workup is necessary at this point of time
--- NOTE | 2017-06-08 16:24 | P.DS ---
Providers Date of admission: 06/07/17 16:50 Attending physician: Radha Mansfield Consults: 06/07/17 16:50 Consult Physician Urgent Consulting Provider: Ivon Huff Consult Reason/Comments: Unresponsiveness, normal pressure hydrocephalus Do you want consulting provider notified?: Yes 06/07/17 22:27 Consult Physician Routine Consulting Provider: Anand Genao Consult Reason/Comments: History CLL, low hemoglobin Do you want consulting provider notified?: Yes, Notify in am Primary care physician: [facility] Course: Please refer to my HPI Plan - Discharge Summary Discharge Rx Participant: No New Discharge Prescriptions: No Action Furosemide [Lasix] 20 mg PO Q48H Lisinopril [Prinivil] 10 mg PO DAILY Finasteride [Proscar] 5 mg PO DAILY Atorvastatin [Lipitor] 20 mg PO DAILY Acetaminophen Tab [Tylenol] 650 mg PO Q6HR PRN tab PRN Reason: Fever and/ or Mild Pain Tamsulosin [Flomax] 0.4 mg PO PC-BRKFST cap.er.24h INSULIN LISPRO (HumaLOG) [HumaLOG] See Protocol SQ ACHS Insulin Lispro [humaLOG Kwikpen] 2 unit SQ TID@0800,1200,1700 Carbidopa-Levodopa 10-100 mg [Sinemet 10-100 mg] 1 each PO TID@0900,1300,2100 Sennosides [Senokot] 8.6 mg PO DAILY rOPINIRole HCL [Requip] 0.25 mg PO DAILY Thiamine [Vitamin B-1] 100 mg PO DAILY@0900 Melatonin 3 mg PO HS Levothyroxine Sodium [Synthroid] 50 mcg PO QAM Folic Acid 1 mg PO DAILY@0900 Insulin Glargine,Hum.rec.anlog [Basaglar Kwikpen U-100] 12 unit SQ HS Insulin Glargine,Hum.rec.anlog [Basaglar Kwikpen U-100] 6 unit SQ DAILY Discharge Medication List Atorvastatin [Lipitor] 20 mg PO DAILY 05/10/17 [History] Finasteride [Proscar] 5 mg PO DAILY 05/10/17 [History] Furosemide [Lasix] 20 mg PO Q48H 05/10/17 [History] Lisinopril [Prinivil] 10 mg PO DAILY 05/10/17 [History] Acetaminophen Tab [Tylenol] 650 mg PO Q6HR PRN tab 05/16/17 [Rx] Tamsulosin [Flomax] 0.4 mg PO PC-BRKFST cap.er.24h 05/16/17 [Rx] Carbidopa-Levodopa 10-100 mg [Sinemet 10-100 mg] 1 each PO TID@0900,1300,2100 [History] Folic Acid 1 mg PO DAILY@0900 06/07/17 [History] INSULIN LISPRO (HumaLOG) [HumaLOG] See Protocol SQ ACHS 06/07/17 [History] Insulin Glargine,Hum.rec.anlog [Basaglar Kwikpen U-100] 6 unit SQ DAILY [History] Insulin Glargine,Hum.rec.anlog [Basaglar Kwikpen U-100] 12 unit SQ HS 06/07/17 [ History] Insulin Lispro [humaLOG Kwikpen] 2 unit SQ TID@0800,1200,1700 06/07/17 [History] Levothyroxine Sodium [Synthroid] 50 mcg PO QAM 06/07/17 [History] Melatonin 3 mg PO HS 06/07/17 [History] Sennosides [Senokot] 8.6 mg PO DAILY 06/07/17 [History] Thiamine [Vitamin B-1] 100 mg PO DAILY@0900 06/07/17 [History] rOPINIRole HCL [Requip] 0.25 mg PO DAILY 06/07/17 [History] Follow up Appointment(s)/Referral(s): Laura Rock MD [STAFF PHYSICIAN] - 1-2 days Chauncey Galeas MD [STAFF PHYSICIAN] - 1 Week Patient Instructions/Handouts: Hypoglycemia in a Person with Diabetes (DC) Discharge Disposition: TRANSFER TO SNF/ECF
[2017-06-08 17:26] LABS: Glucose,Whole Blood 136 mg/dL (75-99)
--- NOTE | 2017-06-08 18:04 | P.CNNES ---
History of Present Illness Consult date: 06/08/17 Reason for Consult: [facility] at [facility]. History of Present Illness: This patient is a pleasant 87-year-old right-handed white male was brought into the emergency room yesterday after having an episode of [facility] at the [facility] where [facility]. Patient has had recent extensive neurological evaluation for possibility of worsening Parkinson's disease and Parkinson's dementia. He is also been recently evaluated at [facility] for normal pressure hydrocephalus. Patient was therefore over 10 days and underwent extensive evaluation. Neurosurgical impression after obtaining a cisternogram and repeat lumbar puncture was that the patient had nonreversible NPH. Patient was seen by neurology who also felt he had underlying Parkinson's disease and Parkinson's dementia. There is also some concern for Lewy body disease as he has been having hallucinations as well. The patient was discharged to [facility] on the [facility]. According to the daughter Alyssa who is been his primary caregiver at home, noted that he had an episode of unresponsiveness. Apparently his head was severely bent forward and he was unarousable and there was concern whether he may have aspirated. For this reason he was taken by EMS and brought into the emergency room yesterday for further evaluation. He underwent a chest x-ray which came back negative for any signs of infiltrate. Patient has a history of CLL and is being followed in the oncology clinic by Dr. Genao. He was seen by Dr. Genao today for his anemia. Hemoglobin has been ranging between [address] Genao is considering whether bone marrow biopsy would be of further benefit. There was no evidence on his examination for significant progression of his CLL. His blood counts were felt to be reasonable. As noted the patient had been evaluated for NPH at [facility] and was seen by neurosurgery and neurology. It is still unclear of the final recommendations from this recent hospitalization attending report. His daughter Alyssa is trying to obtain further final recommendations by team of physicians that had seen him there just recently. The daughter is also planning to get a second opinion with the specialists at [facility] in the very near future for their further evaluation as well. According to his daughter Alyssa Dr. Rock who is [facility] at the [facility] feels it would be good to have him evaluated in the special clinic at [facility]. Daughter will let us know once this is been arranged. Patient was evaluated today and seems to be doing better in terms of his overall mental status since his last admission to the hospital. He seems to be more awake and alert and is conversant fairly easily. As noted he does have underlying dementia but still seems to be keeping on task fairly easy one question. The patient is being considered for [facility] the [facility] as he seems to be doing well. He did have a computed tomography scan of the brain done yesterday in the emergency room and the report indicated cerebral atrophy with no acute intracranial abnormality and no change from study done on 05/10/2017. The results of the CAT scan was reviewed today with his daughter Alyssa. As noted this is still been a concern whether he may have NPH. We will need to continue close monitoring of his neurological status. He is to continue on his current medications which include Sinemet and Requip for management of his Parkinson's disease. Case was discussed at length with the patient's daughter Cedric as well as 2 other family members at bedside. We spent over one hour discussing his overall condition and will await further assessment by the specialists at [facility] regarding his condition and of NPH. Patient is tentatively scheduled for follow-up in the outpatient neurology clinic later this month and we may be able to update his findings at that time. Neurology is now been consulted for further evaluation and recommendations. Review of Systems Constitutional: Denies chills, Denies fever Eyes: denies blurred vision, denies pain Ears, nose, mouth and throat: Denies headache, Denies sore throat Cardiovascular: Denies chest pain, Denies shortness of breath Respiratory: Denies cough Gastrointestinal: Denies abdominal pain, Denies diarrhea, Denies nausea, Denies vomiting Musculoskeletal: Denies myalgias Integumentary: Denies pruritus, Denies rash Neurological: Reports change in mentation, Reports gait dysfunction, Reports memory loss, Reports motor disturbance, Denies numbness, Denies weakness Psychiatric: Denies anxiety, Denies depression Endocrine: Denies fatigue, Denies weight change Past Medical History Past Medical History: Coronary Artery Disease (CAD), Diabetes Mellitus, GERD/ Reflux, Hyperlipidemia, Hypertension, Osteoarthritis (OA), Prostate Disorder, Skin Disorder, Thyroid Disorder Additional Past Medical History / Comment(s): CLL, early stages of Parkinsons, basal cell carcinoma,per [facility] paperwork- "normal pressure hydrocephalus", difficulty walking/working with pt at [facility](walker and assist short distance) History of Any Multi-Drug Resistant Organisms: None Reported Past Surgical History: Appendectomy, Heart Catheterization With Stent Additional Past Surgical History / Comment(s): cataract, LP Past Anesthesia/Blood Transfusion Reactions: No Reported Reaction Additional Past Anesthesia/Blood Transfusion Reaction / Comment(s): PAST BLOOD TRANSFUSION NO KNOWN REACTION Date of Last Stent Placement:: 1994 Smoking Status: Never smoker - Past Family History Mother Family Medical History: CVA/TIA Additional Family Medical History / Comment(s): Parkinsons Father Family Medical History: Coronary Artery Disease (CAD) Medications and Allergies Home Medications Medication Instructions Recorded Confirmed Type Atorvastatin [Lipitor] 20 mg PO DAILY 05/10/17 06/07/17 History Finasteride [Proscar] 5 mg PO DAILY 05/10/17 06/07/17 History Furosemide [Lasix] 20 mg PO Q48H 05/10/17 06/07/17 History Lisinopril [Prinivil] 10 mg PO DAILY 05/10/17 06/07/17 History Acetaminophen Tab [Tylenol] 650 mg PO Q6HR PRN tab 05/16/17 06/07/17 Rx Tamsulosin [Flomax] 0.4 mg PO PC-[id number] cap.er.24h 05/16/17 06/07/17 Rx Carbidopa-Levodopa 10-100 mg 1 each PO TID@0900,1300,2100 06/07/17 06/07/17 History [Sinemet 10-100 mg] Folic Acid 1 mg PO DAILY@0900 06/07/17 06/07/17 History INSULIN LISPRO (HumaLOG) [HumaLOG] See Protocol SQ ACHS 06/07/17 06/07/17 History Insulin Glargine,Hum.rec.anlog 6 unit SQ DAILY 06/07/17 06/07/17 History [Basaglar Kwikpen U-100] Insulin Glargine,Hum.rec.anlog 12 unit SQ HS 06/07/17 06/07/17 History [Basaglar Kwikpen U-100] Insulin Lispro [humaLOG Kwikpen] 2 unit SQ TID@0800,1200,1700 06/07/17 06/07/17 History Levothyroxine Sodium [Synthroid] 50 mcg PO QAM 06/07/17 06/07/17 History Melatonin 3 mg PO HS 06/07/17 06/07/17 History Sennosides [Senokot] 8.6 mg PO DAILY 06/07/17 06/07/17 History Thiamine [Vitamin B-1] 100 mg PO DAILY@0900 06/07/17 06/07/17 History rOPINIRole HCL [Requip] 0.25 mg PO DAILY 06/07/17 06/07/17 History Allergies Allergy/AdvReac Type Severity Reaction Status Date / Time No Known Allergies Allergy Verified 06/07/17 15:17 Physical Examination - Vital Signs Vital Signs: Vital Signs Temp Pulse Pulse Resp BP BP Pulse Ox 06/08/17 15:23 97.1 F L 68 16 131/75 97 06/08/17 12:00 97.1 F L 73 16 132/63 98 06/08/17 08:00 96.5 F L 81 16 124/57 98 06/08/17 06:06 97.1 F L 76 16 132/71 06/08/17 04:15 97.3 F L 76 16 133/69 99 06/08/17 04:00 97.1 F L 75 16 123/68 98 06/08/17 03:45 97.1 F L 751 H 16 123/68 06/08/17 03:35 97.3 F L 76 16 143/64 98 06/08/17 02:48 97.3 F L 70 16 131/84 97 06/08/17 00:56 97.2 F L 76 16 123/61 100 06/08/17 00:26 97.2 F L 76 16 115/62 100 06/08/17 00:16 97.3 F L 74 16 131/66 100 06/08/17 00:00 97.2 F L 82 16 130/62 100 06/07/17 20:00 97.8 F 85 16 120/60 100 06/07/17 18:12 74 18 143/63 100 Intake and Output 06/08/17 06/08/17 06/08/17 06:59 14:59 22:59 Intake Total 620 1236 Output Total 475 300 Balance 145 936 Intake: IV 1000 Sodium Chloride 0.9% 1, 1000 000 ml @ 75 mls/hr IV . [id number] ONE Rx#:[id number] Oral 236 Blood Product 620 As-1 Unit 310 [id number] As-1 Unit 310 [id number] Output: Urine 475 300 Other: Voiding Method Urinal # Voids 1 Weight 64 kg - Constitutional General appearance: average body habitus, cooperative - EENT EENT: PERRL, mucous membranes moist - Respiratory Respiratory: lungs clear, normal breath sounds - Cardiovascular Cardiovascular: regular rate, normal S1, normal S2 Extremities: no peripheral edema bilaterally - Gastrointestinal Gastrointestinal: normoactive bowel sounds - Integumentary Integumentary: normal - Neurologic Cranial nerve examination: PERRL, EOMI, VFF, face symmetric, intact gag reflex, intact corneal reflex, normal palatal elevation Speech examination: intact Sensorimotor examination: intact Motor examination - right side: 3/5: biceps, triceps, wrist flexion, wrist extension, director transportation, hip flexors, knee extensors, dorsiflexion, toe extension (EHL) , plantarflexion Motor examination - left side: 3/5: biceps, triceps, wrist flexion, wrist extension, director transportation, hip flexors, knee extensors, dorsiflexion, toe extension (EHL) , plantarflexion Detailed sensory examination: intact Reflex and gait examination: intact Reflexes: 1+: ankle, bicep, knee, tricep - Musculoskeletal Musculoskeletal: no pain - Psychiatric Psychiatric: mood/affect appropriate, cooperative Results - Laboratory Findings CBC and BMP: 06/08/17 06:46 06/08/17 06:46 Abnormal Lab Findings: Abnormal Labs 06/07/17 06/07/17 06/07/17 15:13 15:13 15:13 WBC 15.1 H RBC 2.52 L Hgb 7.1 L Hct 22.8 L RDW Lymphocytes # (Manual) 10.12 H INR Sodium 135 L BUN 33 H Glucose 151 H POC Glucose (mg/dL) Calcium 8.2 L Total Bilirubin AST 12 L ALT 11 L Total Creatine Kinase <20 L Total Protein 4.5 L Albumin 2.3 L Crossmatch 06/07/17 06/07/17 06/07/17 15:13 21:06 21:43 WBC 15.2 H RBC 2.26 L Hgb 6.4 L* Hct 20.4 L RDW Lymphocytes # (Manual) 10.49 H INR 1.2 H Sodium BUN Glucose POC Glucose (mg/dL) 232 H Calcium Total Bilirubin AST ALT Total Creatine Kinase Total Protein Albumin Crossmatch 06/07/17 06/08/17 06/08/17 22:36 06:46 06:46 WBC 21.7 H RBC 3.37 L Hgb 9.4 L D Hct 29.8 L RDW 15.6 H Lymphocytes # (Manual) 16.06 H INR Sodium BUN 31 H Glucose 70 L POC Glucose (mg/dL) Calcium Total Bilirubin 1.4 H AST 10 L ALT 18 L Total Creatine Kinase Total Protein 4.6 L Albumin 2.3 L Crossmatch See Detail 06/08/17 06/08/17 06/08/17 11:37 15:07 17:05 WBC RBC Hgb Hct RDW Lymphocytes # (Manual) INR Sodium BUN Glucose POC Glucose (mg/dL) 56 L 142 H 136 H Calcium Total Bilirubin AST ALT Total Creatine Kinase Total Protein Albumin Crossmatch Assessment and Plan (1) Parkinsons disease Current Visit: No Status: Acute Code(s): G20 - PARKINSON'S DISEASE SNOMED Code(s): 91309377 (2) Normal pressure hydrocephalus Current Visit: No Status: Acute Code(s): G91.2 - (IDIOPATHIC) NORMAL PRESSURE HYDROCEPHALUS SNOMED Code(s): 73677794 (3) Dementia Current Visit: No Status: Acute Code(s): F03.90 - UNSPECIFIED DEMENTIA WITHOUT BEHAVIORAL DISTURBANCE SNOMED Code(s): 42990847 (4) Anemia Current Visit: Yes Status: Acute Priority: High Code(s): D64.9 - ANEMIA, UNSPECIFIED SNOMED Code(s): 924906581 Plan: This patient is a 87-year-old male who is being evaluated [facility]. Patient apparently was unresponsive with this head tilted forward with no response for several minutes. EMS was called and he was brought into the emergency room for further evaluation yesterday. He underwent a computed tomography scan of the brain results of which are noted above. There was concern for possibility of aspiration and chest x-ray was completed and was negative. Patient is much more awake today and is responsive. He is being evaluated for possibility of Parkinson's dementia and Lewy body disease as well as NPH. His daughter who is his power of straightening press operator and with whom he lives is planning to get a second opinion regarding his overall neurological status Saturday specialty clinic at [facility]. The patient seems to be near baseline level of function. He is to continue on his current dose of Sinemet and Requip. His Parkinson's condition remained stable. We will continue to follow his progress closely during this admission. We will plan to reevaluate him as scheduled later this month in the outpatient neurology clinic. This was discussed at length with the patient's daughter Alyssa and all of his current findings were discussed in detail with her nurse sister as well as other family members at bedside. We will plan to reevaluate him in a few weeks. His overall prognosis at this time remains guarded. Time with Patient: Greater than 30
[2017-06-08 18:08] LABS: Iron Saturation 6.63 (15.00-50.00)
[2017-06-11 18:01] LABS: HGB 9.4 gm/dL (13.0-17.5)
== END 2017-06-08 18:08 | DRG 57 ==
LOC: SUPCPDRO 14:59 → EC 14:59 → 6SEL 16:50
PROVIDERS: ADMIT Internal Medicine; ATTEND Internal Medicine
PROC: 30233N1 Transfusion of Nonautologous Red Blood Cells into Peripheral Vein, Percutaneous Approach (ICD-10-PCS; principal; 2017-06-07)
DX: G20 Parkinson's disease (principal); G91.2 (Idiopathic) normal pressure hydrocephalus; C91.10 Chronic lymphocytic leukemia of B-cell type not having achieved remission; D64.9 Anemia, unspecified; E11.9 Type 2 diabetes mellitus without complications; D72.829 Elevated white blood cell count, unspecified; E03.9 Hypothyroidism, unspecified; E78.5 Hyperlipidemia, unspecified; F02.80 Dementia in other diseases classified elsewhere, unspecified severity, without behavioral disturbance, psychotic disturbance, mood disturbance, and anxiety; I10 Essential (primary) hypertension; G25.81 Restless legs syndrome; R62.7 Adult failure to thrive; I25.10 Atherosclerotic heart disease of native coronary artery without angina pectoris; K21.9 Gastro-esophageal reflux disease without esophagitis; M19.91 Primary osteoarthritis, unspecified site; R26.2 Difficulty in walking, not elsewhere classified; N42.9 Disorder of prostate, unspecified; Z79.4 Long term (current) use of insulin; Z79.899 Other long term (current) drug therapy; Z95.5 Presence of coronary angioplasty implant and graft; Z98.49 Cataract extraction status, unspecified eye; Z85.828 Personal history of other malignant neoplasm of skin; Z82.0 Family history of epilepsy and other diseases of the nervous system; Z90.49 Acquired absence of other specified parts of digestive tract
CPT/HCPCS: 36415; 70450; 71046; 80053; 81003; 82550; 82553; 82728; 83036; 83540; 83550; 83735; 84484; 85025; 85610; 85730; 86850; 86900; 86901; 86920; 87040; 87502; 96360; 96361; 99285